=== PATIENT | female | born 1955 | race Caucasian/White ===

== ENCOUNTER 2017-09-01 16:46 | Emergency (ER) | payer MEDICAID ==
[~2017-09-01] VITALS: Ht 165.1 cm; Wt 52.2 kg
[~2017-09-01 16:46] MED LIST: ALBU18HF2 IH; ARIP5TAB4 PO; BAC10T PO; BUPR150T8 PO; CALC260T6 PO; CLIN-80 PO; CLON-527 PO; IBUP-1984 PO; LEVA15HF4 IH; LUBI8CAP PO; NICO-62 TD; NITR100C PO; OMEP20TA23 PO; PRED20TA PO; PROP20TA6 PO; ROSU20TA PO; TRAM50TA2 PO; ZOLP5TAB8 PO
[2017-09-01 16:55] VITALS: BP 130/76
== END 2017-09-01 19:04 | disposition home or self-care (01) ==
LOC: ER 16:47
DX: S40.021A Contusion of right upper arm, initial encounter (principal); J44.9 Chronic obstructive pulmonary disease, unspecified; G89.29 Other chronic pain; I49.9 Cardiac arrhythmia, unspecified; F17.200 Nicotine dependence, unspecified, uncomplicated; Z56.0 Unemployment, unspecified; Z79.899 Other long term (current) drug therapy; X58.XXXA Exposure to other specified factors, initial encounter; Y93.89 Activity, other specified; Y92.89 Other specified places as the place of occurrence of the external cause; Y99.8 Other external cause status
CPT/HCPCS: 99281

== ENCOUNTER 2017-12-10 13:32 | Emergency (ER) | payer MEDICAID ==
[~2017-12-10] VITALS: Ht 565.3 cm; Wt 49.0 kg
[~2017-12-10 13:32] MED LIST changes: -ARIP5TAB4 PO; -BUPR150T8 PO; -CALC260T6 PO; -CLIN-80 PO; +HALO2TAB PO; -IBUP-1984 PO; -LEVA15HF4 IH; +LORA-269 PO; -LUBI8CAP PO; +LURA40TA3 PO; -NICO-62 TD; -NITR100C PO; -OMEP20TA23 PO; -PRED20TA PO; -ROSU20TA PO; -TRAM50TA2 PO; -ZOLP5TAB8 PO
[2017-12-10 14:48] LABS: BASOPHILS % (AUTO) 0.3 % (0-1); EOSINOPHILS % (AUTO) 0.5 % (0-6); HEMATOCRIT 36.8 % (35.0-45.0); HEMOGLOBIN 12.7 g/dl (12.0-16.0); LYMPHOCYTES # (AUTO) 2.5 X10'3 (1.1-4.8); LYMPHOCYTES % (AUTO) 31.9 % (21-51); MEAN CORPUSCULAR HEMOGLOBIN 31.3 PG (27.0-31.0); MEAN CORPUSCULAR HGB CONC 34.5 % (33.0-36.5); MEAN CORPUSCULAR VOLUME 90.6 FL (78-98); MEAN PLATELET VOLUME 8.9 FL (7.4-10.4); MONOCYTES # (AUTO) 0.4 X10'3 (0-0.9); MONOCYTES % (AUTO) 5.5 % (2-12); NEUTROPHILS # (AUTO) 4.9 X10'3 (1.8-7.7); NEUTROPHILS % (AUTO) 61.8 % (42-75); PLATELET COUNT 216 X10'3 (140-440); RED BLOOD COUNT 4.06 X10'6 (4.20-5.60); RED CELL DISTRIBUTION WIDTH 12.9 % (11.5-14.5); WHITE BLOOD COUNT 7.9 X10'3 (4.5-11.0)
[2017-12-10 14:57] LABS: PROTHROMBIN TIME 10.3 SECONDS (9.0-12.0)
[2017-12-10 15:03] LABS: ALANINE AMINOTRANSFERASE 18 U/L (12-78); ALBUMIN 4.5 G/DL (3.4-5.0); ALBUMIN/GLOBULIN RATIO 1.1 (1.1-1.5); ALKALINE PHOSPHATASE 76 IU/L (46-116); ANION GAP 10 (8-16); ASPARTATE AMINO TRANSFERASE 21 U/L (10-37); BILIRUBIN,TOTAL 0.4 MG/DL (0.1-1.0); BLOOD UREA NITROGEN 13 MG/DL (7-18); BUN/CREATININE RATIO 12.7 (6.6-38.0); CALCIUM 9.1 MG/DL (8.5-10.1); CHLORIDE 105 MMOL/L (99-107); CREATININE 1.02 MG/DL (0.40-0.90); GLUCOSE 88 MG/DL (70-104); POTASSIUM 4.2 MMOL/L (3.5-5.1); SODIUM 141 MMOL/L (135-145); TOTAL CARBON DIOXIDE 26.5 MMOL/L (24-32); TOTAL PROTEIN 8.5 G/DL (6.4-8.2); eGFR 55 ML/MIN
[2017-12-10 15:13] LABS: ETHANOL < 0.010 GM/DL (0.0-0.010)
[2017-12-10] MEDS ORDERED: LORA10TA7 PO (15:34)
[2017-12-10] MEDS ORDERED: ZOL50T PO (15:37)
[2017-12-10 16:07] LABS: CLARITY,URINE CLEAR (Clear); COLOR,URINE YELLOW (Yellow); GLUCOSE, URINE NEGATIVE (Neg); KETONES,URINE NEGATIVE (Neg); LEUKOCYTE ESTERASE ,URINE MODERATE (Neg); NITRITES, URINE NEGATIVE (Neg); OCCULT BLOOD,URINE NEGATIVE (Neg); PH,URINE 5.5 (4.8-8.0); PROTEIN,URINE NEGATIVE (Neg); UROBILINOGEN,URINE 0.2 E.U/dL (0.2-1.0)
[2017-12-10 16:10] LABS: URINE HCG NEGATIVE (NEG)
[2017-12-10 16:12] LABS: UA COLLECTION TYPE CLN CATCH MIDSTREAM
[2017-12-10 16:15] LABS: BACTERIA,URINE NONE SEEN /HPF (Neg); MUCUS STRANDS NONE SEEN /LPF (Neg); RBC,URINE NONE SEEN /HPF (0-2); SQUAMOUS EPITHELIAL CELL,UR FEW /LPF (FEW)
[2017-12-10 16:18] LABS: URINE AMPHETAMINE SCREEN NEGATIVE (Neg); URINE BARBITUATE SCREEN NEGATIVE (Neg); URINE BENZODIAZEPINES SCREEN NEGATIVE (Neg); URINE CANNABINOID SCREEN NEGATIVE (Neg); URINE COCAINE SCREEN NEGATIVE (Neg); URINE METHADONE SCREEN NEGATIVE (Neg); URINE OPIATE SCREEN NEGATIVE (Neg); URINE PHENCYCLIDINE SCREEN NEGATIVE (Neg)
[2017-12-10] MEDS ORDERED: mirtazapine 15mg tablet PO SCH (21:00)
[2017-12-10] MEDS: propranolol 10mg tablet PO SCH (21:13)
[2017-12-10] MEDS: baclofen 10mg tablet PO SCH (21:13)
[2017-12-11 05:33] VITALS: BP 93/58
[2017-12-11] MEDS: propranolol 10mg tablet PO SCH ×2 (08:00→13:00)
[2017-12-11] MEDS ORDERED: sertraline 50mg tablet PO SCH (08:00)
[2017-12-11] MEDS ORDERED: loratadine 10mg tablet PO SCH (08:00)
[2017-12-11] MEDS: baclofen 10mg tablet PO SCH (09:19)
[2017-12-11] MEDS ORDERED: MECL-111 PO (11:37)
[2017-12-11] MEDS ORDERED: DIPH25CA83 PO (11:37)
[2017-12-11] MEDS ORDERED: diphenhydrAMINE 25mg capsule PO PRN (11:55)
[2017-12-11] MEDS ORDERED: meclizine 12.5mg tablet PO PRN (12:00)
== END 2017-12-11 14:18 ==
LOC: ER 13:32
DX: F32.9 Major depressive disorder, single episode, unspecified (principal); R45.851 Suicidal ideations; J44.9 Chronic obstructive pulmonary disease, unspecified; G89.29 Other chronic pain; F17.200 Nicotine dependence, unspecified, uncomplicated; Z79.899 Other long term (current) drug therapy; Z56.0 Unemployment, unspecified
CPT/HCPCS: 36415; 80053; 80305; 80320; 81001; 81025; 84443; 85025; 85610; 87088; 99285; A6253; A6449; J8597; Q0163

== ENCOUNTER 2018-06-12 15:56 | Emergency (ER) | payer MEDICAID ==
[~2018-06-12] VITALS: Ht 167.6 cm; Wt 60.9 kg
[~2018-06-12 15:56] MED LIST changes: +AZIT250T PO; -CLON-527 PO; +DIPH25CA83 PO; -HALO2TAB PO; -LORA-269 PO; +LORA10TA7 PO; -LURA40TA3 PO; +MECL-111 PO; +ZOL50T PO
[2018-06-12 17:01] VITALS: BP 168/95
[2018-06-12] MEDS ORDERED: PENI500T2 PO (19:17)
== END 2018-06-12 19:23 | disposition home or self-care (01) ==
LOC: ER 15:57
DX: N81.4 Uterovaginal prolapse, unspecified (principal); K08.89 Other specified disorders of teeth and supporting structures; J44.9 Chronic obstructive pulmonary disease, unspecified; G89.29 Other chronic pain; Z56.0 Unemployment, unspecified; Z98.890 Other specified postprocedural states; Z79.2 Long term (current) use of antibiotics; Z79.899 Other long term (current) drug therapy
CPT/HCPCS: 99283

== ENCOUNTER 2018-07-30 23:30 | Inpatient (IN) | payer MEDICAID ==
[~2018-07-30] VITALS: Ht 165.1 cm; Wt 57.0 kg
[~2018-07-30 23:30] MED LIST changes: -ALBU18HF2 IH; -AZIT250T PO; -BAC10T PO; +BACL10TA PO; +CALC-1197 PO; +CLON-527 PO; -DIPH25CA83 PO; -LORA10TA7 PO; +LURA40TA3 PO; -MECL-111 PO; +MIRT15TA PO; -ZOL50T PO
[2018-07-31] MEDS ORDERED: mag hydrox/Alum hydrox/simeth 30ml oral suspension PO PRN (01:00)
[2018-07-31] MEDS ORDERED: magnesium hydroxide 30ml (MOM) UD suspension PO PRN (01:00)
[2018-07-31] MEDS ORDERED: acetaminophen 325mg tablet PO PRN ×2 (01:00)
[2018-07-31 01:31] VITALS: BP 114/74
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
[2018-07-31] MEDS: cephalexin 500mg capsule PO SCH ×4 (03:35→20:11)
[2018-07-31] MEDS: baclofen 10mg tablet PO SCH ×3 (07:14→20:12)
[2018-07-31 07:27] LABS: CHOL/HDL RATIO 6.2 (0.00-4.99); CHOLESTEROL 197 MG/DL (0-200); HDL CHOLESTEROL 32 MG/DL (35-60); LDL CHOLESTEROL 140 MG/DL (50-100); TRIGLYCERIDES 169 MG/DL (20-135)
[2018-07-31 07:48] LABS: HEMOGLOBIN A1C 5.5 % (4.5-6.2)
[2018-07-31] MEDS: propranolol 10mg tablet PO SCH ×3 (07:55→20:12)
[2018-07-31 08:00] VITALS: BP 112/55
[2018-07-31] MEDS ORDERED: lurasidone 20mg tablet PO SCH (08:00)
[2018-07-31] MEDS: calcium carbonate/vitamin D3 tablet PO SCH ×2 (08:20→19:23)
[2018-07-31] MEDS: clonazePAM 1mg tablet PO PRN ×2 (09:24→19:23)
[2018-07-31] MEDS: tuberculin, purif. prot. deriv. 5 units/0.1ml ID ONE (10:00)
[2018-07-31] MEDS: nicotine 21mg patch - 24 hr TD SCH (11:42)
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
[2018-07-31] MEDS: NICOTINE POLACRILEX 4 MG LOZENGE BC PRN (16:09)
[2018-07-31] MEDS: lactobacillus rhamnosus 10,000 MMU CELLS/CAPSULE PO SCH (19:23)
[2018-07-31 19:29] VITALS: BP 114/66
[2018-07-31] MEDS: mirtazapine 15mg tablet PO SCH (20:11)
[2018-07-31] MEDS ORDERED: risperiDONE 2mg tablet PO ONE (21:00)
[2018-07-31 23:20] LABS: CLARITY,URINE CLEAR (Clear); COLOR,URINE YELLOW (Yellow); GLUCOSE, URINE NEGATIVE (Neg); KETONES,URINE NEGATIVE (Neg); LEUKOCYTE ESTERASE ,URINE TRACE (Neg); NITRITES, URINE NEGATIVE (Neg); OCCULT BLOOD,URINE NEGATIVE (Neg); PROTEIN,URINE NEGATIVE (Neg); UROBILINOGEN,URINE 0.2 E.U/dL (0.2-1.0)
[2018-07-31 23:27] LABS: UA COLLECTION TYPE CLN CATCH MIDSTREAM
[2018-07-31 23:28] LABS: BACTERIA,URINE NONE SEEN /HPF (Neg); MUCUS STRANDS NONE SEEN /LPF (Neg); RBC,URINE NONE SEEN /HPF (0-2); WBC,URINE NONE SEEN /HPF (0-4)
[2018-07-31 23:30] LABS: SQUAMOUS EPITHELIAL CELL,UR FEW /LPF (FEW)
--- NOTE | 2018-07-31 23:49 | NUR ---
Chief Complaint suicidal ideation, psychosis, auditory command hallucinations Legal hold: 5150 Client on involuntary status for DTS Report received from nurse Handsel with use of SBAR Why are they here: Patient presented with active suicidal ideation and a plan to overdose or jump in front of a car. She was positive for methamphetamines and currently has a UTI. She has command hallucinations telling her to kill herself Diagnosis/presenting symptoms: psychosis, SI Assessment What has happened this shift: Pt was in her room at change of shift. 1:1 assessment completed at bedside. Pt denies s/i stating, "I just feel like crying all the time, Im depressed because my medicine never helps me." Pt is very anxious, states she has no appetite because she is "anxious and nervous". Pt denies hearing voices but seems preoccupied at times. Pt was seen by hospitalist gabriel. CC urine specimen was sent to the lab for a culture as culture was not completed w specimen obtained yesterday. Pt has already started abx. Pt reports she sleeps well, has 4/10 pain in her back. Pt was given baclofen w/scheduled meds. S/I, H/I: pt denies s/i A/VH: pt denied a/vh but appears internally preoccupied at times during conversation Sleep:pt was sleeping at change of shift. ADL's:Independent, showered today Group attendance: no Were meds taken:yes Any med S/E no Mental Status Exam Appearance: adequately groomed and dressed Eye contact:fair Behavior:guarded, isolative, cooperative Speech:clear, regular rate and rhythm Mood:depressed Affect: blunted Thought process: disorganized, paranoid Thought Content:paranoia, fear of returning to the place she was staying Cognition: intact Insight: poor Judgment: poor Interventions PRN's used: Klonopin Therapeutic interventions: 1:1assessment, active listening, q15 min checks for safety Restraints/seclusion/emergency medication: none Justification of Continued Inpatient Treatment: Patient is suicidal and needs medication stabilization
[2018-08-01 08:00] VITALS: BP 103/75
[2018-08-01] MEDS: propranolol 10mg tablet PO SCH ×2 (08:00→13:00)
[2018-08-01] MEDS: cephalexin 500mg capsule PO SCH ×3 (08:10→20:05)
[2018-08-01] MEDS: baclofen 10mg tablet PO SCH ×3 (08:10→20:05)
[2018-08-01] MEDS: calcium carbonate/vitamin D3 tablet PO SCH ×2 (08:10→18:07)
[2018-08-01] MEDS: lactobacillus rhamnosus 10,000 MMU CELLS/CAPSULE PO SCH ×2 (08:10→20:05)
[2018-08-01] MEDS: nicotine 21mg patch - 24 hr TD SCH (08:47)
[2018-08-01] MEDS: clonazePAM 1mg tablet PO PRN ×2 (08:47→20:10)
[2018-08-01] MEDS ORDERED: hydrOXYzine 25 MG tablet PO PRN (14:15)
[2018-08-01] MEDS ORDERED: propranolol 10mg tablet PO PRN (14:20)
[2018-08-01] MEDS ORDERED: hydrOXYzine 25 MG tablet PO ONE (16:20)
--- NOTE | 2018-08-01 17:39 | NUR ---
Chief Complaint suicidal ideation, psychosis, auditory command hallucinations Legal hold: 5150 Client on involuntary status for DTS Report received from nurse Hawthorne with use of SBAR Why are they here: Patient presented with active suicidal ideation and a plan to overdose or jump in front of a car. She was positive for methamphetamines and currently has a UTI. She has command hallucinations telling her to kill herself Diagnosis/presenting symptoms: psychosis, SI Assessment What has happened this shift: Recieved pt asleep in her room. Spent majority of day in room sleeping and isolating. Encouraged to walk, read, watch tv or engage with other clients. She sees the only way to reduce anxiety coming from medications. Met with Robin Segal who prescribed atarax which she recieved along with current meds today. She was encouraged to go to groups but isolated stating "I don't want to be around other people when i'm anxious." She states that she is still hearing voices telling her to harm herself. Pre occupied most of day with getting more or different meds for anxiety. Provides scetchy details R/T losing housing. S/I, H/I:SI A/VH: command audio hallucinations Sleep:slept most of the day ADL's:Independent, showered today Group attendance: no Were meds taken:yes Any med S/E no Mental Status Exam Appearance:clean, disheveled Eye contact:fair Behavior:guarded, isolative Speech:clear, regular rate and rhythm Mood:depressed Affect: flat Thought process: disorganized Thought Content:paranoia, fear of returning to the place she was staying Cognition: intact Insight: poor Judgment: poor Interventions PRN's used: Cindy Therapeutic interventions: one to one for assessment, medication education, discussed coping skills, active listening Restraints/seclusion/emergency medication: none Justification of Continued Inpatient Treatment: Patient is suicidal and needs medication stabilization
[2018-08-01 19:56] VITALS: BP 111/74
[2018-08-01] MEDS: hydrOXYzine 25 MG tablet PO SCH (20:05)
[2018-08-01] MEDS: mirtazapine 15mg tablet PO SCH (20:05)
--- NOTE | 2018-08-01 23:31 | NUR ---
RN Progress Note: Chief Complaint: suicidal ideation, psychosis, auditory command hallucinations Legal hold: 5150 Client on involuntary status for DTS Report received from HORACE Melgoza with use of SBAR Why are they here: Patient presented with active suicidal ideation and a plan to overdose or jump in front of a car. She was positive for methamphetamines and currently has a UTI. She has command hallucinations telling her to kill herself Diagnosis/presenting symptoms: psychosis, SI Assessment What has happened this shift: Patient in the group room at the change of shift watching a movie. 1:1 assessment completed at bedside. She denies SI stating. Patient confirms hearing voices but states "They are quiet, not as bad since the put me on that hydroxyzine.", she seems internally preoccupied at times still. She states she had a BM yesterday. She is compliant with all her medication, and eats her snack this evening in the group room with others while watching a movies. She then turns herself to bed. S/I, H/I: Denies A/VH: Confirms states they a more quiet today Sleep:Currently sleeping, see sleep assessment ADL's: Independent Group attendance: No groups this shift Were meds taken: Yes Any med S/E: No Mental Status Exam Appearance: Well groomed Eye contact: Fair Behavior: Cooperative, guarded Speech: Normal rate, volume Mood: Depressed Affect: Guarded Thought process: Poor insight, poverty of thought Thought Content: Poverty of content Cognition: Intact Insight: Poor Judgment: Poor PRN's used: Klonopin Therapeutic interventions: 1:1 assessment with patient, provided active listening, maintained a safe and therapeutic environment to help establish rapport. Educated on medications. Administered medications as ordered, and monitored for side effects. Maintained Q 15 minute checks for safety. Restraints/seclusion/emergency medication: None Justification of Continued Inpatient Treatment: Patient is suicidal and needs medication stabilization
[2018-08-02] MEDS: hydrOXYzine 25 MG tablet PO SCH ×4 (02:00→20:24)
[2018-08-02] MEDS: nicotine 21mg patch - 24 hr TD SCH (07:52)
[2018-08-02] MEDS: lactobacillus rhamnosus 10,000 MMU CELLS/CAPSULE PO SCH ×2 (07:53→20:28)
[2018-08-02] MEDS: cephalexin 500mg capsule PO SCH ×3 (07:53→20:24)
[2018-08-02] MEDS: baclofen 10mg tablet PO SCH ×3 (07:53→20:27)
[2018-08-02 08:00] VITALS: BP 111/65
[2018-08-02] MEDS: clonazePAM 1mg tablet PO PRN ×2 (10:24→20:26)
[2018-08-02] MEDS: calcium carbonate/vitamin D3 tablet PO SCH ×2 (10:24→20:23)
--- NOTE | 2018-08-02 17:50 | NUR ---
RN Progress Note: Chief Complaint: suicidal ideation, psychosis, auditory command hallucinations Legal hold: 5150 Client on involuntary status for DTS Report received from HORACE Melgoza with use of SBAR Why are they here: Patient presented with active suicidal ideation and a plan to overdose or jump in front of a car. She was positive for methamphetamines and currently has a UTI. She has command hallucinations telling her to kill herself Diagnosis/presenting symptoms: psychosis, SI Assessment What has happened this shift: Patient was asleep at change of shift and up for breakfast. Patient has been anxious all day. Patient states to RN she if fine and wants to go home. RN asked patient where is home and she states she has a roommate. Patient denies SI/HI and states the medication is helping her auditory hallucinations. Patient then speaking to manager social responsibility and RN overheard her talk about going to [facility]. Patient was anxious all day and kept asking for medication early. Patient is on Atarax Q 6 hours and Klonopin, BID. Patient was waiting to see Physician and sat outside his door for a couple of hours until she was called. RN advised patient that she doesn't have to wait by the door and she can relax and he will call for her. Patient didn't want to miss him so she sat in the hallway. S/I, H/I: Denies A/VH: States AH are diminished since she started the medication. Sleep:Patient took a morning nap. ADL's: Independent Group attendance: Patient did not attend groups. Were meds taken: Yes Any med S/E: No Mental Status Exam Appearance: Messy, greasy hair. Eye contact: Fair Behavior: Cooperative, guarded Speech: Normal rate, volume Mood: Depressed Affect: Guarded Thought process: Poor insight, poverty of thought Thought Content: Poverty of content Cognition: Intact Insight: Poor Judgment: Poor PRN's used: Klonopin Therapeutic interventions: 1:1 assessment with patient, provided active listening, maintained a safe and therapeutic environment to help establish rapport. Educated on medications. Administered medications as ordered, and monitored for side effects. Maintained Q 15 minute checks for safety. Restraints/seclusion/emergency medication: None Justification of Continued Inpatient Treatment: Patient is suicidal and needs medication stabilization
[2018-08-02 20:00] VITALS: BP 110/76
[2018-08-02] MEDS: busPIRone 5mg tablet PO SCH (20:24)
[2018-08-02] MEDS: mirtazapine 15mg tablet PO SCH (20:26)
[2018-08-02] MEDS: risperiDONE 2mg tablet PO SCH (20:27)
[2018-08-02] MEDS ORDERED: risperiDONE 0.5mg tablet PO SCH ×3 (21:00)
[2018-08-02] MEDS ORDERED: risperiDONE 2mg tablet PO SCH ×2 (21:00)
--- NOTE | 2018-08-02 22:51 | NUR ---
RN Progress Note: Chief Complaint: suicidal ideation, psychosis, auditory command hallucinations Legal hold: 5125 Client on involuntary status for DTS Report received from HORACE Melgoza with use of SBAR Why are they here: Patient presented with active suicidal ideation and a plan to overdose or jump in front of a car. She was positive for methamphetamines and currently has a UTI. She has command hallucinations telling her to kill herself Diagnosis/presenting symptoms: psychosis, SI Assessment What has happened this shift: Patient was asleep at change of shift and up for breakfast. Patient has been anxious all day. Patient states to RN she if fine and wants to go home. RN asked patient where is home and she states she has a roommate. Patient denies SI/HI and states the medication is helping her auditory hallucinations. Patient then speaking to director social welfare and RN overheard her talk about going to [facility]. Patient was anxious all day and kept asking for medication early. Patient is on Atarax Q 6 hours and Klonopin, BID. Patient was waiting to see Physician and sat outside his door for a couple of hours until she was called. RN advised patient that she doesn't have to wait by the door and she can relax and he will call for her. Patient didn't want to miss him so she sat in the hallway. S/I, H/I: Denies A/VH: States AH are diminished since she started the medication. Sleep:Patient took a morning nap. ADL's: Independent Group attendance: Patient did not attend groups. Were meds taken: Yes Any med S/E: No Mental Status Exam Appearance: Messy, greasy hair. Eye contact: Fair Behavior: Cooperative, guarded Speech: Normal rate, volume Mood: Depressed Affect: Guarded Thought process: Poor insight, poverty of thought Thought Content: Poverty of content Cognition: Intact Insight: Poor Judgment: Poor PRN's used: Klonopin Therapeutic interventions: 1:1 assessment with patient, provided active listening, maintained a safe and therapeutic environment to help establish rapport. Educated on medications. Administered medications as ordered, and monitored for side effects. Maintained Q 15 minute checks for safety. Restraints/seclusion/emergency medication: None Justification of Continued Inpatient Treatment: Patient is suicidal and needs medication stabilization Addendum: 08/02/18 at 2252 by Agnes Walters RN entered in error, see other note.
--- NOTE | 2018-08-02 22:53 | NUR ---
RN Progress Note: Chief Complaint: suicidal ideation, psychosis, auditory command hallucinations Legal hold: 5250 Client on involuntary status for DTS Report received from HORACE Armendariz with use of SBAR Why are they here: Patient presented with active suicidal ideation and a plan to overdose or jump in front of a car. She was positive for methamphetamines and currently has a UTI. She has command hallucinations telling her to kill herself Diagnosis/presenting symptoms: psychosis, SI Assessment What has happened this shift: Patient was in community room at change of shift. Presented to this instructional writer immediately requesting her medication. Patient states she has been anxious all day and wants to know why doctor will not prescribe her usual dosages or usual medications. Presented her with 5250 paperwork, refused to sign, educated for purpose and her right to hearing. Patient asked if she could request a different provider. Patient denies SI/HI and states she continues to hear voices, but did not elaborate on what they were saying "they are just the usual voices". Patient is on Atarax Q 6 hours and Klonopin, BID. Patient asked if she could call someone to bring her clothes, but didn't pursue any further. S/I, H/I: Denies A/VH: States AH are diminished "just the usual voices now" Sleep:See sleep report. ADL's: Independent Group attendance: Were meds taken: Yes Any med S/E: No Mental Status Exam Appearance: well groomed, hair brushed Eye contact: Fair Behavior: Cooperative, guarded Speech: Normal rate, volume Mood: Depressed, anxious Affect: Guarded Thought process: Poor insight, poverty of thought Thought Content: Poverty of content Cognition: Intact Insight: Poor Judgment: Poor PRN's used: Klonopin Therapeutic interventions: 1:1 assessment with patient, provided active listening, maintained a safe and therapeutic environment to help establish rapport. Educated on medications. Administered medications as ordered, and monitored for side effects. Maintained Q 15 minute checks for safety. Restraints/seclusion/emergency medication: None Justification of Continued Inpatient Treatment: Patient is DTS and needs medication stabilization
[2018-08-03] MEDS: hydrOXYzine 25 MG tablet PO SCH (02:00)
[2018-08-03 07:58] VITALS: BP 92/58
[2018-08-03] MEDS: calcium carbonate/vitamin D3 tablet PO SCH ×2 (10:39→19:13)
[2018-08-03] MEDS: nicotine 21mg patch - 24 hr TD SCH (10:39)
[2018-08-03] MEDS: busPIRone 5mg tablet PO SCH ×3 (10:39→21:14)
[2018-08-03] MEDS: lactobacillus rhamnosus 10,000 MMU CELLS/CAPSULE PO SCH ×2 (10:40→21:15)
[2018-08-03] MEDS: clonazePAM 1mg tablet PO PRN ×2 (10:40→21:15)
[2018-08-03] MEDS: baclofen 10mg tablet PO SCH ×3 (10:40→21:14)
[2018-08-03] MEDS: hydrOXYzine 25 MG tablet PO PRN ×3 (10:40→22:22)
[2018-08-03] MEDS: cephalexin 500mg capsule PO SCH ×3 (10:40→21:14)
--- NOTE | 2018-08-03 12:48 | NUR ---
Initial: Pt admitted to [facility] for bipolar with psychosis. Pt currently on a regular diet with documented PO intake 100% meeting nutrient needs. Noted that pt refused breakfast this AM. LBM 08/02. No edema or wounds. No nutrition diagnosis at this time. Will continue to follow. Recommendations: 1) Continue with regular diet 2) Weekly wt Addendum: 08/03/18 at [address] Amended: Links added.
--- NOTE | 2018-08-03 14:18 | NUR ---
1:1 DISCHARGE PLANNING IBETH made TC to Addis at [facility] Person [facility] [phone] regarding pt case management services and discharge planning. IBETH left message requesting a return contact. LASHONDA Buenrostro
--- NOTE | 2018-08-03 17:47 | NUR ---
RN Progress Note: Chief Complaint: suicidal ideation, psychosis, auditory command hallucinations Legal hold: 5150 Client on involuntary status for DTS Report received from HORACE Walsh with use of SBAR Why are they here: Patient presented with active suicidal ideation and a plan to overdose or jump in front of a car. She was positive for methamphetamines and currently has a UTI. She has command hallucinations telling her to kill herself Diagnosis/presenting symptoms: psychosis, SI Assessment What has happened this shift: Patient was asleep at change of shift and was awoken for breakfast but patient did not want to eat breakfast and slept until 10:30 am. RN gave patient her meds and advised patient she needs to start going to group to help her get through her anxiety by learning coping mechanisms. Patient went to part of morning group but said the topic made her cry and she went in and out of afternoon group because that topic also bothered her and she has IBS and needs to go to the [facility]. RN found patient sleeping in her bed during afternoon group. Patient is not happy she has to stay here but does not have a home to go to at this time. Patient states she is a little depressed but her main concern is her anxiety. Patient believes she is leaving this weekend. RN advised patient that is not what she has understood. RN advised patient to speak to her social services counselor. S/I, H/I: Denies A/VH: States AH are diminished since she started the medication. Sleep:Patient took a morning nap. ADL's: Independent Group attendance: Patient attended part of morning and after noon group.. Were meds taken: Yes Any med S/E: No Mental Status Exam Appearance: Messy, greasy hair. Eye contact: Fair Behavior: Cooperative, guarded Speech: Normal rate, volume Mood: Depressed Affect: Guarded Thought process: Poor insight, poverty of thought Thought Content: Poverty of content Cognition: Intact Insight: Poor Judgment: Poor PRN's used: Klonopin Therapeutic interventions: 1:1 assessment with patient, provided active listening, maintained a safe and therapeutic environment to help establish rapport. Educated on medications. Administered medications as ordered, and monitored for side effects. Maintained Q 15 minute checks for safety. Restraints/seclusion/emergency medication: None Justification of Continued Inpatient Treatment: Patient is suicidal and needs medication stabilization
[2018-08-03 19:00] VITALS: BP 115/67
[2018-08-03] MEDS: NICOTINE POLACRILEX 4 MG LOZENGE BC PRN (19:13)
[2018-08-03] MEDS: mirtazapine 15mg tablet PO SCH (21:15)
[2018-08-03] MEDS: risperiDONE 2mg tablet PO SCH (21:20)
--- NOTE | 2018-08-04 02:07 | NUR ---
RN Progress Note: Chief Complaint: suicidal ideation, psychosis, auditory command hallucinations Legal hold: 5250 Client on involuntary status for DTS Report received from HORACE Armendariz with use of SBAR Why are they here: Patient presented with active suicidal ideation and a plan to overdose or jump in front of a car. She was positive for methamphetamines and currently has a UTI. She has command hallucinations telling her to kill herself Diagnosis/presenting symptoms: psychosis, SI Assessment What has happened this shift: Patient in the recreation room at the change of shift watching a movie. 1:1 assessment completed at bedside. She denies SI stating she no longer has those thoughts, she denies depression stating "Today was a really god day," and states her mood as "good" and denies any current depression today. She feels she got really good sleep last night and then states "The medication changes are helping." She is visible on the unit this shift watching TV and interacting with other patients appropriately. After her evening medications she turns to bed, she does present later requesting Atarax for anxiety stating she was having difficulty sleeping. Atarax given at 2222 with good effect. S/I, H/I: Denies A/VH: Currently denied Sleep:Currently sleeping, see sleep assessment ADL's: Independent Group attendance: No groups this shift Were meds taken: Yes Any med S/E: No Mental Status Exam Appearance: Well groomed Eye contact: Fair Behavior: Cooperative, friendly Speech: Normal rate, volume, and rhythm Mood: states "good" Affect: Congruent to mood Thought process: Poor insight into home situation Thought Content: Logical, focused on getting better Cognition: Intact Insight: Poor Judgment: Fair PRN's used: Klonopin Therapeutic interventions: 1:1 assessment with patient, provided active listening, maintained a safe and therapeutic environment to help maintain rapport. Educated on medications. Administered medications as ordered, and monitored for side effects. Maintained Q 15 minute checks for safety. Restraints/seclusion/emergency medication: None Justification of Continued Inpatient Treatment: Patient is suicidal and needs medication stabilization
[2018-08-04 08:00] VITALS: BP 92/56
[2018-08-04] MEDS: cephalexin 500mg capsule PO SCH ×2 (08:25→12:32)
[2018-08-04] MEDS: busPIRone 5mg tablet PO SCH ×2 (08:25→12:32)
[2018-08-04] MEDS: lactobacillus rhamnosus 10,000 MMU CELLS/CAPSULE PO SCH (08:25)
[2018-08-04] MEDS: baclofen 10mg tablet PO SCH ×2 (08:26→12:32)
[2018-08-04] MEDS: calcium carbonate/vitamin D3 tablet PO SCH ×2 (08:26→17:27)
[2018-08-04] MEDS: nicotine 21mg patch - 24 hr TD SCH (08:27)
[2018-08-04] MEDS: clonazePAM 1mg tablet PO PRN (08:28)
[2018-08-04] MEDS: hydrOXYzine 25 MG tablet PO PRN ×2 (12:32→17:40)
[2018-08-04] MEDS: NICOTINE POLACRILEX 4 MG LOZENGE BC PRN ×2 (14:00→17:40)
--- NOTE | 2018-08-04 14:12 | NUR ---
RN Progress Note: Chief Complaint: suicidal ideation, psychosis, auditory command hallucinations Legal hold: 5250 Client on involuntary status for DTS Report received from HORACE Walsh with use of SBAR Why are they here: Patient presented with active suicidal ideation and a plan to overdose or jump in front of a car. She was positive for methamphetamines and currently has a UTI. She had command hallucinations telling her to kill herself Diagnosis/presenting symptoms: Bipolar with psychosis, +AH, anxiety Assessment Pt denies depression and SI, answers yes to having AH, states "I hear them all the time" but then when asked if she had heard any this morning she replied "no." When asked if she heard them last night, she hesitated then stated she couldn't remember what they said. Pt also answered yes to VH and stated, "I see things all the time," elaborated that she sees faces in the clouds or trees. Pt denied seeing anything unusual this morning or last night. Pt requested Klonopin 1 mg at 0828 for c/o anxiety, requested Atarax 50 mg at 1230 again for anxiety, requested a nicotine lozenge at 1400. Pt states she has had a couple of good days and believes that the doctor may let her leave today. S/I, H/I: Pt denies A/VH: Pt says yes to both but denied any AH or VH so far today Sleep: slept per noc shift report ADL's: Independent Group attendance: Attended groups Were meds taken: Yes Any med S/E: No Mental Status Exam Appearance: Well groomed Eye contact: good Behavior: Cooperative, friendly Speech: Normal rate, volume, and rhythm Mood: "I've had a couple of good days." Affect: Appropriate Thought process: linear Thought Content: Focused on discharge Cognition: Intact Insight: Poor Judgment: Fair PRN's used: Klonopin 1 mg, Atarax 50 mg, Nicotine Lozenge 4 mg Therapeutic interventions: 1:1 assessment, active listening, medication administration & monitoring, Q 15 min checks Restraints/seclusion/emergency medication: None Justification of Continued Inpatient Treatment: Pt is unable to formulate a viable plan for food, clothing, and intermediate
[2018-08-04] MEDS ORDERED: RISP3TAB3 PO (16:07)
[2018-08-04] MEDS ORDERED: BUSP5TAB26 PO (16:07)
[2018-08-04] MEDS ORDERED: PROP20TA6 PO (16:07)
[2018-08-04] MEDS ORDERED: CEPH500C5 PO (16:07)
[2018-08-04] MEDS ORDERED: CLON-514 PO (16:07)
[2018-08-04] MEDS ORDERED: LACT1CAP26 PO (16:07)
[2018-08-04] MEDS ORDERED: MIRT15TA8 PO ×2 (16:07→16:38)
[2018-08-04] MEDS ORDERED: HYDR50TA65 PO (16:07)
[2018-08-04] MEDS ORDERED: BACL10TA PO (16:11)
--- NOTE | 2018-08-04 19:54 | NUR ---
DISCHARGE NOTE Patient expresses readiness for discharge, does not appear to be in any physical/emotional distress. Reports no complaints re mood, denies S/I. Instructed patient on follow up care (see discharge packet for F/U instructions), educated on discharge medications (prescriptions called in to [facility] [address]). Valuables inventoried and returned to patient. Pt accompanied by melissa Vaughn and ambulated off the unit at 0700, transported home by [facility].
== END 2018-08-04 07:00 | disposition home or self-care (01) | DRG 753 ==
LOC: ADULT MH 23:30
PROVIDERS: ADMIT Psychiatry & Neurology Psychiatry; ATTEND Psychiatry & Neurology Psychiatry
DX: F31.5 Bipolar disorder, current episode depressed, severe, with psychotic features (principal); F15.151 Other stimulant abuse with stimulant-induced psychotic disorder with hallucinations; R45.851 Suicidal ideations; N39.0 Urinary tract infection, site not specified; F41.9 Anxiety disorder, unspecified; G89.29 Other chronic pain; F41.0 Panic disorder [episodic paroxysmal anxiety]; J44.9 Chronic obstructive pulmonary disease, unspecified; N18.9 Chronic kidney disease, unspecified; Z85.118 Personal history of other malignant neoplasm of bronchus and lung; Z87.891 Personal history of nicotine dependence
CPT/HCPCS: 36415; 80061; 81001; 83036; 87070; 87088; Q0177

== ENCOUNTER 2018-09-09 12:37 | Emergency (ER) | payer MEDICAID ==
[~2018-09-09] VITALS: Ht 177.8 cm; Wt 68.0 kg
[~2018-09-09 12:37] MED LIST changes: +BUSP5TAB26 PO; +CEPH500C5 PO; +CLON-514 PO; -CLON-527 PO; +HYDR50TA65 PO; +LACT1CAP26 PO; -LURA40TA3 PO; -MIRT15TA PO; +MIRT15TA8 PO; +RISP3TAB3 PO
[2018-09-09] MEDS ORDERED: LORazepam 2 mg/ml vial IM ONE (12:50)
[2018-09-09] MEDS ORDERED: haloperidol lactate 5mg/ml inj IM ONE (12:50)
[2018-09-09] MEDS ORDERED: diphenhydrAMINE 50 mg/ml inj IM ONE (12:50)
[2018-09-09] MEDS ORDERED: haloperidol lactate 5mg/ml inj ONE (12:55)
[2018-09-09 13:08] LABS: BASOPHILS % (AUTO) 0.2 % (0-1); EOSINOPHILS % (AUTO) 0.2 % (0-6); HEMATOCRIT 34.5 % (35.0-45.0); HEMOGLOBIN 11.5 g/dl (12.0-16.0); LYMPHOCYTES # (AUTO) 3.2 X10'3 (1.1-4.8); LYMPHOCYTES % (AUTO) 16.2 % (21-51); MEAN CORPUSCULAR HEMOGLOBIN 29.8 PG (27.0-31.0); MEAN CORPUSCULAR HGB CONC 33.5 g/dL (33.0-36.5); MEAN CORPUSCULAR VOLUME 88.9 FL (78-98); MEAN PLATELET VOLUME 8.2 FL (7.4-10.4); MONOCYTES # (AUTO) 1.7 X10'3 (0-0.9); MONOCYTES % (AUTO) 8.7 % (2-12); NEUTROPHILS # (AUTO) 14.6 X10'3 (1.8-7.7); NEUTROPHILS % (AUTO) 74.7 % (42-75); PLATELET COUNT 434 X10'3 (140-440); RED BLOOD COUNT 3.87 X10'6 (4.20-5.60); WHITE BLOOD COUNT 19.5 X10'3 (4.5-11.0)
--- NOTE | 2018-09-09 13:15 | NUR ---
PT IS STILL COMBATIVE, IN 4 POINT SOFT RESTRAINTS, ADMINISTERED 50MG BENEDRYL, 5MG HALDOL, 2MG ATIVAN. PT UNABLE TO GO TO CT AT THIS TIME OR HAVE AN EKG DONE. AWARE.
[2018-09-09 13:20] LABS: PARTIAL THROMBOPLASTIN TIME 29 SECONDS (22-32); PROTHROMBIN TIME 10.4 SECONDS (9.0-12.0)
[2018-09-09 13:22] LABS: ACETAMINOPHEN < 2.0 UG/ML (10-30); ALANINE AMINOTRANSFERASE 15 U/L (12-78); ALBUMIN 3.3 G/DL (3.4-5.0); ALBUMIN/GLOBULIN RATIO 0.7 (1.1-1.5); ALKALINE PHOSPHATASE 104 IU/L (46-116); ANION GAP 14 (8-16); ASPARTATE AMINO TRANSFERASE 14 U/L (10-37); BILIRUBIN,TOTAL 0.3 MG/DL (0.1-1.0); BLOOD UREA NITROGEN 17 MG/DL (7-18); BUN/CREATININE RATIO 8.8 (6.6-38.0); CALCIUM 10.2 MG/DL (8.5-10.1); CHLORIDE 101 MMOL/L (99-107); CREATININE 1.93 MG/DL (0.40-0.90); ETHANOL < 0.010 GM/DL (0.0-0.010); GLUCOSE 116 MG/DL (70-104); MAGNESIUM 1.9 MG/DL (1.5-2.4); SODIUM 140 MMOL/L (135-145); TOTAL CARBON DIOXIDE 24.9 MMOL/L (24-32); TOTAL PROTEIN 7.9 G/DL (6.4-8.2); eGFR 26 ML/MIN
[2018-09-09 13:40] LABS: CLARITY,URINE CLEAR (Clear); COLOR,URINE YELLOW (Yellow); GLUCOSE, URINE NEGATIVE (Neg); KETONES,URINE NEGATIVE (Neg); LEUKOCYTE ESTERASE ,URINE NEGATIVE (Neg); NITRITES, URINE NEGATIVE (Neg); OCCULT BLOOD,URINE NEGATIVE (Neg); PROTEIN,URINE NEGATIVE (Neg); UROBILINOGEN,URINE 0.2 E.U/dL (0.2-1.0)
[2018-09-09 13:46] LABS: UA COLLECTION TYPE STRAIGHT CATH
[2018-09-09 13:54] LABS: URINE AMPHETAMINE SCREEN POSITIVE (Neg); URINE BARBITUATE SCREEN NEGATIVE (Neg); URINE BENZODIAZEPINES SCREEN NEGATIVE (Neg); URINE CANNABINOID SCREEN NEGATIVE (Neg); URINE COCAINE SCREEN NEGATIVE (Neg); URINE METHADONE SCREEN NEGATIVE (Neg); URINE OPIATE SCREEN NEGATIVE (Neg); URINE PHENCYCLIDINE SCREEN NEGATIVE (Neg)
[2018-09-09] MEDS ORDERED: DIVA500T40 PO (14:12)
[2018-09-09] MEDS ORDERED: RISP3TAB3 PO (14:12)
[2018-09-09] MEDS ORDERED: DIPH25CA6 PO (14:12)
[2018-09-09] MEDS ORDERED: NITR100C11 PO (14:12)
[2018-09-09] MEDS ORDERED: MECL-111 PO (14:12)
[2018-09-09] MEDS ORDERED: IBUP-1986 PO (14:30)
[2018-09-09] MEDS ORDERED: LORA10TA7 PO (14:30)
[2018-09-09] MEDS ORDERED: ERGO500054 PO (14:30)
[2018-09-09] MEDS ORDERED: BACL20TA PO (14:30)
[2018-09-09] MEDS ORDERED: LURA80TA3 PO (14:38)
[2018-09-09] MEDS ORDERED: normal saline 1000ML IV soln IVB ONE (15:00)
[2018-09-09 18:39] VITALS: BP 128/69
== END 2018-09-09 19:02 | disposition home or self-care (01) ==
LOC: ER 12:38
DX: F32.9 Major depressive disorder, single episode, unspecified (principal); F41.9 Anxiety disorder, unspecified; R45.1 Restlessness and agitation; R41.0 Disorientation, unspecified; F15.10 Other stimulant abuse, uncomplicated; J44.9 Chronic obstructive pulmonary disease, unspecified; G89.29 Other chronic pain; M54.9 Dorsalgia, unspecified; Z56.0 Unemployment, unspecified
CPT/HCPCS: 36415; 70450; 71045; 80053; 80305; 80320; 80329; 81003; 83735; 85025; 85610; 85730; 93005; 96360; 96372; 99284; J1200; J1630; J2060; J7030

== ENCOUNTER → 2019-04-17 | Emergency (ER) | payer MEDICAID ==
[~2019-04-17] VITALS: Ht 165.1 cm; Wt 58.7 kg
[~2019-04-17] MED LIST changes: +BAC10T PO; +BACI28.42 TP; +BACL20TA PO; -CEPH500C5 PO; +DIVA500T40 PO; +ERGO500054 PO; +GABA-532 PO; +IBUP-1986 PO; -LACT1CAP26 PO; +LORA10TA7 PO; +LORazepam 1 MG tablet PO ONE; +LURA80TA3 PO; +MECL-111 PO; +QUET100T33 PO; +QUET300T5 PO; +RISP1TAB3 PO; +RISP2TAB3 PO; +TRAM50TA2 PO; +acetaminophen 325mg tablet PO PRN; +loratadine 10mg tablet PO SCH; +mag hydrox/Alum hydrox/simeth 30ml oral suspension PO PRN; +magnesium hydroxide 30ml (MOM) UD suspension PO PRN; +meclizine 12.5mg tablet PO PRN; +nicotine 21mg patch - 24 hr TD ONE; +propranolol 40mg tablet PO PRN
[2019-04-17 19:21] LABS: BASOPHILS % (AUTO) 0.5 % (0-1); EOSINOPHILS % (AUTO) 0.3 % (0-6); HEMATOCRIT 35.1 % (35.0-45.0); HEMOGLOBIN 11.8 g/dl (12.0-16.0); LYMPHOCYTES % (AUTO) 21.3 % (21-51); MEAN CORPUSCULAR HEMOGLOBIN 31.3 PG (27.0-31.0); MEAN CORPUSCULAR HGB CONC 33.8 g/dL (33.0-36.5); MEAN CORPUSCULAR VOLUME 92.7 FL (78-98); MEAN PLATELET VOLUME 8.6 FL (7.4-10.4); MONOCYTES # (AUTO) 0.4 X10'3 (0-0.9); MONOCYTES % (AUTO) 4.7 % (2-12); NEUTROPHILS # (AUTO) 6.8 X10'3 (1.8-7.7); NEUTROPHILS % (AUTO) 73.2 % (42-75); PLATELET COUNT 234 X10'3 (140-440); RED BLOOD COUNT 3.78 X10'6 (4.20-5.60); RED CELL DISTRIBUTION WIDTH 12.7 % (11.5-14.5); WHITE BLOOD COUNT 9.3 X10'3 (4.5-11.0)
[2019-04-17 19:41] LABS: ALANINE AMINOTRANSFERASE 28 U/L (12-78); ALBUMIN 4.3 G/DL (3.4-5.0); ALBUMIN/GLOBULIN RATIO 1.1 (1.1-1.5); ALKALINE PHOSPHATASE 69 IU/L (46-116); ANION GAP 12 (8-16); ASPARTATE AMINO TRANSFERASE 25 U/L (10-37); BILIRUBIN,TOTAL 0.3 MG/DL (0.1-1.0); BLOOD UREA NITROGEN 16 MG/DL (7-18); BUN/CREATININE RATIO 11.1 (6.6-38.0); CALCIUM 9.5 MG/DL (8.5-10.1); CHLORIDE 106 MMOL/L (99-107); CREATININE 1.44 MG/DL (0.40-0.90); GLUCOSE 78 MG/DL (70-104); POTASSIUM 4.6 MMOL/L (3.5-5.1); SODIUM 143 MMOL/L (135-145); TOTAL CARBON DIOXIDE 24.6 MMOL/L (24-32); TOTAL PROTEIN 8.1 G/DL (6.4-8.2); eGFR 37 ML/MIN
[2019-04-17 19:54] LABS: ETHANOL < 0.010 GM/DL (0.0-0.010)
[2019-04-17 19:58] LABS: CLARITY,URINE CLEAR (Clear); COLOR,URINE YELLOW (Yellow); GLUCOSE, URINE NEGATIVE (Neg); KETONES,URINE NEGATIVE (Neg); LEUKOCYTE ESTERASE ,URINE NEGATIVE (Neg); NITRITES, URINE NEGATIVE (Neg); OCCULT BLOOD,URINE NEGATIVE (Neg); PROTEIN,URINE NEGATIVE (Neg); UROBILINOGEN,URINE 0.2 E.U/dL (0.2-1.0)
[2019-04-17 20:04] LABS: UA COLLECTION TYPE VOIDED
[2019-04-17 20:06] LABS: URINE AMPHETAMINE SCREEN NEGATIVE (Neg); URINE BARBITUATE SCREEN NEGATIVE (Neg); URINE BENZODIAZEPINES SCREEN NEGATIVE (Neg); URINE CANNABINOID SCREEN NEGATIVE (Neg); URINE COCAINE SCREEN NEGATIVE (Neg); URINE METHADONE SCREEN NEGATIVE (Neg); URINE OPIATE SCREEN NEGATIVE (Neg); URINE PHENCYCLIDINE SCREEN NEGATIVE (Neg)
--- NOTE | 2019-04-17 20:24 | NUR ---
Packet Faxed to [facility].
--- NOTE | 2019-04-17 21:00 | NUR ---
The is a 63 year old female who presented to the ER reporting that she was having suicidal thoughts with multible episodes earlier in the day of walking into traffic. She has paranoid delusions about "gang stalkers" trying to run her over. She talks about having voices that are controlling her. She pointed to a sore on the side of her mouth and stated it was a sign she was being "electronically tormented" She reports voices "all the time" and that they are "doing everything. They try to alondra me...." She also reports visual hallucinations.
[2019-04-17] MEDS: risperiDONE 0.5mg tablet PO SCH (21:41)
[2019-04-17] MEDS: QUETIAPINE FUMARATE 300 MG PO SCH (21:42)
--- NOTE | 2019-04-17 23:29 | NUR ---
The patient appears to be asleep
--- NOTE | 2019-04-18 00:59 | NUR ---
The patient appears to be sleeping at this time.
--- NOTE | 2019-04-18 02:49 | NUR ---
The patient appears to be sleeping
--- NOTE | 2019-04-18 05:08 | NUR ---
The patient appears to be sleeping well at this time.
--- NOTE | 2019-04-18 06:45 | NUR ---
Patient sleeping on right side. No distress observed. Continue to monitor.
--- NOTE | 2019-04-18 08:15 | NUR ---
Patient eating breakfast, no distress observed. Continue to monitor.
[2019-04-18] MEDS: ibuprofen tablet 400 MG TABLET PO PRN ×2 (08:24→19:00)
--- NOTE | 2019-04-18 08:35 | NUR ---
Patient given medication for pain to left arm. Cointinue to monitor.
--- NOTE | 2019-04-18 10:15 | NUR ---
Patient is feeling better post medication. Continue to monitor.
--- NOTE | 2019-04-18 12:03 | NUR ---
Patient sleeping. No distress observed. Continue to monitor.
--- NOTE | 2019-04-18 13:10 | NUR ---
Patient eating lunch. No distress observed. Continue to monitor.
--- NOTE | 2019-04-18 15:10 | NUR ---
Patient sleeping on right side. No distress observed. Continue to monitor.
--- NOTE | 2019-04-18 17:11 | NUR ---
Patient sleeping prone and snoring. No distress observed. Continue to monitor.
[2019-04-18 17:46] VITALS: BP 107/62
--- NOTE | 2019-04-18 18:55 | NUR ---
Client to be admitted to [facility] for DTS per JUAN Dc.
[2019-04-18] MEDS: risperiDONE 0.5mg tablet PO SCH (20:14)
[2019-04-18] MEDS: QUETIAPINE FUMARATE 300 MG PO SCH (20:14)
--- NOTE | 2019-04-18 22:08 | NUR ---
pt is sleeping now, no s/s of distress noted.
== END ==
LOC: ER 18:45
DX: F20.9 Schizophrenia, unspecified (principal); N18.9 Chronic kidney disease, unspecified; J44.9 Chronic obstructive pulmonary disease, unspecified; G89.29 Other chronic pain; F41.9 Anxiety disorder, unspecified; Z56.0 Unemployment, unspecified; Z79.899 Other long term (current) drug therapy
CPT/HCPCS: 36415; 80053; 80305; 80320; 81003; 84443; 85025; 99284; 99285

== ENCOUNTER 2019-04-18 20:56 | Inpatient (IN) | payer MEDICAID ==
[~2019-04-18] VITALS: Ht 165.1 cm; Wt 59.0 kg
[~2019-04-18 20:56] MED LIST changes: -BAC10T PO; -BACI28.42 TP; -GABA-532 PO; -LORazepam 1 MG tablet PO ONE; -QUET100T33 PO; -RISP2TAB3 PO; -TRAM50TA2 PO; -acetaminophen 325mg tablet PO PRN; -loratadine 10mg tablet PO SCH; -mag hydrox/Alum hydrox/simeth 30ml oral suspension PO PRN; -magnesium hydroxide 30ml (MOM) UD suspension PO PRN; -meclizine 12.5mg tablet PO PRN; -nicotine 21mg patch - 24 hr TD ONE; -propranolol 40mg tablet PO PRN
[2019-04-18] MEDS ORDERED: loperamide 2mg capsule PO PRN (22:30)
[2019-04-18] MEDS ORDERED: magnesium hydroxide 30ml (MOM) UD suspension PO PRN (22:30)
[2019-04-18] MEDS ORDERED: acetaminophen 325mg tablet PO PRN ×2 (22:30)
[2019-04-18] MEDS ORDERED: mag hydrox/Alum hydrox/simeth 30ml oral suspension PO PRN (22:30)
[2019-04-18] MEDS ORDERED: hydrOXYzine 25 MG tablet PO PRN (22:35)
[2019-04-18] MEDS ORDERED: meclizine 12.5mg tablet PO PRN (22:50)
[2019-04-18] MEDS ORDERED: propranolol 40mg tablet PO PRN (22:54)
[2019-04-18 23:30] VITALS: BP 127/64
--- NOTE | 2019-04-19 02:57 | NUR ---
ADMIT NOTE: Legal Hold: 5150 Exp 04/21 @ 2245 Client on involuntary status for DTS Why are they here: Pt presents to ED for SI. Pt reports she is suicidal due to the people she lives with being "drug dealers and burying her alive."Pt reports hearing voices "the voices do not want good thing for her" and are mutilating her face, so she is forced into sex trafficking. Pt is unable to make a safety plan and states would walk in front of cars if discharged. What happened this shift: Pt is a 63 year old female that arrived on the unit at 2245. Pt admitted from ED for psychosis, escorted by [facility] and [facility]. 2 Nurse skin assessment completed by this physician underwriter and HORACE Walsh. Pt presents as delusional and disorganized. Pt has a history of depression, schizophrenia, anxiety, agoraphobia. Pt presents with cha on her face and right lip. Pt reports these are from and "electric assault, it shoots rays into your skull." The "voices are mutilating my face." Pt states "I had metal coming out of my face and I had to get rid of it." Pt states voices won't let her leave [place] and if she does they will hurt her more." Pt also states "President Cecy's voice tell her not to smoke or drink coffee." Pt has a history of ETOH, last drink was 5-6 years ago and almost started drinking again. Pt backslide and used meth about 3 days ago. Pt states she feels safe her and contracts for safety. She lives in a house with 12 other people, mostly men and "they are vulgar." Pt is cooperative. Pt allowed Nicotine patch to be removed- smokes 2 packs/day. Pt reports left arm pain due to the voices shooting things at her. Pt was administered Motrin for the arm pain and Atarax for anxiety 01/02. Pt was offered a PB&J and juice. Pt retired to bed and is sleeping with no acute distress noted as of this writing. Will continue to monitor. Addendum: 04/19/19 at 0342 by Jessica Smiley RN Pt reports she has had "lots" of suicide attempts with overdosing of pills.
[2019-04-19 07:35] VITALS: BP 92/52
[2019-04-19] MEDS: loratadine 10mg tablet PO SCH (08:22)
[2019-04-19] MEDS: ibuprofen tablet 400 MG TABLET PO PRN ×2 (08:43→18:12)
[2019-04-19] MEDS: LORazepam 1 MG tablet PO PRN (08:44)
[2019-04-19] MEDS: nicotine 21mg patch - 24 hr TD SCH (08:56)
[2019-04-19 09:18] LABS: HEMOGLOBIN A1C 5.2 % (4.5-6.2)
[2019-04-19 09:22] LABS: CHOL/HDL RATIO 4.1 (0.00-4.99); CHOLESTEROL 210 MG/DL (0-200); HDL CHOLESTEROL 51 MG/DL (35-60); LDL CHOLESTEROL 138 MG/DL (50-100); TRIGLYCERIDES 159 MG/DL (20-135)
[2019-04-19] MEDS ORDERED: risperiDONE 0.5mg tablet PO ONE (12:15)
[2019-04-19] MEDS ORDERED: gabapentin 100mg capsule PO ONE (12:15)
[2019-04-19] MEDS: gabapentin 100mg capsule PO SCH ×2 (14:01→17:39)
--- NOTE | 2019-04-19 15:47 | NUR ---
Nursing Progress Note Legal hold: 5150 Client on voluntary/involuntary status for DTS Report received from HORACE Woods with use of SBAR Why are they here: Why are they here: Pt presents to ED for SI. Pt reports she is suicidal due to the people she lives with being "drug dealers and burying her alive."Pt reports hearing voices "the voices do not want good thing for her" and are mutilating her face, so she is forced into sex trafficking. Pt is unable to make a safety plan and states would walk in front of cars if discharged. Assessment What has happened this shift: The patient was asleep at change of shift. Awakened in time to have breakfast. C/O left upper arm pain which was assessed by Dr. Gonzalez. Given Motrin and Ativan for anxiety. Has rash/sore to right corner of lips, bacitracin ordered. Reports "the voices are having an electrical assault with my face, if I leave [place] they will come after me and kill me in a worse way." Delusional and disorganized thoughts. Denies suicidal thoughts. S/I, H/I:Denies A/VH: AH Sleep: Napped ADL's: Self Group attendance: yes Were meds taken:yes Any med S/E: No Mental Status Exam Appearance: Well groomed Eye contact:Direct Behavior: Calm and cooperative Speech:Clear Mood: Calm Affect: Congruent Thought process: Delusional Thought Content: assaultive with electricity Cognition:Alert Insight: Poor Judgment:Fair Interventions PRN's used:Motrin, Ativan Therapeutic interventions: Reality reorientation, medication education, q15m safety checks, 1:1 assessment, reassurance, therapeutic environment. Restraints/seclusion/emergency medication: None Justification of Continued Inpatient Treatment: Patient is at risk for readmission due to auditory hallucinations and recent suicidal thoughts of running into traffic and needs medication adjustments and further therapeutic interventions.
[2019-04-19] MEDS ORDERED: QUETIAPINE FUMARATE 300 MG PO SCH ×2 (17:00→21:00)
[2019-04-19] MEDS: NICOTINE POLACRILEX 2 MG LOZENGE BC PRN (17:39)
[2019-04-19] MEDS: baclofen 10mg tablet PO PRN (17:39)
--- NOTE | 2019-04-19 18:21 | NUR ---
OF 04/19 PATIENT IS TO HAVE OWN MED SEROQUEL XR AT 1700. Order is confusing on [facility]. Dr. Antonio fixing with pharmacist. Do not give at 0800.
[2019-04-19] MEDS ORDERED: QUETIAPINE FUMARATE 300 MG PO ONE (18:25)
[2019-04-19 19:56] VITALS: BP 124/81
[2019-04-19] MEDS: risperiDONE 0.5mg tablet PO SCH (20:22)
[2019-04-19] MEDS: bacitracin 15gm ointment TP SCH (20:22)
--- NOTE | 2019-04-19 23:09 | NUR ---
Nursing Progress Note Legal hold: 5150 Exp 04/21 @ 2245 Client on involuntary status for DTS Report received from HORACE Angulo with use of SBAR Why are they here: Pt presents to ED for SI. Pt reports she is suicidal due to the people she lives with being "drug dealers and burying her alive."Pt reports hearing voices "the voices do not want good thing for her" and are mutilating her face, so she is forced into sex trafficking. Pt is unable to make a safety plan and states would walk in front of cars if discharged. Assessment What has happened this shift: Pt was walking the hassan at shift change. Pt states her first day went well. Pt states she went to groups. Pt states the pain in her arm has decreased and the Motrin is effective. Pt compliant with medications and 1:1 assessment. Pt c/o of lower abdominal pressure and bloating, tender to palpation. No report of dysuria or hematuria. Pt has history of UTI, will request a U/A to be performed. Pt was much calmer then last night. Pt states she doesn't feel safe where she used to live and did not engage in conversation regarding "electrical assault, but did report "they want to hurt me." Pt denies suicidal thoughts. Nicotine patch was removed prior to bed. Bacitracin ointment was applied to lip. S/I, H/I: Pt denies. A/VH: +AH - "the voices want to hurt me." Sleep: See Sleep Assessment Notation ADL's: Independent Group attendance: shift supervisor melting, no group Were meds taken: Medication compliant Any med S/E: None reported or observed Mental Status Exam Appearance: Clean, well groomed, wearing own clothes Eye contact: Direct Behavior: Calm and cooperative Speech: Clear, normal rate and rhythm Mood: Calm, pleasant Affect: Congruent Thought process: Delusional Thought Content: Somatic complaint, abdominal pressure Cognition: Alert Insight: Poor Judgment:Fair Interventions PRN's used: None Therapeutic interventions: Reality reorientation, medication administration/monitoring/education, Q15 min safety checks, 1:1 assessment, reassurance, therapeutic environment. Restraints/seclusion/emergency medication: None Justification of Continued Inpatient Treatment: Patient is at risk for readmission due to auditory hallucinations and recent suicidal thoughts of running into traffic and needs medication adjustments and further therapeutic interventions.
[2019-04-20 08:00] VITALS: BP 111/60
[2019-04-20] MEDS: bacitracin 15gm ointment TP SCH ×3 (08:00→20:19)
[2019-04-20] MEDS: nicotine 21mg patch - 24 hr TD SCH (08:13)
[2019-04-20] MEDS: LORazepam 1 MG tablet PO PRN (08:13)
[2019-04-20] MEDS: loratadine 10mg tablet PO SCH (08:13)
[2019-04-20] MEDS: gabapentin 100mg capsule PO SCH ×3 (08:13→17:31)
[2019-04-20] MEDS: ibuprofen tablet 400 MG TABLET PO PRN ×2 (08:14→14:18)
[2019-04-20 11:44] LABS: CLARITY,URINE CLEAR (Clear); COLOR,URINE YELLOW (Yellow); GLUCOSE, URINE NEGATIVE (Neg); KETONES,URINE NEGATIVE (Neg); LEUKOCYTE ESTERASE ,URINE NEGATIVE (Neg); NITRITES, URINE NEGATIVE (Neg); OCCULT BLOOD,URINE NEGATIVE (Neg); PROTEIN,URINE NEGATIVE (Neg); UROBILINOGEN,URINE 0.2 E.U/dL (0.2-1.0)
[2019-04-20 11:45] LABS: UA COLLECTION TYPE CLN CATCH MIDSTREAM
[2019-04-20] MEDS: NICOTINE POLACRILEX 2 MG LOZENGE BC PRN ×3 (12:14→20:38)
[2019-04-20] MEDS: baclofen 10mg tablet PO PRN (14:18)
--- NOTE | 2019-04-20 15:16 | NUR ---
Nursing Progress Note Legal hold: 5150 Exp 04/21 @ 2245 Client on involuntary status for DTS Report received from HORACE Fisher with use of SBAR Why are they here: Pt presents to ED for SI. Pt reports she is suicidal due to the people she lives with being "drug dealers and burying her alive."Pt reports hearing voices "the voices do not want good thing for her" and are mutilating her face, so she is forced into sex trafficking. Pt is unable to make a safety plan and states would walk in front of cars if discharged. Assessment What has happened this shift: Pt up pacing the hallway. Patient c/o pain in her right am and neck requested Motrin and baclofen. Administered both. Pt requesting PRN's on and off throughout the shift ie nicotine lozenge, motrin, baclofen, lip moisturizer. Patient shared, "I do not want to go back to my house there are 12 people living there, it is a cult. You should see they were all dressed in black." UA negative S/I, H/I: Pt denies. A/VH: +AH - "the voices want to hurt me." Sleep: N/A ADL's: Independent Group attendance: in the shower during outside group Were meds taken: Medication compliant Any med S/E: None reported or observed Mental Status Exam Appearance: Clean, wearing short shorts and a tank shirt. Eye contact: Direct Behavior: Calm and cooperative Speech: Clear, normal rate and rhythm Mood: Calm, pleasant Affect: Congruent Thought process: Delusional Thought Content: Somatic complaint, abdominal pressure Cognition: Alert Insight: Poor Judgment:Fair Interventions PRN's used: None Therapeutic interventions: Reality reorientation, medication administration/monitoring/education, Q15 min safety checks, 1:1 assessment, reassurance, therapeutic environment. Restraints/seclusion/emergency medication: None Justification of Continued Inpatient Treatment: Patient is at risk for readmission due to auditory hallucinations and recent suicidal thoughts of running into traffic and needs medication adjustments and further therapeutic interventions.
[2019-04-20] MEDS: QUETIAPINE FUMARATE 300 MG PO SCH (17:32)
[2019-04-20 19:00] VITALS: BP 110/57
[2019-04-20 20:00] VITALS: BP 110/57
[2019-04-20] MEDS: risperiDONE 0.5mg tablet PO SCH (20:11)
--- NOTE | 2019-04-20 23:17 | NUR ---
Nursing Progress Note Legal hold: 5150 Exp 04/21 @ 2245 Client on involuntary status for DTS Report received from HORACE Angulo with use of SBAR Why are they here: Pt presents to ED for SI. Pt reports she is suicidal due to the people she lives with being "drug dealers and burying her alive."Pt reports hearing voices "the voices do not want good thing for her" and are mutilating her face, so she is forced into sex trafficking. Pt is unable to make a safety plan and states would walk in front of cars if discharged. Assessment What has happened this shift: Pt is observed socializing in the community room with peers at shift change. She is pleasant on approach and cooperative with 1:1 assessment. She says her day went well and she feels the medication "is working," "I am feeling less nervous and upset." She denies SI/HI/AH/VH at this time. She utilizes PRN nicotine charli before bed. Pt is medication compliant. She makes no delusional or somatic statements this shift. S/I, H/I: Pt denies. A/VH: denies Sleep: See Sleep Assessment Notation ADL's: Independent Group attendance: talent solutions manager, no group Were meds taken: Medication compliant Any med S/E: None reported or observed Mental Status Exam Appearance: Clean, well groomed, wearing own clothes Eye contact: Direct Behavior: Calm and cooperative Speech: Clear, normal rate and rhythm Mood: Calm, pleasant Affect: Congruent Thought process: WNL Thought Content: "feeling better" Cognition: Alert Insight: Poor Judgment:Fair Interventions PRN's used: Nicotine charli Therapeutic interventions: Reality reorientation, medication administration/monitoring/education, Q15 min safety checks, 1:1 assessment, reassurance, therapeutic environment. Restraints/seclusion/emergency medication: None Justification of Continued Inpatient Treatment: Patient is at risk for readmission due to auditory hallucinations and recent suicidal thoughts of running into traffic and needs medication adjustments and further therapeutic interventions.
[2019-04-21] MEDS: ibuprofen tablet 400 MG TABLET PO PRN ×2 (00:02→07:10)
[2019-04-21] MEDS: baclofen 10mg tablet PO PRN ×2 (00:02→10:52)
[2019-04-21] MEDS: nicotine 21mg patch - 24 hr TD SCH (07:09)
[2019-04-21] MEDS: bacitracin 15gm ointment TP SCH ×3 (07:10→20:07)
[2019-04-21] MEDS: gabapentin 100mg capsule PO SCH ×3 (07:10→17:17)
[2019-04-21] MEDS: loratadine 10mg tablet PO SCH (07:10)
[2019-04-21 07:39] VITALS: BP 120/72
[2019-04-21] MEDS: NICOTINE POLACRILEX 2 MG LOZENGE BC PRN ×2 (12:46→19:21)
--- NOTE | 2019-04-21 14:30 | NUR ---
Nursing Progress Note: [place] Legal hold: 5150 Exp 04/21 @ 2245 Client on involuntary status for DTS Report received from HORACE Woods with use of SBAR Why are they here: Pt presents to ED for SI. Pt reports she is suicidal due to the people she lives with being "drug dealers and burying her alive."Pt reports hearing voices "the voices do not want good thing for her" and are mutilating her face, so she is forced into sex trafficking. Pt is unable to make a safety plan and states would walk in front of cars if discharged. Assessment What has happened this shift: patient approached this sql report writer immediately upon starting shift requesting pain meds for her left arm. When asked about an injury she responded with "its the electrical currents the Audigence is sending." No identifiable injury. Appears calm, states she feels safe here. "Ever since Cecy is president, people have been after me, they threaten to kill me." "The voices tell me, they are going to kill me." Asked about 5149 expiration, when suggested she might want to stay until the voices stop, she stated "I really want a cigarette." Suggested if the voices where causing her to feel threatened and suicidal, she may want to stay a bit longer, which she then agreed with. S/I, H/I: Pt denies. But states the voices make me want to kill myself A/VH: Audio telling her they are going to kill her Sleep: 7 ADL's: Independent Group attendance: yes Were meds taken: Medication compliant Any med S/E: None reported or observed Mental Status Exam Appearance: Clean, well groomed, wearing own clothes Eye contact: Direct Behavior: Calm and cooperative Speech: Clear, normal rate and rhythm Mood: Calm, pleasant Affect: Congruent Thought process: Tangential Thought Content: Delusional Since Cecy has been president.... my arm hurts from the electrical currents they are sending Cognition: Alert Insight: Poor Judgment:Fair Interventions PRN's used: Nicotine charli, motrin, ativan, baclofen Therapeutic interventions: Reality reorientation, medication administration/monitoring/education, Q15 min safety checks, 1:1 assessment, reassurance, therapeutic environment. Restraints/seclusion/emergency medication: None Justification of Continued Inpatient Treatment: Patient is at risk for readmission due to auditory hallucinations and recent suicidal thoughts of running into traffic and needs medication adjustments and further therapeutic interventions.
[2019-04-21] MEDS ORDERED: hydrOXYzine 25 MG tablet PO PRN (15:50)
[2019-04-21] MEDS ORDERED: traMADol 50MG tablet PO PRN (15:50)
[2019-04-21] MEDS ORDERED: traMADol 50MG tablet PO ONE (15:50)
[2019-04-21] MEDS: QUETIAPINE FUMARATE 300 MG PO SCH (17:18)
[2019-04-21 20:00] VITALS: BP 127/65
[2019-04-21] MEDS ORDERED: quetiapine 100mg tablet PO SCH (21:00)
[2019-04-21] MEDS ORDERED: risperiDONE 2mg tablet PO SCH (21:00)
--- NOTE | 2019-04-22 00:29 | NUR ---
Nursing Progress Note Legal hold:vol Client on involuntary status for DTS Report received from HORACE Cruz with use of SBAR Why are they here: Pt presents to ED for SI. Pt reports she is suicidal due to the people she lives with being "drug dealers and burying her alive."Pt reports hearing voices "the voices do not want good thing for her" and are mutilating her face, so she is forced into sex trafficking. Pt is unable to make a safety plan and states would walk in front of cars if discharged. Assessment What has happened this shift: Pt utilized PRN atarax and nicotine charli for anxiety at the beginning of the shift. She also requests a bible which was given to her. Pt then states that she wants to get a prescription for the pimples on her face because before she came here" there was electricity in her face from smoking things I wasn't suppose to." Pt is cooperative with 1:1 assessment and medication compliant. She walks the unit and socializes with peers appropriately. She denies SI/HI/AH/VH at this time. S/I, H/I: Pt denies. A/VH: denies Sleep: See Sleep Assessment Notation ADL's: Independent Group attendance: mold runner, no group Were meds taken: Medication compliant Any med S/E: None reported or observed Mental Status Exam Appearance: Clean, well groomed, wearing own clothes Eye contact: Direct Behavior: Calm and cooperative Speech: Clear, normal rate and rhythm Mood: Calm, pleasant Affect: Congruent Thought process: WNL Thought Content: "feeling better" Cognition: Alert Insight: Poor Judgment:Fair Interventions PRN's used: Nicotine charli Therapeutic interventions: Reality reorientation, medication administration/monitoring/education, Q15 min safety checks, 1:1 assessment, reassurance, therapeutic environment. Restraints/seclusion/emergency medication: None Justification of Continued Inpatient Treatment: Patient is at risk for readmission due to auditory hallucinations and recent suicidal thoughts of running into traffic and needs medication adjustments and further therapeutic interventions.
[2019-04-22 07:30] VITALS: BP 101/65
[2019-04-22] MEDS: loratadine 10mg tablet PO SCH (07:40)
[2019-04-22] MEDS: gabapentin 100mg capsule PO SCH ×2 (07:41→12:19)
[2019-04-22] MEDS: nicotine 21mg patch - 24 hr TD SCH (07:42)
[2019-04-22] MEDS: bacitracin 15gm ointment TP SCH ×2 (07:44→12:29)
[2019-04-22] MEDS ORDERED: GABA-532 PO (12:13)
[2019-04-22] MEDS ORDERED: RISP2TAB3 PO (12:13)
[2019-04-22] MEDS ORDERED: LORA10TA7 PO (12:13)
[2019-04-22] MEDS ORDERED: TRAM50TA2 PO (12:13)
[2019-04-22] MEDS ORDERED: BAC10T PO (12:13)
[2019-04-22] MEDS ORDERED: QUET100T33 PO (12:13)
[2019-04-22] MEDS ORDERED: HYDR50TA65 PO (12:13)
[2019-04-22] MEDS ORDERED: BACI28.42 TP (12:13)
[2019-04-22] MEDS: ibuprofen tablet 400 MG TABLET PO PRN (12:19)
[2019-04-22] MEDS: NICOTINE POLACRILEX 2 MG LOZENGE BC PRN (12:21)
--- NOTE | 2019-04-22 14:46 | NUR ---
Discharge Note: Patient left unit @ 1425. Discharge instructions verbally explained to patient and patient provided with written copies. Written prescriptions provided to patient upon discharge. All home meds which were stored were accounted for and returned to patient on DC. All belongings were inventoried and returned to patient upon leaving unit. Patient shows no s/s of phycosis at time of discharge or within 24 hours of discharge. Provided with smoking cessation information. Ambulated from unit to hospital lobby, accompanied by PCT. Provided with CAREN duval passes per patient request.
--- NOTE | 2019-04-22 15:36 | NUR ---
SS received rt t/c from Renee [facility] to coordinate f/u care for pt. Per t/c Renee will contact pt directly to try and schedule pt's appointment as pt's d/c'd and left the facility. Dyan Priest [facility]#[id number] Addendum: 04/22/19 at 1538 by Dyan ALVES Amended: Links added.
== END 2019-04-22 14:25 | disposition home or self-care (01) | DRG 750 ==
LOC: ADULT MH 22:13
PROVIDERS: ADMIT Psychiatry & Neurology Psychiatry; ATTEND Psychiatry & Neurology Psychiatry
DX: F20.9 Schizophrenia, unspecified (principal); R45.851 Suicidal ideations; N18.3 Chronic kidney disease, stage 3 (moderate); B00.1 Herpesviral vesicular dermatitis; F41.9 Anxiety disorder, unspecified; F15.10 Other stimulant abuse, uncomplicated; F17.210 Nicotine dependence, cigarettes, uncomplicated; J44.9 Chronic obstructive pulmonary disease, unspecified; G89.29 Other chronic pain; M54.2 Cervicalgia; M54.9 Dorsalgia, unspecified; M79.602 Pain in left arm; Z81.8 Family history of other mental and behavioral disorders
CPT/HCPCS: 36415; 80061; 81003; 83036; 87081; Z7610

== ENCOUNTER 2019-04-27 23:48 | Emergency (ER) | payer MEDICAID ==
[~2019-04-27] VITALS: Ht 165.1 cm; Wt 59.1 kg
[~2019-04-27 23:48] MED LIST changes: +BAC10T PO; +BACI28.42 TP; -BACL10TA PO; -BACL20TA PO; -BUSP5TAB26 PO; -CALC-1197 PO; -CLON-514 PO; -DIVA500T40 PO; -ERGO500054 PO; +GABA-532 PO; -LURA80TA3 PO; -MIRT15TA8 PO; +QUET100T33 PO; -RISP1TAB3 PO; +RISP2TAB3 PO; -RISP3TAB3 PO; +TRAM50TA2 PO
--- NOTE | 2019-04-28 01:00 | NUR ---
atempted lab draw x 2 , charger operator aware she will draw patient
[2019-04-28 01:49] LABS: URINE AMPHETAMINE SCREEN NEGATIVE (Neg); URINE BARBITUATE SCREEN NEGATIVE (Neg); URINE BENZODIAZEPINES SCREEN NEGATIVE (Neg); URINE CANNABINOID SCREEN NEGATIVE (Neg); URINE COCAINE SCREEN NEGATIVE (Neg); URINE METHADONE SCREEN NEGATIVE (Neg); URINE OPIATE SCREEN NEGATIVE (Neg); URINE PHENCYCLIDINE SCREEN NEGATIVE (Neg)
[2019-04-28 01:50] LABS: BASOPHILS # (AUTO) 0.1 X10'3 (0-0.2); BASOPHILS % (AUTO) 0.6 % (0-1); EOSINOPHILS # (AUTO) 0.1 X10'3 (0-0.9); EOSINOPHILS % (AUTO) 1.4 % (0-6); HEMATOCRIT 31.9 % (35.0-45.0); HEMOGLOBIN 10.9 g/dl (12.0-16.0); LYMPHOCYTES # (AUTO) 2.9 X10'3 (1.1-4.8); LYMPHOCYTES % (AUTO) 32.1 % (21-51); MEAN CORPUSCULAR HEMOGLOBIN 31.4 PG (27.0-31.0); MEAN CORPUSCULAR HGB CONC 34.3 g/dL (33.0-36.5); MEAN CORPUSCULAR VOLUME 91.3 FL (78-98); MEAN PLATELET VOLUME 8.6 FL (7.4-10.4); MONOCYTES # (AUTO) 0.6 X10'3 (0-0.9); MONOCYTES % (AUTO) 6.8 % (2-12); NEUTROPHILS # (AUTO) 5.4 X10'3 (1.8-7.7); NEUTROPHILS % (AUTO) 59.1 % (42-75); PLATELET COUNT 286 X10'3 (140-440); RED BLOOD COUNT 3.49 X10'6 (4.20-5.60); RED CELL DISTRIBUTION WIDTH 12.4 % (11.5-14.5); WHITE BLOOD COUNT 9.1 X10'3 (4.5-11.0)
[2019-04-28 01:51] LABS: ALANINE AMINOTRANSFERASE 22 U/L (12-78); ALBUMIN 3.7 G/DL (3.4-5.0); ALKALINE PHOSPHATASE 73 IU/L (46-116); ANION GAP 8 (8-16); ASPARTATE AMINO TRANSFERASE 25 U/L (10-37); BILIRUBIN,TOTAL 0.2 MG/DL (0.1-1.0); BLOOD UREA NITROGEN 21 MG/DL (7-18); BUN/CREATININE RATIO 19.6 (6.6-38.0); CALCIUM 9.1 MG/DL (8.5-10.1); CHLORIDE 104 MMOL/L (99-107); CREATININE 1.07 MG/DL (0.40-0.90); GLUCOSE 83 MG/DL (70-104); POTASSIUM 4.1 MMOL/L (3.5-5.1); SODIUM 139 MMOL/L (135-145); TOTAL CARBON DIOXIDE 26.9 MMOL/L (24-32); TOTAL PROTEIN 7.5 G/DL (6.4-8.2); eGFR 52 ML/MIN
[2019-04-28 01:56] LABS: ETHANOL < 0.010 GM/DL (0.0-0.010)
[2019-04-28] MEDS ORDERED: ERYT1OIN6 LEFTEYE (01:56)
[2019-04-28] MEDS ORDERED: BACL10TA PO (02:15)
[2019-04-28] MEDS ORDERED: LORA10TA7 PO (02:38)
[2019-04-28] MEDS ORDERED: HYDR50TA65 PO (02:42)
[2019-04-28] MEDS ORDERED: GABA-532 PO (02:43)
--- NOTE | 2019-04-28 02:46 | NUR ---
MEDICATION RECONCILIATION PRINTED AND GIVEM TO DR STARR
--- NOTE | 2019-04-28 03:01 | NUR ---
PATIENT LAYING ON RIGHT SIDE COVERED WELL IN BLANKETS: EYES CLOSED RR EVEN AND UNLABORED.
[2019-04-28] MEDS ORDERED: propranolol 10mg tablet PO PRN (04:10)
[2019-04-28] MEDS ORDERED: ibuprofen tablet 400 MG TABLET PO PRN (04:10)
--- NOTE | 2019-04-28 05:01 | NUR ---
PATIENT LAYING ON BACK: EYES CLOSED: RR EVEN AND UNLABORED
--- NOTE | 2019-04-28 05:28 | NUR ---
SPOKE TO DR STARR AND PHARMACIST: BACLOFEN WILL BE CHANGED TO PRN MUSCLE SPASMS
--- NOTE | 2019-04-28 06:10 | NUR ---
PATIENT'S BELONGINGS INVENTORIED BY TECH [employer] AND PLACED IN AMBULANCE BAY LOCKERS. PATIENTS MEDICATIONS ARE INVENTORIED AND IN THE PHARMACY. REPORT TO HORACE JARA
--- NOTE | 2019-04-28 06:20 | NUR ---
PT IS RESTING IN BED. REPORT RECIEVED FROM HEMAL VU.
--- NOTE | 2019-04-28 07:00 | NUR ---
pt wondering around the halls. sitter placed with pt
[2019-04-28] MEDS ORDERED: baclofen 10mg tablet PO PRN (08:00)
[2019-04-28] MEDS: loratadine 10mg tablet PO SCH (08:46)
[2019-04-28] MEDS: quetiapine 100mg tablet PO SCH ×2 (08:46→20:34)
[2019-04-28] MEDS: erythromycin ophthalmic ointment 1gm tube LEFTEYE SCH ×4 (08:47→20:35)
[2019-04-28] MEDS: gabapentin 300mg capsule PO SCH ×3 (08:47→20:34)
--- NOTE | 2019-04-28 08:56 | NUR ---
report given rn. pt taken to overflow to room 27
--- NOTE | 2019-04-28 09:00 | NUR ---
Elopment band #23 placed on patients left wrist, patient educated.
[2019-04-28] MEDS: hydrOXYzine 25 MG tablet PO PRN (09:05)
--- NOTE | 2019-04-28 12:37 | NUR ---
PT IS TALKING WITH [facility]
--- NOTE | 2019-04-28 15:48 | NUR ---
GAVE REPORT TO HANDSEL. SHE ASSUMED CARE
--- NOTE | 2019-04-28 15:58 | NUR ---
Client asleep on her right side in no apparent distress. Respirations are even and unlabored.
--- NOTE | 2019-04-28 17:18 | NUR ---
Eye drops administered
--- NOTE | 2019-04-28 17:52 | NUR ---
Pt sitting up and eating dinner
--- NOTE | 2019-04-28 18:30 | NUR ---
Received report and assumed care of patient from HORACE Varner. The patient is asleep on her right side.
[2019-04-28] MEDS ORDERED: quetiapine 100mg tablet PO SCH (21:00)
--- NOTE | 2019-04-28 21:24 | NUR ---
Received call from Jeramie at [facility]. A UA was not performed, so a UA will be done and results sent to [facility]. They will call back if accepted.
--- NOTE | 2019-04-28 21:41 | NUR ---
The patient is up to the bathroom to provide a urine sample. Gini at [facility] office called and will take patient to [facility] herself if needed.
--- NOTE | 2019-04-28 21:43 | NUR ---
The patient unable to provide sample. Will keep trying.
--- NOTE | 2019-04-28 22:32 | NUR ---
Pt tried twice to provide a UA. Unsuccessful with both attempts.
--- NOTE | 2019-04-28 22:51 | NUR ---
Patient is asleep on her right side. Resp. unlabored. No s/s of distress.
--- NOTE | 2019-04-28 23:49 | NUR ---
Pt states she needs surgery because 'she can't go to the bathroom for hours'. Patient thinks she has a 'prolasped uterus'. Unable to void at this time.
--- NOTE | 2019-04-29 02:32 | NUR ---
The patient is sleeping on her right side. No distress noted.
[2019-04-29 05:30] VITALS: BP 107/69
--- NOTE | 2019-04-29 05:35 | NUR ---
The patient is back in bed after providing a urine sample. She has made it clear that she wishes to go up to [facility], but is also aware that there are no empty beds.
[2019-04-29 05:51] LABS: CLARITY,URINE CLEAR (Clear); COLOR,URINE STRAW (Yellow); GLUCOSE, URINE NEGATIVE (Neg); KETONES,URINE NEGATIVE (Neg); LEUKOCYTE ESTERASE ,URINE NEGATIVE (Neg); NITRITES, URINE NEGATIVE (Neg); OCCULT BLOOD,URINE NEGATIVE (Neg); PH,URINE 6.5 (4.8-8.0); PROTEIN,URINE NEGATIVE (Neg); UROBILINOGEN,URINE 0.2 E.U/dL (0.2-1.0)
[2019-04-29 05:55] LABS: UA COLLECTION TYPE OTHER
--- NOTE | 2019-04-29 06:10 | NUR ---
UA results faxed to [facility] as per request.
--- NOTE | 2019-04-29 06:42 | NUR ---
Assumed care and received report via SBAR from HORACE Rizo. Patient is currently resting in bed peacefully with no distress observed. [facility]. Will continue to monitor.
[2019-04-29] MEDS: quetiapine 100mg tablet PO SCH (07:43)
[2019-04-29] MEDS: loratadine 10mg tablet PO SCH (07:43)
[2019-04-29] MEDS: erythromycin ophthalmic ointment 1gm tube LEFTEYE SCH (07:43)
[2019-04-29] MEDS: gabapentin 300mg capsule PO SCH (07:43)
--- NOTE | 2019-04-29 08:15 | NUR ---
Received phone call from Alma at [facility]. Pt has been accepted to [facility] and county otr company truck driver will be here to pickle sorter and transfer Pt at 0845. Pt is sitting in bed eating breakfast. She took oral and opthalmic medications as ordered without incident. No distress observed. Will continue to monitor.
[2019-04-29] MEDS: hydrOXYzine 25 MG tablet PO PRN (08:18)
--- NOTE | 2019-04-29 09:06 | NUR ---
Pt resting in bed on right side. No distress observed at this time. Pt c/o some anxiety and pain so motrin and atarax were given PRN. Pt waiting for county transport to [facility]. Will continue to monitor.
--- NOTE | 2019-04-29 09:16 | NUR ---
Pt transferred to the care of [facility] school bus driver/mechanic, Carlitos. All belongings were in Pt's posession. Pt ambulated self accompanied by this va underwriter. No Distress observed. Medications retrieved from Pharmacy and given to Carlitos. Original 5150 given to Carlitos.
== END 2019-04-29 09:20 ==
LOC: ER 23:51
DX: F32.9 Major depressive disorder, single episode, unspecified (principal); R45.851 Suicidal ideations; J44.9 Chronic obstructive pulmonary disease, unspecified; G89.29 Other chronic pain; F41.9 Anxiety disorder, unspecified; F20.9 Schizophrenia, unspecified; F15.90 Other stimulant use, unspecified, uncomplicated; Z56.0 Unemployment, unspecified; Z79.899 Other long term (current) drug therapy
CPT/HCPCS: 36415; 80053; 80305; 80320; 81003; 85025; 99285; Z7610

== ENCOUNTER 2019-06-13 05:58 | Inpatient (IN) | payer MEDICAID ==
[~2019-06-13] VITALS: Ht 167.6 cm; Wt 59.1 kg
[~2019-06-13 05:58] MED LIST changes: -BAC10T PO; -BACI28.42 TP; +BACL10TA PO; +ERYT1OIN6 LEFTEYE; -MECL-111 PO; -RISP2TAB3 PO; -TRAM50TA2 PO
--- NOTE | 2019-06-13 06:38 | NUR ---
PT GIVEN WIPES TO CLEAN SELF, BELONGINGS PLACED IN BAGS AND BROUGHT OUT OF ROOM, PLACED AT CHARGE DESK FOR STONE ED TO TO COMPLETE BELONGING LIST AND LOCK UP PT BELONGINGS, PT IS NOW AMBULATORY TO BATHROOM WITH STEADY GAIT TO PROVIDE URINE SAMPLE PER ORDERS.
[2019-06-13] MEDS ORDERED: QUET400T5 PO (07:13)
[2019-06-13] MEDS ORDERED: QUET-1 PO (07:13)
[2019-06-13 07:20] LABS: BASOPHILS # (AUTO) 0.1 X10'3 (0-0.2); BASOPHILS % (AUTO) 0.9 % (0-1); EOSINOPHILS % (AUTO) 0.3 % (0-6); HEMOGLOBIN 10.5 g/dl (12.0-16.0); LYMPHOCYTES # (AUTO) 2.6 X10'3 (1.1-4.8); LYMPHOCYTES % (AUTO) 20.6 % (21-51); MEAN CORPUSCULAR HGB CONC 33.7 g/dL (33.0-36.5); MEAN CORPUSCULAR VOLUME 88.8 FL (78-98); MEAN PLATELET VOLUME 8.2 FL (7.4-10.4); MONOCYTES # (AUTO) 0.9 X10'3 (0-0.9); MONOCYTES % (AUTO) 6.9 % (2-12); NEUTROPHILS # (AUTO) 8.9 X10'3 (1.8-7.7); NEUTROPHILS % (AUTO) 71.3 % (42-75); PLATELET COUNT 399 X10'3 (140-440); RED BLOOD COUNT 3.49 X10'6 (4.20-5.60); RED CELL DISTRIBUTION WIDTH 12.6 % (11.5-14.5); WHITE BLOOD COUNT 12.4 X10'3 (4.5-11.0)
[2019-06-13 07:27] LABS: CLARITY,URINE CLEAR (Clear); COLOR,URINE STRAW (Yellow); GLUCOSE, URINE NEGATIVE (Neg); KETONES,URINE NEGATIVE (Neg); LEUKOCYTE ESTERASE ,URINE NEGATIVE (Neg); NITRITES, URINE NEGATIVE (Neg); OCCULT BLOOD,URINE MODERATE (Neg); PH,URINE 5.5 (4.8-8.0); PROTEIN,URINE NEGATIVE (Neg); UA COLLECTION TYPE STRAIGHT CATH; UROBILINOGEN,URINE 0.2 E.U/dL (0.2-1.0)
[2019-06-13 07:33] LABS: BACTERIA,URINE 1+ /HPF (Neg); HYALINE CASTS 0-3 /LPF (NEGATIVE); RBC,URINE 0-2 /HPF (0-2); SQUAMOUS EPITHELIAL CELL,UR FEW /LPF (FEW); WBC,URINE 0-4 /HPF (0-4)
[2019-06-13 07:45] LABS: URINE AMPHETAMINE SCREEN NEGATIVE (Neg); URINE BARBITUATE SCREEN NEGATIVE (Neg); URINE BENZODIAZEPINES SCREEN NEGATIVE (Neg); URINE CANNABINOID SCREEN NEGATIVE (Neg); URINE COCAINE SCREEN NEGATIVE (Neg); URINE METHADONE SCREEN NEGATIVE (Neg); URINE OPIATE SCREEN NEGATIVE (Neg); URINE PHENCYCLIDINE SCREEN NEGATIVE (Neg)
[2019-06-13 07:46] LABS: ALANINE AMINOTRANSFERASE 80 U/L (12-78); ALBUMIN/GLOBULIN RATIO 1.1 (1.1-1.5); ALKALINE PHOSPHATASE 107 IU/L (46-116); ANION GAP 14 (8-16); ASPARTATE AMINO TRANSFERASE 161 U/L (10-37); BILIRUBIN,TOTAL 0.3 MG/DL (0.1-1.0); BLOOD UREA NITROGEN 95 MG/DL (7-18); BUN/CREATININE RATIO 30.7 (6.6-38.0); CALCIUM 8.5 MG/DL (8.5-10.1); CHLORIDE 95 MMOL/L (99-107); CREATININE 3.09 MG/DL (0.40-0.90); ETHANOL < 0.010 GM/DL (0.0-0.010); GLUCOSE 68 MG/DL (70-104); POTASSIUM 4.8 MMOL/L (3.5-5.1); SODIUM 130 MMOL/L (135-145); TOTAL CARBON DIOXIDE 20.9 MMOL/L (24-32); TOTAL PROTEIN 7.7 G/DL (6.4-8.2); eGFR 15 ML/MIN
--- NOTE | 2019-06-13 08:05 | NUR ---
PT MOVED FROM BED 10 TO BED 22 BY ESTHER TOTO, PT AMBULATORY FOR TRANSFER OF ROOMS.
[2019-06-13] MEDS ORDERED: propranolol 10mg tablet PO PRN (08:40)
[2019-06-13] MEDS ORDERED: ibuprofen tablet 400 MG TABLET PO PRN (08:45)
--- NOTE | 2019-06-13 08:48 | NUR ---
Recieved reoprt and assumed care of patient. Patient calm, compliant, independent with ADL's. Labs reviewed na+ 130, low albumin and Hgb, Hct. potenitally dehydrated and malnurished. Patient understands purpose for admission and hold.
[2019-06-13] MEDS: hydrOXYzine 25 MG tablet PO PRN ×2 (09:01→17:16)
[2019-06-13] MEDS: gabapentin 300mg capsule PO SCH ×3 (09:02→20:34)
[2019-06-13] MEDS ORDERED: normal saline 1000ml 1,000 ML IV ONE (09:53)
[2019-06-13] MEDS ORDERED: normal saline 1000ML IV soln IVB ONE (09:55)
--- NOTE | 2019-06-13 10:04 | NUR ---
primary nurse Agnes RN is at [facility] with patient and Vidya (tech) helping nurse put a wellington in patient patient is also getting an IV put in
[2019-06-13] MEDS: normal saline 1000ml 1,000 ML IV SCH ×2 (10:31→22:18)
--- NOTE | 2019-06-13 10:34 | NUR ---
Notified physician of abnormal labs, received orders for FC IV and fluid replacement. Patient compliant with placement of both. X-Ray obtained. Continues to respond to internal stimuli, but remains calm. Plan to admit to medical floor
[2019-06-13] MEDS ORDERED: magnesium 2GM in 50ml NS 50 ML IV PRN (10:35)
[2019-06-13] MEDS ORDERED: ondansetron/PF 4mg/2ml inj IV PRN (10:35)
[2019-06-13] MEDS ORDERED: magnesium 4gm in 100ml NS 100 ML IV PRN (10:35)
[2019-06-13] MEDS ORDERED: potassium Cl 20 mEq SR tablet PO PRN ×2 (10:35)
[2019-06-13] MEDS ORDERED: potassium CL 10mEq/100ml bag 100 ML IV PRN ×2 (10:35)
[2019-06-13] MEDS ORDERED: acetaminophen 325mg tablet PO PRN (10:35)
[2019-06-13] MEDS ORDERED: magnesium Cl slow-release 64mg tablet PO PRN (10:35)
--- NOTE | 2019-06-13 10:58 | NUR ---
Evaluated by Dr. Coombs.
[2019-06-13] MEDS: ipratropium/albuterol 3ml nebule NEB SCH ×2 (11:00→20:06)
[2019-06-13] MEDS: budesonide 0.5mg/2ml UD nebule IH SCH ×2 (11:00→20:07)
--- NOTE | 2019-06-13 11:51 | NUR ---
Report called to electroplating technician unit. Patient transported via WC accompained by TECH. continues to respond to internal stimuli, stating the voices are threatening to harm her. FC and IV intact.
--- NOTE | 2019-06-13 12:00 | NUR ---
received report on this patient
--- NOTE | 2019-06-13 12:22 | NUR ---
awaiting discharge orders
--- NOTE | 2019-06-13 12:55 | NUR ---
patient in room 4024A , oriented to unit, sitter at the bedside, went to check on patient she is now sleeping
[2019-06-13 13:26] LABS: ALBUMIN 3.3 G/DL (3.4-5.0); ANION GAP 13 (8-16); BLOOD UREA NITROGEN 87 MG/DL (7-18); BUN/CREATININE RATIO 34.7 (6.6-38.0); CALCIUM 7.7 MG/DL (8.5-10.1); CHLORIDE 101 MMOL/L (99-107); CREATININE 2.51 MG/DL (0.40-0.90); GLUCOSE 85 MG/DL (70-104); POTASSIUM 4.5 MMOL/L (3.5-5.1); SODIUM 132 MMOL/L (135-145); TOTAL CARBON DIOXIDE 18.5 MMOL/L (24-32); eGFR 19 ML/MIN
[2019-06-13] MEDS ORDERED: cephalexin 250mg capsule PO SCH (14:00)
[2019-06-13] MEDS: nicotine 21mg patch - 24 hr TD SCH (15:59)
[2019-06-13] MEDS: cephalexin 500mg capsule PO SCH ×2 (17:13→20:34)
[2019-06-13 18:00] VITALS: BP 100/36
--- NOTE | 2019-06-13 18:15 | NUR ---
Patient in room ORTHO 4024. I have received report from HORACE Cabrera and had the opportunity to ask questions and assume patient care.
--- NOTE | 2019-06-13 18:20 | NUR ---
report given to ray VU
--- NOTE | 2019-06-13 18:30 | NUR ---
Patient in room ORTHO 4024. I have received report from HORACE Cabrera and had the opportunity to ask questions and assume patient care.
[2019-06-13] MEDS: K and/or MAG REPLACEMENT MC SCH (20:00)
[2019-06-13] MEDS: heparin, porcine 5000 units/ml vial SQ SCH (20:34)
[2019-06-13] MEDS ORDERED: QUETIAPINE 200 MG TAB.SR.24H PO SCH (21:00)
[2019-06-13 22:00] VITALS: BP 99/42
[2019-06-14] VITALS (7 sets, daily range): BP systolic 88–126; BP diastolic 35–70
[2019-06-14] MEDS: cephalexin 500mg capsule PO SCH ×4 (02:07→20:16)
[2019-06-14 06:23] LABS: BASOPHILS % (AUTO) 0.2 % (0-1); EOSINOPHILS # (AUTO) 0.1 X10'3 (0-0.9); EOSINOPHILS % (AUTO) 1.3 % (0-6); HEMATOCRIT 26.5 % (35.0-45.0); HEMOGLOBIN 9.2 g/dl (12.0-16.0); LYMPHOCYTES # (AUTO) 2.1 X10'3 (1.1-4.8); LYMPHOCYTES % (AUTO) 26.6 % (21-51); MEAN CORPUSCULAR HEMOGLOBIN 30.7 PG (27.0-31.0); MEAN CORPUSCULAR HGB CONC 34.7 g/dL (33.0-36.5); MEAN CORPUSCULAR VOLUME 88.5 FL (78-98); MEAN PLATELET VOLUME 8.4 FL (7.4-10.4); MONOCYTES # (AUTO) 0.6 X10'3 (0-0.9); MONOCYTES % (AUTO) 7.4 % (2-12); NEUTROPHILS # (AUTO) 5.1 X10'3 (1.8-7.7); NEUTROPHILS % (AUTO) 64.5 % (42-75); PLATELET COUNT 285 X10'3 (140-440); RED CELL DISTRIBUTION WIDTH 12.6 % (11.5-14.5); WHITE BLOOD COUNT 7.9 X10'3 (4.5-11.0)
[2019-06-14 06:29] LABS: ALANINE AMINOTRANSFERASE 55 U/L (12-78); ALBUMIN 2.7 G/DL (3.4-5.0); ALBUMIN/GLOBULIN RATIO 0.9 (1.1-1.5); ALKALINE PHOSPHATASE 76 IU/L (46-116); ANION GAP 9 (8-16); ASPARTATE AMINO TRANSFERASE 78 U/L (10-37); BILIRUBIN,TOTAL 0.2 MG/DL (0.1-1.0); BLOOD UREA NITROGEN 60 MG/DL (7-18); BUN/CREATININE RATIO 35.5 (6.6-38.0); CALCIUM 7.6 MG/DL (8.5-10.1); CHLORIDE 113 MMOL/L (99-107); CREATININE 1.69 MG/DL (0.40-0.90); GLUCOSE 111 MG/DL (70-104); MAGNESIUM 1.9 MG/DL (1.5-2.4); POTASSIUM 4.5 MMOL/L (3.5-5.1); SODIUM 143 MMOL/L (135-145); TOTAL CARBON DIOXIDE 20.6 MMOL/L (24-32); TOTAL PROTEIN 5.8 G/DL (6.4-8.2); eGFR 31 ML/MIN
--- NOTE | 2019-06-14 06:45 | NUR ---
Problems reprioritized. Patient report given, questions answered & plan of care reviewed with HORACE Forrest.
[2019-06-14] MEDS: K and/or MAG REPLACEMENT MC SCH ×2 (08:00→20:00)
[2019-06-14] MEDS: budesonide 0.5mg/2ml UD nebule IH SCH ×2 (08:00→20:03)
[2019-06-14] MEDS: ipratropium/albuterol 3ml nebule NEB SCH ×3 (08:01→20:03)
[2019-06-14] MEDS: normal saline 1000ml 1,000 ML IV SCH ×3 (09:22→15:32)
[2019-06-14] MEDS: gabapentin 300mg capsule PO SCH ×3 (09:22→20:17)
[2019-06-14] MEDS: nicotine 21mg patch - 24 hr TD SCH (09:28)
[2019-06-14] MEDS: heparin, porcine 5000 units/ml vial SQ SCH ×2 (09:29→20:16)
[2019-06-14] MEDS: hydrOXYzine 25 MG tablet PO PRN (14:20)
[2019-06-14] MEDS: phenazopyridine 100mg tablet PO SCH ×2 (14:21→17:49)
--- NOTE | 2019-06-14 14:37 | NUR ---
FC removed. Pt tolerated well
--- NOTE | 2019-06-14 16:04 | NUR ---
PAGER ID: [phone] MESSAGE: Adraine [id number] Bethany Velásquez in [id number]- a) reporting pain in feet (swollen) and not her back. b) no culture was indicated w UA so they never did one.
[2019-06-14] MEDS ORDERED: nicotine 21mg patch - 24 hr TD ONE (16:10)
--- NOTE | 2019-06-14 17:17 | NUR ---
PAGER ID: [phone] MESSAGE: Adriane [phone] re Bethany Combs in [id number]- Uric acid is elevated 7.7. Still want foot xray? Still requesting pain med for foot. Lidocaine patch is for her back, not foot, right?
[2019-06-14] MEDS ORDERED: methylPREDNISolone sod succ 125mg/2ml vial IV ONE (17:25)
[2019-06-14 17:30] LABS: CLARITY,URINE CLEAR (Clear); COLOR,URINE YELLOW (Yellow); GLUCOSE, URINE NEGATIVE (Neg); KETONES,URINE NEGATIVE (Neg); LEUKOCYTE ESTERASE ,URINE NEGATIVE (Neg); NITRITES, URINE NEGATIVE (Neg); OCCULT BLOOD,URINE MODERATE (Neg); PROTEIN,URINE NEGATIVE (Neg); UROBILINOGEN,URINE 0.2 E.U/dL (0.2-1.0)
[2019-06-14 17:31] LABS: UA COLLECTION TYPE CLN CATCH MIDSTREAM
[2019-06-14 17:40] LABS: SQUAMOUS EPITHELIAL CELL,UR FEW /LPF (FEW)
[2019-06-14 17:41] LABS: BACTERIA,URINE FEW /HPF (Neg); WBC,URINE 0-4 /HPF (0-4)
[2019-06-14] MEDS: QUETIAPINE 200 MG TAB.SR.24H PO SCH (20:16)
[2019-06-15] MEDS: normal saline 1000ml 1,000 ML IV SCH ×2 (01:13→12:35)
[2019-06-15] MEDS: cephalexin 500mg capsule PO SCH ×4 (02:11→20:43)
[2019-06-15 06:00] VITALS: BP 96/39
[2019-06-15 06:29] LABS: BASOPHILS % (AUTO) 0.1 % (0-1); EOSINOPHILS % (AUTO) 0 % (0-6); HEMATOCRIT 25.7 % (35.0-45.0); LYMPHOCYTES # (AUTO) 0.5 X10'3 (1.1-4.8); LYMPHOCYTES % (AUTO) 11.8 % (21-51); MEAN CORPUSCULAR HGB CONC 35.1 g/dL (33.0-36.5); MEAN CORPUSCULAR VOLUME 88.5 FL (78-98); MEAN PLATELET VOLUME 8.1 FL (7.4-10.4); NEUTROPHILS % (AUTO) 87.1 % (42-75); PLATELET COUNT 250 X10'3 (140-440); RED BLOOD COUNT 2.91 X10'6 (4.20-5.60); RED CELL DISTRIBUTION WIDTH 12.7 % (11.5-14.5); WHITE BLOOD COUNT 4.6 X10'3 (4.5-11.0)
--- NOTE | 2019-06-15 06:31 | NUR ---
Problems reprioritized. Patient report given, questions answered & plan of care reviewed with HORACE Forrest.
[2019-06-15 06:46] LABS: ALANINE AMINOTRANSFERASE 51 U/L (12-78); ALBUMIN 2.8 G/DL (3.4-5.0); ALBUMIN/GLOBULIN RATIO 0.9 (1.1-1.5); ALKALINE PHOSPHATASE 70 IU/L (46-116); ANION GAP 7 (8-16); ASPARTATE AMINO TRANSFERASE 53 U/L (10-37); BILIRUBIN,TOTAL 0.2 MG/DL (0.1-1.0); BLOOD UREA NITROGEN 30 MG/DL (7-18); CALCIUM 7.8 MG/DL (8.5-10.1); CHLORIDE 113 MMOL/L (99-107); CREATININE 1.25 MG/DL (0.40-0.90); GLUCOSE 164 MG/DL (70-104); MAGNESIUM 1.7 MG/DL (1.5-2.4); POTASSIUM 4.9 MMOL/L (3.5-5.1); SODIUM 144 MMOL/L (135-145); TOTAL CARBON DIOXIDE 23.7 MMOL/L (24-32); TOTAL PROTEIN 5.9 G/DL (6.4-8.2); eGFR 44 ML/MIN
[2019-06-15] MEDS: K and/or MAG REPLACEMENT MC SCH ×2 (08:00→20:00)
[2019-06-15] MEDS: phenazopyridine 100mg tablet PO SCH ×3 (08:24→17:30)
[2019-06-15] MEDS: gabapentin 300mg capsule PO SCH ×3 (08:24→20:43)
[2019-06-15] MEDS: heparin, porcine 5000 units/ml vial SQ SCH ×2 (08:24→20:43)
[2019-06-15] MEDS: LIDOcaine 5% patch TP SCH (08:25)
[2019-06-15] MEDS: nicotine 21mg patch - 24 hr TD SCH (08:25)
[2019-06-15] MEDS: ipratropium/albuterol 3ml nebule NEB SCH ×3 (08:38→20:23)
[2019-06-15] MEDS: budesonide 0.5mg/2ml UD nebule IH SCH ×2 (08:38→20:23)
[2019-06-15] MEDS: hydrOXYzine 25 MG tablet PO PRN (15:56)
[2019-06-15] MEDS: predniSONE 20 mg tablet PO SCH (17:30)
[2019-06-15] MEDS: HYDROcodone/acetaminophen 5mg/325mg tablet PO PRN ×2 (17:30→21:54)
[2019-06-15 18:00] VITALS: BP 124/61
--- NOTE | 2019-06-15 18:30 | NUR ---
Patient in room ORTHO 4024. I have received report from HORACE Forrest and had the opportunity to ask questions and assume patient care.
[2019-06-15] MEDS: QUETIAPINE 200 MG TAB.SR.24H PO SCH (20:44)
[2019-06-15 22:00] VITALS: BP 131/65
[2019-06-16] MEDS: cephalexin 500mg capsule PO SCH ×4 (02:07→20:24)
--- NOTE | 2019-06-16 06:30 | NUR ---
Patient in room ORTHO 4024. I have received report from Aliyah VU and had the opportunity to ask questions and assume patient care.
[2019-06-16 06:31] LABS: BASOPHILS % (AUTO) 0.1 % (0-1); EOSINOPHILS % (AUTO) 0 % (0-6); HEMATOCRIT 23.8 % (35.0-45.0); HEMOGLOBIN 8.1 g/dl (12.0-16.0); LYMPHOCYTES # (AUTO) 0.9 X10'3 (1.1-4.8); LYMPHOCYTES % (AUTO) 10.9 % (21-51); MEAN CORPUSCULAR HEMOGLOBIN 30.5 PG (27.0-31.0); MEAN CORPUSCULAR HGB CONC 33.9 g/dL (33.0-36.5); MEAN CORPUSCULAR VOLUME 90.1 FL (78-98); MEAN PLATELET VOLUME 8.2 FL (7.4-10.4); MONOCYTES # (AUTO) 0.2 X10'3 (0-0.9); NEUTROPHILS # (AUTO) 7.1 X10'3 (1.8-7.7); PLATELET COUNT 237 X10'3 (140-440); RED BLOOD COUNT 2.64 X10'6 (4.20-5.60); RED CELL DISTRIBUTION WIDTH 12.8 % (11.5-14.5); WHITE BLOOD COUNT 8.3 X10'3 (4.5-11.0)
[2019-06-16 06:45] LABS: ALANINE AMINOTRANSFERASE 44 U/L (12-78); ALBUMIN 2.9 G/DL (3.4-5.0); ALKALINE PHOSPHATASE 64 IU/L (46-116); ANION GAP 7 (8-16); ASPARTATE AMINO TRANSFERASE 33 U/L (10-37); BILIRUBIN,TOTAL 0.2 MG/DL (0.1-1.0); BLOOD UREA NITROGEN 21 MG/DL (7-18); BUN/CREATININE RATIO 19.8 (6.6-38.0); CHLORIDE 111 MMOL/L (99-107); CREATININE 1.06 MG/DL (0.40-0.90); GLUCOSE 143 MG/DL (70-104); MAGNESIUM 1.7 MG/DL (1.5-2.4); SODIUM 142 MMOL/L (135-145); TOTAL PROTEIN 5.9 G/DL (6.4-8.2); eGFR 53 ML/MIN
--- NOTE | 2019-06-16 06:53 | NUR ---
Problems reprioritized. Patient report given, questions answered & plan of care reviewed with HORACE Blandon.
[2019-06-16 07:00] VITALS: BP 131/46
[2019-06-16] MEDS: LIDOcaine 5% patch TP SCH (08:00)
[2019-06-16] MEDS: phenazopyridine 100mg tablet PO SCH ×3 (08:40→20:24)
[2019-06-16] MEDS: gabapentin 300mg capsule PO SCH ×3 (08:40→20:33)
[2019-06-16] MEDS: heparin, porcine 5000 units/ml vial SQ SCH ×2 (08:40→20:24)
[2019-06-16] MEDS: nicotine 21mg patch - 24 hr TD SCH (08:41)
[2019-06-16] MEDS: predniSONE 20 mg tablet PO SCH (08:41)
[2019-06-16] MEDS: K and/or MAG REPLACEMENT MC SCH ×2 (08:43→20:00)
[2019-06-16] MEDS: HYDROcodone/acetaminophen 5mg/325mg tablet PO PRN ×3 (09:01→20:50)
[2019-06-16] MEDS: budesonide 0.5mg/2ml UD nebule IH SCH ×2 (09:47→21:17)
[2019-06-16] MEDS: ipratropium/albuterol 3ml nebule NEB SCH ×3 (09:49→21:17)
[2019-06-16 18:00] VITALS: BP 132/71
--- NOTE | 2019-06-16 18:30 | NUR ---
Problems reprioritized. Patient report given, questions answered & plan of care reviewed with Annmarie VU.
[2019-06-16] MEDS ORDERED: heparin, porcine 5000 units/ml vial SQ SCH (20:00)
[2019-06-16] MEDS: QUETIAPINE 200 MG TAB.SR.24H PO SCH (20:23)
[2019-06-16 22:00] VITALS: BP 113/52
[2019-06-17] MEDS: cephalexin 500mg capsule PO SCH ×4 (02:19→20:12)
[2019-06-17 06:00] VITALS: BP 127/74
[2019-06-17 06:20] LABS: BASOPHILS % (AUTO) 0 % (0-1); EOSINOPHILS % (AUTO) 0.1 % (0-6); HEMATOCRIT 24.3 % (35.0-45.0); HEMOGLOBIN 8.3 g/dl (12.0-16.0); LYMPHOCYTES # (AUTO) 1.9 X10'3 (1.1-4.8); LYMPHOCYTES % (AUTO) 18.8 % (21-51); MEAN CORPUSCULAR HGB CONC 34.2 g/dL (33.0-36.5); MEAN CORPUSCULAR VOLUME 90.6 FL (78-98); MEAN PLATELET VOLUME 7.9 FL (7.4-10.4); MONOCYTES # (AUTO) 0.5 X10'3 (0-0.9); MONOCYTES % (AUTO) 4.6 % (2-12); NEUTROPHILS # (AUTO) 7.8 X10'3 (1.8-7.7); NEUTROPHILS % (AUTO) 76.5 % (42-75); PLATELET COUNT 245 X10'3 (140-440); RED BLOOD COUNT 2.68 X10'6 (4.20-5.60); RED CELL DISTRIBUTION WIDTH 12.9 % (11.5-14.5); WHITE BLOOD COUNT 10.2 X10'3 (4.5-11.0)
[2019-06-17 06:24] LABS: ALANINE AMINOTRANSFERASE 49 U/L (12-78); ALBUMIN 2.9 G/DL (3.4-5.0); ALBUMIN/GLOBULIN RATIO 0.9 (1.1-1.5); ALKALINE PHOSPHATASE 66 IU/L (46-116); ANION GAP 5 (8-16); ASPARTATE AMINO TRANSFERASE 28 U/L (10-37); BILIRUBIN,TOTAL 0.2 MG/DL (0.1-1.0); BLOOD UREA NITROGEN 22 MG/DL (7-18); BUN/CREATININE RATIO 18.3 (6.6-38.0); CALCIUM 8.6 MG/DL (8.5-10.1); CHLORIDE 109 MMOL/L (99-107); GLUCOSE 136 MG/DL (70-104); MAGNESIUM 1.7 MG/DL (1.5-2.4); POTASSIUM 4.4 MMOL/L (3.5-5.1); SODIUM 142 MMOL/L (135-145); TOTAL CARBON DIOXIDE 28.4 MMOL/L (24-32); eGFR 46 ML/MIN
--- NOTE | 2019-06-17 06:45 | NUR ---
Patient in room ORTHO 4021. I have received report from Tirso VU and had the opportunity to ask questions and assume patient care.
[2019-06-17] MEDS: K and/or MAG REPLACEMENT MC SCH ×2 (07:40→20:00)
[2019-06-17] MEDS: budesonide 0.5mg/2ml UD nebule IH SCH ×2 (07:43→20:05)
[2019-06-17] MEDS: ipratropium/albuterol 3ml nebule NEB SCH ×3 (07:43→20:05)
[2019-06-17] MEDS: LIDOcaine 5% patch TP SCH (08:00)
[2019-06-17] MEDS: gabapentin 300mg capsule PO SCH ×3 (09:35→20:11)
[2019-06-17] MEDS: docusate sod 100mg capsule PO PRN (09:35)
[2019-06-17] MEDS: predniSONE 20 mg tablet PO SCH (09:35)
[2019-06-17] MEDS: hydrOXYzine 25 MG tablet PO PRN (09:35)
[2019-06-17] MEDS: aspirin 81mg tablet.DR PO SCH (09:35)
[2019-06-17] MEDS: phenazopyridine 100mg tablet PO SCH ×3 (09:35→20:13)
[2019-06-17] MEDS: heparin, porcine 5000 units/ml vial SQ SCH ×2 (09:37→20:16)
[2019-06-17] MEDS: nicotine 21mg patch - 24 hr TD SCH (09:39)
[2019-06-17] MEDS: HYDROcodone/acetaminophen 5mg/325mg tablet PO PRN ×3 (09:44→20:15)
[2019-06-17 10:00] VITALS: BP 113/63
--- NOTE | 2019-06-17 10:09 | NUR ---
Spoke with Tanya ALVES, patient needs a current progress note and to be medically cleared for her to get a referral packet ready.
--- NOTE | 2019-06-17 13:30 | NUR ---
Initial: Pt admit w/ chest pain hx COPD. DX SI w/ auditory hallucination in ER on admit, COPD, acute renal failure per MD note. PO 100% avg renal diet meeting needs. LBM 06/15. No nutrition concerns at this time. Will continue to monitor. Rec: 1. continue renal diet 2. bowel care as needed 3. wt per rx Addendum: 06/17/19 at [address] Amended: Links added.
--- NOTE | 2019-06-17 16:00 | NUR ---
Sima from [facility], called inquiring what room the patient is in.
--- NOTE | 2019-06-17 16:49 | NUR ---
[facility] here to evaluate patient.
[2019-06-17 18:00] VITALS: BP 150/79
--- NOTE | 2019-06-17 18:25 | NUR ---
Problems reprioritized. Patient report given, questions answered & plan of care reviewed with Tala VU.
--- NOTE | 2019-06-17 18:38 | NUR ---
Patient in room ORTHO 4021. I have received report from HORACE Bo and had the opportunity to ask questions and assume patient care.
[2019-06-17] MEDS: QUETIAPINE 200 MG TAB.SR.24H PO SCH (20:12)
[2019-06-17 22:00] VITALS: BP 129/78
[2019-06-18] MEDS: HYDROcodone/acetaminophen 5mg/325mg tablet PO PRN ×4 (02:13→19:21)
[2019-06-18] MEDS: cephalexin 500mg capsule PO SCH ×4 (02:13→19:20)
[2019-06-18 06:00] VITALS: BP 138/80
--- NOTE | 2019-06-18 06:21 | NUR ---
Problems reprioritized. Patient report given, questions answered & plan of care reviewed with HORACE Damon.
[2019-06-18] MEDS: LIDOcaine 5% patch TP SCH (08:00)
[2019-06-18] MEDS: aspirin 81mg tablet.DR PO SCH (08:06)
[2019-06-18] MEDS: phenazopyridine 100mg tablet PO SCH ×3 (08:06→17:21)
[2019-06-18] MEDS: predniSONE 20 mg tablet PO SCH (08:07)
[2019-06-18] MEDS: heparin, porcine 5000 units/ml vial SQ SCH ×2 (08:07→19:22)
[2019-06-18] MEDS: gabapentin 300mg capsule PO SCH ×3 (08:07→20:21)
[2019-06-18] MEDS: nicotine 21mg patch - 24 hr TD SCH (08:08)
[2019-06-18] MEDS: K and/or MAG REPLACEMENT MC SCH ×2 (08:20→20:00)
[2019-06-18] MEDS: ipratropium/albuterol 3ml nebule NEB SCH ×3 (09:35→20:06)
[2019-06-18] MEDS: budesonide 0.5mg/2ml UD nebule IH SCH ×2 (09:36→20:07)
[2019-06-18 10:00] VITALS: BP 145/76
[2019-06-18] MEDS: hydrOXYzine 25 MG tablet PO PRN (14:03)
[2019-06-18] MEDS: docusate sod 100mg capsule PO PRN (14:07)
[2019-06-18] MEDS: calcium carbonate/vitamin D3 tablet PO SCH (17:21)
[2019-06-18 18:00] VITALS: BP 147/87
--- NOTE | 2019-06-18 18:13 | NUR ---
Problems reprioritized. Patient report given, questions answered & plan of care reviewed with Marine VU.
--- NOTE | 2019-06-18 18:23 | NUR ---
Patient in room ORTHO 4021. I have received report from Giuliana VU and had the opportunity to ask questions and assume patient care. Addendum: 06/18/19 at 2349 by Marine Jang RN I have received report from Marisol VU
[2019-06-18] MEDS: QUETIAPINE 200 MG TAB.SR.24H PO SCH (20:21)
[2019-06-18 22:00] VITALS: BP 114/55
[2019-06-19] MEDS: cephalexin 500mg capsule PO SCH ×2 (01:20→07:38)
[2019-06-19] MEDS: HYDROcodone/acetaminophen 5mg/325mg tablet PO PRN ×4 (01:23→16:01)
[2019-06-19 06:00] VITALS: BP 140/73
--- NOTE | 2019-06-19 06:05 | NUR ---
Problems reprioritized. Patient report given, questions answered & plan of care reviewed with Marisol VU.
[2019-06-19] MEDS: calcium carbonate/vitamin D3 tablet PO SCH ×3 (07:38→18:19)
[2019-06-19] MEDS: gabapentin 300mg capsule PO SCH ×3 (07:38→20:10)
[2019-06-19] MEDS: aspirin 81mg tablet.DR PO SCH (07:38)
[2019-06-19] MEDS: nicotine 21mg patch - 24 hr TD SCH ×2 (07:38→09:48)
[2019-06-19] MEDS: predniSONE 20 mg tablet PO SCH (07:38)
[2019-06-19] MEDS: phenazopyridine 100mg tablet PO SCH ×3 (07:41→18:19)
[2019-06-19] MEDS: heparin, porcine 5000 units/ml vial SQ SCH ×2 (07:46→20:00)
[2019-06-19] MEDS: LIDOcaine 5% patch TP SCH (07:46)
[2019-06-19] MEDS: K and/or MAG REPLACEMENT MC SCH ×2 (07:46→20:00)
[2019-06-19] MEDS: budesonide 0.5mg/2ml UD nebule IH SCH ×2 (07:57→20:19)
[2019-06-19] MEDS: ipratropium/albuterol 3ml nebule NEB SCH ×3 (07:57→20:19)
[2019-06-19] MEDS: hydrOXYzine 25 MG tablet PO PRN (09:49)
[2019-06-19 10:00] VITALS: BP 133/83
[2019-06-19] MEDS ORDERED: baclofen 10mg tablet PO PRN (11:35)
[2019-06-19] MEDS: docusate sod 100mg capsule PO PRN ×2 (11:39→23:24)
[2019-06-19] MEDS ORDERED: baclofen 10mg tablet PO SCH (13:00)
[2019-06-19 14:42] LABS: BASOPHILS % (AUTO) 0.1 % (0-1); EOSINOPHILS % (AUTO) 0.1 % (0-6); LYMPHOCYTES # (AUTO) 0.8 X10'3 (1.1-4.8); LYMPHOCYTES % (AUTO) 6.2 % (21-51); MEAN CORPUSCULAR HEMOGLOBIN 30.3 PG (27.0-31.0); MEAN CORPUSCULAR HGB CONC 33.4 g/dL (33.0-36.5); MEAN CORPUSCULAR VOLUME 90.8 FL (78-98); MEAN PLATELET VOLUME 8.2 FL (7.4-10.4); MONOCYTES # (AUTO) 0.2 X10'3 (0-0.9); MONOCYTES % (AUTO) 1.5 % (2-12); NEUTROPHILS # (AUTO) 12.1 X10'3 (1.8-7.7); NEUTROPHILS % (AUTO) 92.1 % (42-75); PLATELET COUNT 302 X10'3 (140-440); RED BLOOD COUNT 3.31 X10'6 (4.20-5.60); RED CELL DISTRIBUTION WIDTH 13.3 % (11.5-14.5); WHITE BLOOD COUNT 13.2 X10'3 (4.5-11.0)
[2019-06-19 14:57] LABS: ALANINE AMINOTRANSFERASE 39 U/L (12-78); ALBUMIN 3.5 G/DL (3.4-5.0); ALKALINE PHOSPHATASE 74 IU/L (46-116); ANION GAP 9 (8-16); ASPARTATE AMINO TRANSFERASE 18 U/L (10-37); BILIRUBIN,TOTAL 0.2 MG/DL (0.1-1.0); BLOOD UREA NITROGEN 32 MG/DL (7-18); BUN/CREATININE RATIO 22.4 (6.6-38.0); CHLORIDE 100 MMOL/L (99-107); CREATININE 1.43 MG/DL (0.40-0.90); GLUCOSE 194 MG/DL (70-104); POTASSIUM 4.7 MMOL/L (3.5-5.1); SODIUM 138 MMOL/L (135-145); TOTAL CARBON DIOXIDE 28.8 MMOL/L (24-32); TOTAL PROTEIN 7.1 G/DL (6.4-8.2); eGFR 37 ML/MIN
--- NOTE | 2019-06-19 15:52 | NUR ---
Dr. Pritchard is discharing patient, she is medically cleared. Patient has 5150 written on 06/17/19. She now needs to be transferred to Mental Health Overflow in ED or to Behavior Health. Charge Nurse Fransisca spoke to Nursing [employer] regarding getting the patient transferred and she told us it can't happen today, we will have to do it tomorrow when the accepting mental health MD is on Behavioral Health unit.
[2019-06-19 17:00] VITALS: BP 161/66
[2019-06-19] MEDS ORDERED: nitrofuran/nitrofuran macrocrysal 100 MG capsule PO SCH (17:30)
--- NOTE | 2019-06-19 18:00 | NUR ---
Patient in room ORTHO 4021. I have received report from Marisol VU and had the opportunity to ask questions and assume patient care.
--- NOTE | 2019-06-19 18:16 | NUR ---
Problems reprioritized. Patient report given, questions answered & plan of care reviewed with Marine VU.
[2019-06-19] MEDS: QUETIAPINE 200 MG TAB.SR.24H PO SCH (20:10)
[2019-06-19 22:00] VITALS: BP 128/55
[2019-06-19] MEDS: baclofen 10mg tablet PO PRN (23:24)
[2019-06-20] MEDS: HYDROcodone/acetaminophen 5mg/325mg tablet PO PRN ×3 (02:57→15:39)
[2019-06-20 05:00] VITALS: BP 133/74
--- NOTE | 2019-06-20 06:17 | NUR ---
Problems reprioritized. Patient report given, questions answered & plan of care reviewed with Giuliana Servin.
[2019-06-20] MEDS: aspirin 81mg tablet.DR PO SCH (07:44)
[2019-06-20] MEDS: calcium carbonate/vitamin D3 tablet PO SCH ×2 (07:45→11:44)
[2019-06-20] MEDS: phenazopyridine 100mg tablet PO SCH ×2 (07:45→12:05)
[2019-06-20] MEDS: gabapentin 300mg capsule PO SCH ×2 (07:45→12:05)
[2019-06-20] MEDS: heparin, porcine 5000 units/ml vial SQ SCH (07:46)
[2019-06-20] MEDS: ipratropium/albuterol 3ml nebule NEB SCH ×2 (07:57→14:52)
[2019-06-20] MEDS: budesonide 0.5mg/2ml UD nebule IH SCH (07:57)
[2019-06-20] MEDS: K and/or MAG REPLACEMENT MC SCH (08:00)
[2019-06-20] MEDS: LIDOcaine 5% patch TP SCH (09:25)
[2019-06-20] MEDS: baclofen 10mg tablet PO PRN (11:44)
[2019-06-20] MEDS: hydrOXYzine 25 MG tablet PO PRN (12:40)
[2019-06-20] MEDS ORDERED: ACET-2119 PO (13:51)
[2019-06-20] MEDS ORDERED: BAC10T PO (13:51)
[2019-06-20] MEDS ORDERED: NICO-687 TD (13:51)
--- NOTE | 2019-06-20 15:52 | NUR ---
PT WAS SAFELY DC'D TO BEHAVIOR HEALTH WITH ALL BELONGINGS.
== END 2019-06-20 15:40 | DRG 422 ==
LOC: ER 05:58 → ED HOLD 10:31 → ORTHO 4S 12:37
PROVIDERS: ADMIT Family Medicine; ATTEND Internal Medicine
DX: E86.0 Dehydration (principal); N17.9 Acute kidney failure, unspecified; R45.851 Suicidal ideations; F31.5 Bipolar disorder, current episode depressed, severe, with psychotic features; G89.29 Other chronic pain; R14.0 Abdominal distension (gaseous); N39.0 Urinary tract infection, site not specified; R74.0 Nonspecific elevation of levels of transaminase and lactic acid dehydrogenase [LDH]; F17.210 Nicotine dependence, cigarettes, uncomplicated; F41.0 Panic disorder [episodic paroxysmal anxiety]; J44.9 Chronic obstructive pulmonary disease, unspecified; M10.9 Gout, unspecified; Z87.440 Personal history of urinary (tract) infections; Z79.899 Other long term (current) drug therapy; Z71.6 Tobacco abuse counseling
CPT/HCPCS: 36415; 71045; 80048; 80053; 80305; 80320; 81001; 83735; 84443; 84550; 85025; 87081; 87088; 90654; 93005; 94640; 94760; 96360; 99285; G0378; J1644; J2930; J7030; J7512; J7626; Z7610

== ENCOUNTER 2019-06-27 18:52 | Emergency (ER) | payer MEDICAID ==
[~2019-06-27] VITALS: Ht 165.1 cm; Wt 98.6 kg
[~2019-06-27 18:52] MED LIST changes: +ACET-2119 PO; +BAC10T PO; -BACL10TA PO; -ERYT1OIN6 LEFTEYE; -GABA-532 PO; +GABA300C PO; +HYDR-3686 PO; -IBUP-1986 PO; +LORA10TA65 PO; -LORA10TA7 PO; +NICO-687 TD; +PROP10TA10 PO; -QUET300T5 PO
[2019-06-27 19:07] VITALS: BP 141/65
[2019-06-27] MEDS ORDERED: ondansetron 4mg rapidly disintigrating tab PO ONE (20:20)
--- NOTE | 2019-06-27 20:42 | NUR ---
PT REPORTS UNABLE TO URINATE AT THIS TIME. PT IS DRINKING A CUP OF WATER AT THIS TIME.
--- NOTE | 2019-06-27 21:34 | NUR ---
pt has had 3 cups of water and still states she can't pee. She has been sleeping since arriving other than being awoke for exam and attempts to urinate. pt is refusing straight cath for urine sample.
[2019-06-27 21:45] LABS: CLARITY,URINE CLEAR (Clear); COLOR,URINE YELLOW (Yellow); GLUCOSE, URINE NEGATIVE (Neg); KETONES,URINE NEGATIVE (Neg); LEUKOCYTE ESTERASE ,URINE NEGATIVE (Neg); NITRITES, URINE NEGATIVE (Neg); OCCULT BLOOD,URINE TRACE-INTACT (Neg); PH,URINE 5.5 (4.8-8.0); PROTEIN,URINE NEGATIVE (Neg); UROBILINOGEN,URINE 0.2 E.U/dL (0.2-1.0)
[2019-06-27 21:46] LABS: UA COLLECTION TYPE NON-SPECIFIED
[2019-06-27 21:58] LABS: BACTERIA,URINE NONE SEEN /HPF (Neg); MUCUS STRANDS NONE SEEN /LPF (Neg); RBC,URINE 0-2 /HPF (0-2); SQUAMOUS EPITHELIAL CELL,UR NONE SEEN /LPF (FEW); WBC,URINE NONE SEEN /HPF (0-4)
[2019-06-27] MEDS ORDERED: ONDA4TAB6 PO (22:04)
== END 2019-06-27 22:41 | disposition home or self-care (01) ==
LOC: ER 18:53
DX: R11.0 Nausea (principal); R50.9 Fever, unspecified; M79.606 Pain in leg, unspecified; J44.9 Chronic obstructive pulmonary disease, unspecified; G89.29 Other chronic pain; F41.9 Anxiety disorder, unspecified; F32.9 Major depressive disorder, single episode, unspecified; F20.9 Schizophrenia, unspecified; F15.90 Other stimulant use, unspecified, uncomplicated; Z59.0 Homelessness; Z98.890 Other specified postprocedural states; Z79.899 Other long term (current) drug therapy
CPT/HCPCS: 81001; 99283

== ENCOUNTER 2019-08-17 15:57 | Emergency (ER) | payer MEDICAID ==
[~2019-08-17] VITALS: Ht 165.1 cm; Wt 60.6 kg
[~2019-08-17 15:57] MED LIST changes: -ACET-2119 PO; +ONDA4TAB6 PO
[2019-08-17 16:06] VITALS: BP 121/50
[2019-08-17 16:28] LABS: CLARITY,URINE CLEAR (Clear); COLOR,URINE YELLOW (Yellow); GLUCOSE, URINE NEGATIVE (Neg); KETONES,URINE NEGATIVE (Neg); LEUKOCYTE ESTERASE ,URINE NEGATIVE (Neg); NITRITES, URINE NEGATIVE (Neg); OCCULT BLOOD,URINE NEGATIVE (Neg); PROTEIN,URINE NEGATIVE (Neg)
[2019-08-17 16:29] LABS: UA COLLECTION TYPE CLN CATCH MIDSTREAM
[2019-08-17] MEDS ORDERED: azithromycin 250mg tablet PO ONE (16:35)
[2019-08-17] MEDS ORDERED: CefTRIAXone 250MG IM Kit w/LIDOcaine IM ONE (16:35)
[2019-08-17 18:13] LABS: URINE HCG NEGATIVE (NEG)
== END 2019-08-17 18:14 | disposition home or self-care (01) ==
LOC: ER 15:58
DX: R39.15 Urgency of urination (principal); J44.9 Chronic obstructive pulmonary disease, unspecified; G89.29 Other chronic pain; F15.90 Other stimulant use, unspecified, uncomplicated; Z59.0 Homelessness; Z79.899 Other long term (current) drug therapy
CPT/HCPCS: 36415; 81003; 81025; 87491; 87591; 96372; 99283; J0696

== ENCOUNTER 2019-09-28 18:28 | Emergency (ER) | payer MEDICAID ==
[~2019-09-28] VITALS: Ht 165.1 cm; Wt 59.6 kg
--- NOTE | 2019-09-28 19:05 | NUR ---
Pt. ambulated over from main ER, appears cooperative, however hypomanic. RR even and unlabored. Tech at bedside going through pt. belongings.
--- NOTE | 2019-09-28 19:16 | NUR ---
Bloodwork obtained and pt. in BR attempting to urinate, however she was unable to do so. Will provide with fluids and continue to attempt to obtain urine.
[2019-09-28 19:28] LABS: BASOPHILS # (AUTO) 0.1 X10'3 (0-0.2); BASOPHILS % (AUTO) 0.6 % (0-1); EOSINOPHILS # (AUTO) 0.1 X10'3 (0-0.9); HEMATOCRIT 33.1 % (35.0-45.0); HEMOGLOBIN 11.2 g/dl (12.0-16.0); LYMPHOCYTES # (AUTO) 2.2 X10'3 (1.1-4.8); LYMPHOCYTES % (AUTO) 16.6 % (21-51); MEAN CORPUSCULAR HEMOGLOBIN 29.4 PG (27.0-31.0); MEAN CORPUSCULAR HGB CONC 33.8 g/dL (33.0-36.5); MEAN CORPUSCULAR VOLUME 87.1 FL (78-98); MEAN PLATELET VOLUME 8.2 FL (7.4-10.4); MONOCYTES % (AUTO) 7.6 % (2-12); NEUTROPHILS % (AUTO) 74.2 % (42-75); PLATELET COUNT 251 X10'3 (140-440); RED CELL DISTRIBUTION WIDTH 13.3 % (11.5-14.5); WHITE BLOOD COUNT 13.5 X10'3 (4.5-11.0)
[2019-09-28 19:38] LABS: ALANINE AMINOTRANSFERASE 24 U/L (12-78); ALBUMIN 4.3 G/DL (3.4-5.0); ALBUMIN/GLOBULIN RATIO 1.2 (1.1-1.5); ALKALINE PHOSPHATASE 102 IU/L (46-116); ANION GAP 8 (8-16); ASPARTATE AMINO TRANSFERASE 53 U/L (10-37); BILIRUBIN,TOTAL 0.3 MG/DL (0.1-1.0); BLOOD UREA NITROGEN 30 MG/DL (7-18); BUN/CREATININE RATIO 16.4 (6.6-38.0); CALCIUM 9.3 MG/DL (8.5-10.1); CHLORIDE 100 MMOL/L (99-107); CREATININE 1.83 MG/DL (0.40-0.90); GLUCOSE 89 MG/DL (70-104); SODIUM 135 MMOL/L (135-145); TOTAL CARBON DIOXIDE 26.6 MMOL/L (24-32); TOTAL PROTEIN 7.9 G/DL (6.4-8.2); eGFR 28 ML/MIN
[2019-09-28 19:48] LABS: ETHANOL < 0.010 GM/DL (0.0-0.010)
[2019-09-28 19:49] LABS: ACETAMINOPHEN < 2.0 UG/ML (10-30); VALPROATE < 3.0 UG/ML (50-100)
[2019-09-28] MEDS ORDERED: ringers solution, lacted 1,000 ML IV ONE ×2 (20:15)
--- NOTE | 2019-09-28 21:00 | NUR ---
1:1 completed at patient bedside, she is cooperative, however presents as hypomanic with a tangential and disorganized thought process. She is confused and states, "I am here for the electronic voices trying to assault me!" Pt. reports she has been having A/FAGAN in "Trump's voice." When this repairer typewriter asked pt. what the A/FAGAN say, pt. states, "That I don't deserve what the gang stalkers are going to do to me!" She also reports V/FAGAN of faces, circles, and people in trees. Pt. then says that she is upset because the roommate she lives with at [facility] [employer] tells her that the voices are not real. This roommate brought pt. into the ER this evening when pt. asked her to. However, pt. appears to be having paranoid delusional thoughts that her roommate brought her here because she wanted to kick her out. Pt. states, "The voices tell me not to go back to the [employer]!" Pt. also reports in a paranoid way that she believes she has a gang of stalkers that are following her. She endorses a psychiatric history of depression, anxiety, Bipolar D/O, schizophrenia, and panic D/O. Pt. has medications prescribed by Agnes Rinaldi at [facility]. Pt. is also reporting S/I with a plan to get hit by a car. She rates as a high suicide risk on the [place] Suicide Assessment, Dr. Fry notified and no new orders at this time. Dr. Fry also notified of pt's report that she has a prolapsed uterus and difficulty urinating at times, he recommends that pt. address this at out-patient services.
[2019-09-28 21:24] LABS: CLARITY,URINE CLEAR (Clear); COLOR,URINE YELLOW (Yellow); GLUCOSE, URINE NEGATIVE (Neg); KETONES,URINE NEGATIVE (Neg); LEUKOCYTE ESTERASE ,URINE SMALL (Neg); NITRITES, URINE NEGATIVE (Neg); OCCULT BLOOD,URINE SMALL (Neg); PROTEIN,URINE NEGATIVE (Neg); UROBILINOGEN,URINE 0.2 E.U/dL (0.2-1.0)
[2019-09-28 21:25] LABS: UA COLLECTION TYPE CLN CATCH MIDSTREAM
[2019-09-28 21:29] LABS: URINE HCG NEGATIVE (NEG)
[2019-09-28 21:33] LABS: BACTERIA,URINE NONE SEEN /HPF (Neg); MUCUS STRANDS NONE SEEN /LPF (Neg); RBC,URINE 0-2 /HPF (0-2); SQUAMOUS EPITHELIAL CELL,UR FEW /LPF (FEW); WBC,URINE 0-4 /HPF (0-4)
[2019-09-28 21:43] LABS: URINE AMPHETAMINE SCREEN NEGATIVE (Neg); URINE BARBITUATE SCREEN NEGATIVE (Neg); URINE BENZODIAZEPINES SCREEN NEGATIVE (Neg); URINE CANNABINOID SCREEN NEGATIVE (Neg); URINE COCAINE SCREEN NEGATIVE (Neg); URINE METHADONE SCREEN NEGATIVE (Neg); URINE OPIATE SCREEN NEGATIVE (Neg); URINE PHENCYCLIDINE SCREEN NEGATIVE (Neg)
--- NOTE | 2019-09-28 21:43 | NUR ---
IV placed in rt. FA, Lactated Ringer's Solution infusing, pt. tolerating well.
--- NOTE | 2019-09-28 22:00 | NUR ---
Spoke to pt's room mate, Deirdre with pt's permission. Deirdre's number
[2019-09-28] MEDS ORDERED: IBUP-1986 PO (22:07)
[2019-09-28] MEDS ORDERED: QUET300T2 PO (22:07)
[2019-09-28] MEDS ORDERED: FLUT16SP11 BOTHNARES (22:07)
[2019-09-28] MEDS ORDERED: DULO-31 PO (22:07)
[2019-09-28] MEDS ORDERED: HYDR50TA65 PO (22:07)
[2019-09-28] MEDS ORDERED: NICO-687 TOP (22:07)
[2019-09-28] MEDS ORDERED: BACL10TA PO (22:07)
[2019-09-28] MEDS ORDERED: PROP10TA10 PO (22:07)
[2019-09-28] MEDS ORDERED: GABA-532 PO (22:07)
[2019-09-28] MEDS ORDERED: CLON-527 PO (22:07)
[2019-09-28] MEDS ORDERED: ibuprofen tablet 400 MG TABLET PO PRN (22:25)
[2019-09-28] MEDS ORDERED: propranolol 10mg tablet PO PRN (22:25)
[2019-09-28] MEDS ORDERED: hydrOXYzine 25 MG tablet PO PRN (22:25)
[2019-09-28] MEDS ORDERED: baclofen 10mg tablet PO PRN (22:25)
[2019-09-28] MEDS ORDERED: QUEtiapine 25mg tablet PO SCH (22:26)
--- NOTE | 2019-09-28 23:00 | NUR ---
IV fluids complete and pt. tolerated well. IV at rt. antecubital site flushed with NS and remains patent, no s/s of erythema or induration present. Awoke pt. to administer HS medications, pt. compliant with all medications and appears fatigued. RR remain even and unlabored. Obtained picture of pt. reported self-inflicted abrasion on left abdominal area. Dr. Partida notified and recommends to clean area and apply ABT ointment. This functional tester typewriters encouraged pt. not to continue to pick at her skin and to notify staff if she felt like doing so, she reported understanding. Will endorse to AM shift.
[2019-09-28] MEDS ORDERED: quetiapine 100mg tablet PO SCH (23:02)
[2019-09-28] MEDS ORDERED: quetiapine 100mg tablet PO ONE (23:05)
[2019-09-28] MEDS: gabapentin 300mg capsule PO SCH (23:07)
--- NOTE | 2019-09-29 01:05 | NUR ---
Pt. continues to sleep at this time, laying on her back with HOB elevated, rr even and unlabored.
--- NOTE | 2019-09-29 01:38 | NUR ---
Pt. awoke with an incontinent eppisode. Able to ambulate to the BR independently and assisted to change soiled clothing with the help of staff. Pt. returns back to sleep, will continue to monitor.
--- NOTE | 2019-09-29 02:45 | NUR ---
Pt. awoke c/o anxiety and requested PRN Propranolol. V/S obtained and pulse rate slightly elevated, PRN Propranolol administerd, will continue to monitor.
--- NOTE | 2019-09-29 03:02 | NUR ---
Pt. able to return back to sleep, snoring quietly at this time, rr even and unlabored.
--- NOTE | 2019-09-29 05:09 | NUR ---
Pt. up to use the BR, able to ambulate with a steady gait. She returned to bed and requested PRN Ibuprofen for chronic lower back pain. Administered and will continue to monitor.
[2019-09-29 05:12] VITALS: BP_DIAS 78
--- NOTE | 2019-09-29 05:40 | NUR ---
Per Dr. Partida, discontinue ordered dose of 60mg Cymbalta for this AM, and give pt. 30mg instead pt. confusion over dose she has been taking. Endorse to AM shift to F/U with pt's pharmacy [facility] .
--- NOTE | 2019-09-29 05:49 | NUR ---
Pt. continues to sleep at this time, rr even and unlabored.
--- NOTE | 2019-09-29 05:52 | NUR ---
Per Dr. Partida, okay to discontinue pt's IV at this time. IV intact and pt. tolerated procedure well. Will endorse to AM shift.
[2019-09-29] MEDS ORDERED: fluticasone nasal spray 16GM bottle NS SCH (08:00)
[2019-09-29] MEDS ORDERED: duloxetine 30mg CAPSULE.DR PO ONE (08:00)
[2019-09-29] MEDS ORDERED: nicotine 21mg patch - 24 hr TD SCH (08:00)
[2019-09-29] MEDS ORDERED: duloxetine 30mg CAPSULE.DR PO SCH (08:00)
[2019-09-29] MEDS: gabapentin 300mg capsule PO SCH (08:12)
--- NOTE | 2019-09-29 08:26 | NUR ---
PT IS AWAKE AND SAFETY BREAKFAST TRAY DELIVERED TO BEDSIDE. PT STATES THAT SHE CONTINUES HEARING VOICES, UNABLE TO STATE WHAT THEY ARE TELLING HER, BUT IS SURE THAT THERE IS NO THOUGHTS OF SELF HARM OR HARM TO OTHERS. PT IS ASKING WHEN SHE WILL BE ABLE TO GO HOME TODAY, INFORMED THAT [facility] WILL BE IN THIS AM AND POSSIBLY RE-EVALUATE HER. PT IS PLEASANT, COOPERATIVE AND NON CONFRONTATIONAL PT AMBULATED TO THE BATHROOM WITHOUT ASSISTANCE.
[2019-09-29 11:01] VITALS: BP_SYST 116
--- NOTE | 2019-09-29 11:01 | NUR ---
Pt Jesus no s.s. of distress
== END 2019-09-29 11:09 | disposition home or self-care (01) ==
LOC: ER 18:29
DX: F23 Brief psychotic disorder (principal); F15.90 Other stimulant use, unspecified, uncomplicated; F10.129 Alcohol abuse with intoxication, unspecified; F31.9 Bipolar disorder, unspecified; J44.9 Chronic obstructive pulmonary disease, unspecified; F41.9 Anxiety disorder, unspecified; G89.29 Other chronic pain; Z59.0 Homelessness
CPT/HCPCS: 36415; 80053; 80164; 80178; 80305; 80320; 80329; 81001; 81025; 84443; 85025; 99285; J7120

== ENCOUNTER 2019-10-07 15:06 | Emergency (ER) | payer MEDICAID ==
[~2019-10-07] VITALS: Ht 165.1 cm; Wt 59.6 kg
[~2019-10-07 15:06] MED LIST changes: -BAC10T PO; +BACL10TA PO; +CLON-527 PO; +DULO-31 PO; +FLUT16SP11 BOTHNARES; +GABA-532 PO; -GABA300C PO; -HYDR-3686 PO; +IBUP-1986 PO; -LORA10TA65 PO; -NICO-687 TD; +NICO-687 TOP; -ONDA4TAB6 PO; -PROP20TA6 PO; -QUET100T33 PO; +QUET300T2 PO
[2019-10-07] MEDS ORDERED: olanzapine 10mg tablet PO SCH (15:10)
--- NOTE | 2019-10-07 15:45 | NUR ---
Pt brought into ER by EMS after [facility] writing a 5150 hold at [facility]. Pt has been placed on a 5150 hold for GD and presents hyperverbal with pressured speech. She is tangential with flight of ideas, yet is cooperative and needs prompting to do necesarry admission tasks. Pt unable to recall how the bruises on her arms and chest occured. Pt is a poor historian at this point.
[2019-10-07 15:52] LABS: BASOPHILS % (AUTO) 0.5 % (0-1); EOSINOPHILS % (AUTO) 0.2 % (0-6); HEMATOCRIT 37.3 % (35.0-45.0); HEMOGLOBIN 12.3 g/dl (12.0-16.0); LYMPHOCYTES # (AUTO) 2.1 X10'3 (1.1-4.8); LYMPHOCYTES % (AUTO) 22.5 % (21-51); MEAN CORPUSCULAR HEMOGLOBIN 28.7 PG (27.0-31.0); MEAN CORPUSCULAR HGB CONC 33.1 g/dL (33.0-36.5); MEAN CORPUSCULAR VOLUME 86.9 FL (78-98); MEAN PLATELET VOLUME 7.4 FL (7.4-10.4); MONOCYTES # (AUTO) 0.4 X10'3 (0-0.9); MONOCYTES % (AUTO) 4.5 % (2-12); NEUTROPHILS # (AUTO) 6.7 X10'3 (1.8-7.7); NEUTROPHILS % (AUTO) 72.3 % (42-75); PLATELET COUNT 411 X10'3 (140-440); RED BLOOD COUNT 4.29 X10'6 (4.20-5.60); RED CELL DISTRIBUTION WIDTH 13.3 % (11.5-14.5); WHITE BLOOD COUNT 9.3 X10'3 (4.5-11.0)
[2019-10-07 16:00] LABS: CLARITY,URINE CLEAR (Clear); GLUCOSE, URINE NEGATIVE (Neg); KETONES,URINE NEGATIVE (Neg); LEUKOCYTE ESTERASE ,URINE SMALL (Neg); NITRITES, URINE NEGATIVE (Neg); OCCULT BLOOD,URINE NEGATIVE (Neg); PROTEIN,URINE 30 mg/dl (Neg); URINE AMPHETAMINE SCREEN NEGATIVE (Neg); URINE BARBITUATE SCREEN NEGATIVE (Neg); URINE BENZODIAZEPINES SCREEN NEGATIVE (Neg); URINE CANNABINOID SCREEN NEGATIVE (Neg); URINE COCAINE SCREEN NEGATIVE (Neg); URINE METHADONE SCREEN NEGATIVE (Neg); URINE OPIATE SCREEN NEGATIVE (Neg); URINE PHENCYCLIDINE SCREEN NEGATIVE (Neg); UROBILINOGEN,URINE 0.2 E.U/dL (0.2-1.0)
[2019-10-07 16:04] LABS: ALANINE AMINOTRANSFERASE 18 U/L (12-78); ALBUMIN 4.2 G/DL (3.4-5.0); ALKALINE PHOSPHATASE 108 IU/L (46-116); ANION GAP 11 (8-16); ASPARTATE AMINO TRANSFERASE 29 U/L (10-37); BILIRUBIN,TOTAL 0.3 MG/DL (0.1-1.0); BLOOD UREA NITROGEN 16 MG/DL (7-18); CALCIUM 9.9 MG/DL (8.5-10.1); CHLORIDE 105 MMOL/L (99-107); CREATININE 1.23 MG/DL (0.40-0.90); GLUCOSE 101 MG/DL (70-104); POTASSIUM 4.4 MMOL/L (3.5-5.1); SODIUM 141 MMOL/L (135-145); TOTAL CARBON DIOXIDE 24.8 MMOL/L (24-32); TOTAL PROTEIN 8.5 G/DL (6.4-8.2); eGFR 44 ML/MIN
[2019-10-07 16:07] LABS: UA COLLECTION TYPE CLN CATCH MIDSTREAM
[2019-10-07 16:08] LABS: COLOR,URINE Yellow (Yellow)
[2019-10-07 16:12] LABS: SQUAMOUS EPITHELIAL CELL,UR MANY /LPF (FEW)
[2019-10-07 16:13] LABS: MUCUS STRANDS MANY /LPF (Neg); TRANSITIONAL EPI CELLS,URINE FEW /HPF
[2019-10-07 16:14] LABS: ETHANOL < 0.010 GM/DL (0.0-0.010)
[2019-10-07 16:15] LABS: BACTERIA,URINE FEW /HPF (Neg); RBC,URINE 0-2 /HPF (0-2)
--- NOTE | 2019-10-07 16:37 | NUR ---
PACKET SENT TO [facility]
[2019-10-07] MEDS: cephalexin 250mg capsule PO SCH ×3 (17:22→21:36)
--- NOTE | 2019-10-07 17:53 | NUR ---
Pt remains in bed talking to self slightly less but still hyperverbal. Pt has received first dose of antibiotic.
--- NOTE | 2019-10-07 18:51 | NUR ---
PT SITTING IN BED TALKING TO HERSELF. PT IS HYPERVERBAL AND UNABLE TO STATE WHY SHE IS HERE. SHE STATES "BECAUSE MY DAUGHTER HAD DIARRHEA AND I ASKED ALIYA TO BE MY SS WORKER AND THEN I GOT OUT OF THE BED AND I KEPT WALKING BECAUSE I FORGOT ABOUT COPULATION CONTROL BECAUSE ALL THOSE COUNTRIES MY DAD TOLD ME THIS IS NOT ISABELLE ANYMORE. THE VOICES TOLD ME TO TAKE PICTURES OF EVERY ROOM."
--- NOTE | 2019-10-07 19:50 | NUR ---
RECEIVED CALL FROM GERONIMO AT [facility], PT HAS BEEN ACCEPTED AT [facility], BY SAW FLETCHER. THEY WILL PICK HER UP TONIGHT. PT CONTINUES TO BE HYPERVERBAL.
--- NOTE | 2019-10-07 20:57 | NUR ---
PT IS SITTING QUIETLY IN BED.
--- NOTE | 2019-10-07 21:57 | NUR ---
PT HAS TROUBLE SITTING QUIETLY, SHE CONTINUES TO BE HYPERVERBAL.
[2019-10-07 22:05] VITALS: BP 164/83
== END 2019-10-07 22:09 ==
LOC: ER 15:07
DX: F31.9 Bipolar disorder, unspecified (principal); N39.0 Urinary tract infection, site not specified; J44.9 Chronic obstructive pulmonary disease, unspecified; G89.29 Other chronic pain; F41.9 Anxiety disorder, unspecified; F15.90 Other stimulant use, unspecified, uncomplicated; Z87.440 Personal history of urinary (tract) infections; Z98.890 Other specified postprocedural states; Z59.0 Homelessness
CPT/HCPCS: 36415; 80053; 80305; 80320; 81001; 84443; 85025; 99285

== ENCOUNTER 2019-10-30 13:22 | Emergency (ER) | payer MEDICAID ==
[~2019-10-30] VITALS: Ht 165.1 cm; Wt 62.7 kg
[2019-10-30 13:26] VITALS: BP 121/82
--- NOTE | 2019-10-30 15:08 | NUR ---
Pt went to her car and now returned to the ED lobby while awaiting available exam room.
[2019-10-30 16:07] LABS: CLARITY,URINE CLEAR (Clear); COLOR,URINE YELLOW (Yellow); GLUCOSE, URINE NEGATIVE (Neg); KETONES,URINE NEGATIVE (Neg); LEUKOCYTE ESTERASE ,URINE TRACE (Neg); NITRITES, URINE NEGATIVE (Neg); OCCULT BLOOD,URINE NEGATIVE (Neg); PROTEIN,URINE NEGATIVE (Neg); UROBILINOGEN,URINE 0.2 E.U/dL (0.2-1.0)
[2019-10-30 16:14] LABS: UA COLLECTION TYPE CLN CATCH MIDSTREAM
[2019-10-30 16:16] LABS: SQUAMOUS EPITHELIAL CELL,UR MODERATE /LPF (FEW)
[2019-10-30 16:17] LABS: RBC,URINE 0-2 /HPF (0-2); WBC,URINE 0-4 /HPF (0-4)
[2019-10-30 16:18] LABS: BACTERIA,URINE FEW /HPF (Neg)
--- NOTE | 2019-10-30 16:42 | NUR ---
YARA Howard in the room with the patient at this time.
[2019-10-30] MEDS ORDERED: PHEN-716 PO (16:46)
[2019-10-30] MEDS ORDERED: NITR100C6 PO (16:46)
== END 2019-10-30 17:18 | disposition home or self-care (01) ==
LOC: ER 13:23
DX: N39.0 Urinary tract infection, site not specified (principal); J44.9 Chronic obstructive pulmonary disease, unspecified; G89.29 Other chronic pain; F41.9 Anxiety disorder, unspecified; F15.90 Other stimulant use, unspecified, uncomplicated; Z59.0 Homelessness; Z98.890 Other specified postprocedural states; Z79.899 Other long term (current) drug therapy
CPT/HCPCS: 81001; 87088; 99283

== ENCOUNTER 2019-11-26 21:19 | Emergency (ER) | payer MEDICAID ==
[~2019-11-26] VITALS: Ht 160 cm; Wt 56.8 kg
[~2019-11-26 21:19] MED LIST changes: +NITR100C6 PO; +PHEN-716 PO
[2019-11-26] MEDS ORDERED: LORazepam 2 mg/ml vial IV ONE ×2 (21:25→23:10)
[2019-11-26] MEDS ORDERED: normal saline 1000ML IV soln IVB ONE (21:25)
--- NOTE | 2019-11-26 21:30 | NUR ---
Pt going to CT
[2019-11-26 21:52] LABS: BASOPHILS # (AUTO) 0.1 X10'3 (0-0.2); BASOPHILS % (AUTO) 0.5 % (0-1); EOSINOPHILS % (AUTO) 0 % (0-6); HEMATOCRIT 35.1 % (35.0-45.0); HEMOGLOBIN 11.6 g/dl (12.0-16.0); LYMPHOCYTES # (AUTO) 1.2 X10'3 (1.1-4.8); LYMPHOCYTES % (AUTO) 6.6 % (21-51); MEAN CORPUSCULAR HEMOGLOBIN 28.8 PG (27.0-31.0); MEAN CORPUSCULAR HGB CONC 33.2 g/dL (33.0-36.5); MEAN CORPUSCULAR VOLUME 86.9 FL (78-98); MEAN PLATELET VOLUME 8.7 FL (7.4-10.4); MONOCYTES # (AUTO) 1.4 X10'3 (0-0.9); MONOCYTES % (AUTO) 7.8 % (2-12); NEUTROPHILS # (AUTO) 15.1 X10'3 (1.8-7.7); NEUTROPHILS % (AUTO) 85.1 % (42-75); PLATELET COUNT 261 X10'3 (140-440); RED BLOOD COUNT 4.04 X10'6 (4.20-5.60); RED CELL DISTRIBUTION WIDTH 13.1 % (11.5-14.5); WHITE BLOOD COUNT 17.8 X10'3 (4.5-11.0)
--- NOTE | 2019-11-26 21:52 | NUR ---
pt unable to do ct. she is moving around unable to sit still. pt aox0. non responsive. Pt was straight cathed for UA. She was given 1mg iv ativan.
[2019-11-26 21:54] LABS: ALANINE AMINOTRANSFERASE 28 U/L (12-78); ALBUMIN 4.7 G/DL (3.4-5.0); ALBUMIN/GLOBULIN RATIO 1.4 (1.1-1.5); ALKALINE PHOSPHATASE 80 IU/L (46-116); ANION GAP 20 (8-16); ASPARTATE AMINO TRANSFERASE 82 U/L (10-37); BILIRUBIN,TOTAL 0.7 MG/DL (0.1-1.0); BLOOD UREA NITROGEN 44 MG/DL (7-18); CALCIUM 9.5 MG/DL (8.5-10.1); CHLORIDE 105 MMOL/L (99-107); CREATININE 3.15 MG/DL (0.40-0.90); GLUCOSE 115 MG/DL (70-104); POTASSIUM 4.4 MMOL/L (3.5-5.1); SODIUM 145 MMOL/L (135-145); TOTAL CARBON DIOXIDE 20.1 MMOL/L (24-32); TOTAL PROTEIN 8.1 G/DL (6.4-8.2); eGFR 15 ML/MIN
--- NOTE | 2019-11-26 22:00 | NUR ---
pt to ct
[2019-11-26 22:03] LABS: ETHANOL < 0.010 GM/DL (0.0-0.010)
[2019-11-26 22:05] LABS: CLARITY,URINE CLEAR (Clear); COLOR,URINE YELLOW (Yellow); GLUCOSE, URINE NEGATIVE (Neg); KETONES,URINE 15 mg/dl (Neg); LEUKOCYTE ESTERASE ,URINE NEGATIVE (Neg); NITRITES, URINE NEGATIVE (Neg); OCCULT BLOOD,URINE LARGE (Neg); PH,URINE 5.5 (4.8-8.0); PROTEIN,URINE 30 mg/dl (Neg); UROBILINOGEN,URINE 0.2 E.U/dL (0.2-1.0)
[2019-11-26 22:05] LABS: CREATINE KINASE 3217 U/L (26-192)
[2019-11-26 22:10] LABS: UA COLLECTION TYPE STRAIGHT CATH
[2019-11-26 22:11] LABS: WBC,URINE 0-4 /HPF (0-4)
[2019-11-26 22:12] LABS: BACTERIA,URINE 1+ /HPF (Neg); RBC,URINE 0-2 /HPF (0-2); SQUAMOUS EPITHELIAL CELL,UR MODERATE /LPF (FEW)
[2019-11-26 22:13] LABS: URINE AMPHETAMINE SCREEN NEGATIVE (Neg); URINE BARBITUATE SCREEN NEGATIVE (Neg); URINE BENZODIAZEPINES SCREEN NEGATIVE (Neg); URINE CANNABINOID SCREEN NEGATIVE (Neg); URINE COCAINE SCREEN NEGATIVE (Neg); URINE METHADONE SCREEN NEGATIVE (Neg); URINE OPIATE SCREEN NEGATIVE (Neg); URINE PHENCYCLIDINE SCREEN NEGATIVE (Neg)
[2019-11-26] MEDS ORDERED: cefepime 1GM in D5W 50mL 50 ML IV ONE (22:15)
[2019-11-26] MEDS ORDERED: tranexamic acid 100mg/ml inj. IV ONE (22:25)
[2019-11-26] MEDS ORDERED: tranexamic acid inj. 570 MG in normal saline 100ml IV soln 100 ML IV ONE (22:30)
--- NOTE | 2019-11-26 22:57 | NUR ---
report given to niurka molina. she ask dr bhatt if she wanted us to hang txa and states no. do not give it.
--- NOTE | 2019-11-26 23:10 | NUR ---
PER ED JUAN SCHULTE, ORDER ATIVAN 0.5MG IV X1 DOSE NOW BEFORE TRANSPORT PT IS WAKING UP
[2019-11-26 23:25] VITALS: BP 129/81
== END 2019-11-26 23:29 | disposition short-term general hospital (02) ==
LOC: ER 21:20
DX: S06.5X9A Traumatic subdural hemorrhage with loss of consciousness of unspecified duration, initial encounter (principal); S02.2XXA Fracture of nasal bones, initial encounter for closed fracture; M62.82 Rhabdomyolysis; N17.9 Acute kidney failure, unspecified; F07.81 Postconcussional syndrome; R41.82 Altered mental status, unspecified; J44.9 Chronic obstructive pulmonary disease, unspecified; G89.29 Other chronic pain; F31.9 Bipolar disorder, unspecified; F41.9 Anxiety disorder, unspecified; F15.90 Other stimulant use, unspecified, uncomplicated; Z59.0 Homelessness; Z79.899 Other long term (current) drug therapy; X58.XXXA Exposure to other specified factors, initial encounter; Y93.89 Activity, other specified; Y92.89 Other specified places as the place of occurrence of the external cause; Y99.8 Other external cause status
CPT/HCPCS: 36415; 70450; 70488; 71045; 72125; 74018; 80053; 80305; 80320; 81001; 82140; 82550; 82948; 84145; 85025; 85610; 93005; 96365; 96375; 96376; 99291; 99292; J0692; J2060; J7030; 96372

== ENCOUNTER 2019-12-19 14:46 | Emergency (ER) | payer MEDICAID ==
[~2019-12-19] VITALS: Ht 165.1 cm; Wt 59.1 kg
[2019-12-19 14:55] VITALS: BP 147/72
[2019-12-19] MEDS ORDERED: BACDS PO (15:46)
== END 2019-12-19 16:22 | disposition home or self-care (01) ==
LOC: ER 14:47
DX: L03.115 Cellulitis of right lower limb (principal); M79.671 Pain in right foot; M79.89 Other specified soft tissue disorders; J44.9 Chronic obstructive pulmonary disease, unspecified; G89.29 Other chronic pain; F41.9 Anxiety disorder, unspecified; F31.9 Bipolar disorder, unspecified; F15.90 Other stimulant use, unspecified, uncomplicated; Z87.440 Personal history of urinary (tract) infections; Z59.0 Homelessness; Z79.2 Long term (current) use of antibiotics; Z79.899 Other long term (current) drug therapy
CPT/HCPCS: 73630; 99283

== ENCOUNTER 2019-12-24 13:10 | Emergency (ER) | payer MEDICAID ==
[~2019-12-24] VITALS: Ht 165.1 cm; Wt 56.8 kg
[~2019-12-24 13:10] MED LIST changes: +BACDS PO
[2019-12-24 14:09] VITALS: BP 115/56
== END 2019-12-24 16:25 | disposition home or self-care (01) ==
LOC: ER 13:11
DX: L03.115 Cellulitis of right lower limb (principal); J44.9 Chronic obstructive pulmonary disease, unspecified; G89.29 Other chronic pain; F41.9 Anxiety disorder, unspecified; F31.9 Bipolar disorder, unspecified; F15.90 Other stimulant use, unspecified, uncomplicated; Z98.890 Other specified postprocedural states; Z59.0 Homelessness; Z79.899 Other long term (current) drug therapy
CPT/HCPCS: 99282

== ENCOUNTER → 2019-12-30 | Emergency (ER) | payer MEDICAID ==
[~2019-12-30] VITALS: Ht 165.1 cm; Wt 58.0 kg
[~2019-12-30] MED LIST changes: +ibuprofen tablet 400 MG TABLET PO ONE
--- NOTE | 2019-12-30 20:15 | NUR ---
INFORMATION SYSTEMS MANAGER TO SG WRAP PATIENTS RIGHT FOOT REQUESTED BY JUAN RUSHING
[2019-12-30 20:46] VITALS: BP 112/68
== END | disposition home or self-care (01) ==
LOC: ER 22:18
DX: R22.41 Localized swelling, mass and lump, right lower limb (principal); M79.671 Pain in right foot; J44.9 Chronic obstructive pulmonary disease, unspecified; G89.29 Other chronic pain; F41.9 Anxiety disorder, unspecified; F31.9 Bipolar disorder, unspecified; F15.90 Other stimulant use, unspecified, uncomplicated; Z59.0 Homelessness; Z79.899 Other long term (current) drug therapy
CPT/HCPCS: 99282

== ENCOUNTER 2020-02-17 10:21 | Emergency (ER) | payer MEDICAID ==
[~2020-02-17] VITALS: Ht 165.1 cm; Wt 63.0 kg
[~2020-02-17 10:21] MED LIST changes: -BACDS PO; -ibuprofen tablet 400 MG TABLET PO ONE
[2020-02-17] MEDS ORDERED: acetaminophen 325mg tablet PO ONE (10:35)
[2020-02-17] MEDS ORDERED: ketorolac trometh. 30mg/ml inj. IM ONE (10:35)
[2020-02-17] MEDS ORDERED: NAPR-56 PO (11:35)
[2020-02-17 12:01] VITALS: BP 138/89
== END 2020-02-17 12:07 | disposition home or self-care (01) ==
LOC: ER 10:22
DX: M25.561 Pain in right knee (principal); J44.9 Chronic obstructive pulmonary disease, unspecified; G89.29 Other chronic pain; F41.9 Anxiety disorder, unspecified; F31.9 Bipolar disorder, unspecified; F15.90 Other stimulant use, unspecified, uncomplicated; Z59.0 Homelessness; Z98.890 Other specified postprocedural states; Z79.899 Other long term (current) drug therapy
CPT/HCPCS: 73560; 96372; 99284; J1885

== ENCOUNTER 2020-04-04 14:53 | Inpatient (IN) | payer MEDICAID ==
[~2020-04-04] VITALS: Ht 175.3 cm; Wt 79.5 kg
[2020-04-04] MEDS ORDERED: normal saline 1000ML IV soln IVB ONE ×2 (15:00→15:10)
[2020-04-04] MEDS ORDERED: normal saline 1000ml 1,000 ML IV ONE ×2 (15:05)
[2020-04-04 15:36] LABS: BASOPHILS % (AUTO) 0.3 % (0-1); EOSINOPHILS # (AUTO) 0.2 X10'3 (0-0.9); EOSINOPHILS % (AUTO) 2.5 % (0-6); LYMPHOCYTES # (AUTO) 1.5 X10'3 (1.1-4.8); LYMPHOCYTES % (AUTO) 18.3 % (21-51); MEAN CORPUSCULAR HEMOGLOBIN 30.2 PG (27.0-31.0); MEAN CORPUSCULAR HGB CONC 33.2 g/dL (33.0-36.5); MEAN CORPUSCULAR VOLUME 90.9 FL (78-98); MEAN PLATELET VOLUME 8.2 FL (7.4-10.4); MONOCYTES # (AUTO) 0.4 X10'3 (0-0.9); MONOCYTES % (AUTO) 5.2 % (2-12); NEUTROPHILS # (AUTO) 5.9 X10'3 (1.8-7.7); NEUTROPHILS % (AUTO) 73.7 % (42-75); PLATELET COUNT 202 X10'3 (140-440); RED CELL DISTRIBUTION WIDTH 15.9 % (11.5-14.5); WHITE BLOOD COUNT 8.1 X10'3 (4.5-11.0)
[2020-04-04 16:03] LABS: ALANINE AMINOTRANSFERASE 19 U/L (12-78); ALBUMIN 3.8 G/DL (3.4-5.0); ALBUMIN/GLOBULIN RATIO 1.1 (1.1-1.5); ALKALINE PHOSPHATASE 71 IU/L (46-116); ANION GAP 8 (8-16); ASPARTATE AMINO TRANSFERASE 22 U/L (10-37); BILIRUBIN,TOTAL 0.2 MG/DL (0.1-1.0); BLOOD UREA NITROGEN 31 MG/DL (7-18); BUN/CREATININE RATIO 18.6 (6.6-38.0); CALCIUM 9.2 MG/DL (8.5-10.1); CHLORIDE 109 MMOL/L (99-107); CREATININE 1.67 MG/DL (0.40-0.90); ETHANOL < 0.010 GM/DL (0.0-0.010); GLUCOSE 85 MG/DL (70-104); POTASSIUM 4.9 MMOL/L (3.5-5.1); SODIUM 142 MMOL/L (135-145); TOTAL PROTEIN 7.2 G/DL (6.4-8.2); eGFR 31 ML/MIN
[2020-04-04 16:07] LABS: CLARITY,URINE CLEAR (Clear); COLOR,URINE YELLOW (Yellow); GLUCOSE, URINE NEGATIVE (Neg); KETONES,URINE NEGATIVE (Neg); LEUKOCYTE ESTERASE ,URINE TRACE (Neg); NITRITES, URINE NEGATIVE (Neg); OCCULT BLOOD,URINE TRACE-INTACT (Neg); PROTEIN,URINE NEGATIVE (Neg); UROBILINOGEN,URINE 0.2 E.U/dL (0.2-1.0)
[2020-04-04 16:13] LABS: UA COLLECTION TYPE OTHER
[2020-04-04 16:14] LABS: BACTERIA,URINE NONE SEEN /HPF (Neg); MUCUS STRANDS FEW /LPF (Neg); RBC,URINE 0-2 /HPF (0-2); SQUAMOUS EPITHELIAL CELL,UR FEW /LPF (FEW); WBC,URINE 0-4 /HPF (0-4)
[2020-04-04 16:20] LABS: URINE AMPHETAMINE SCREEN NEGATIVE (Neg); URINE BARBITUATE SCREEN NEGATIVE (Neg); URINE BENZODIAZEPINES SCREEN NEGATIVE (Neg); URINE CANNABINOID SCREEN NEGATIVE (Neg); URINE COCAINE SCREEN NEGATIVE (Neg); URINE METHADONE SCREEN NEGATIVE (Neg); URINE OPIATE SCREEN NEGATIVE (Neg); URINE PHENCYCLIDINE SCREEN NEGATIVE (Neg)
[2020-04-04] MEDS ORDERED: piperacillin/tazo 3.375gm/50ml 50 ML IV ONE (18:40)
[2020-04-04] MEDS ORDERED: LORA10TA7 PO (19:19)
[2020-04-04] MEDS ORDERED: OMEP-50 PO (19:19)
[2020-04-04] MEDS ORDERED: TRAZ-251 PO (19:19)
[2020-04-04] MEDS ORDERED: ALBU90AE2 PO (19:19)
[2020-04-04] MEDS ORDERED: PROP20TA6 PO (19:19)
[2020-04-04] MEDS ORDERED: ALBU2.5V13 NEB (19:19)
[2020-04-04] MEDS ORDERED: ERGO500093 PO (19:19)
[2020-04-04] MEDS ORDERED: BUDE10.2 INH (19:19)
[2020-04-04] MEDS ORDERED: CALC600T15 PO (19:19)
[2020-04-04] MEDS ORDERED: magnesium Cl slow-release 64mg tablet PO PRN (19:50)
[2020-04-04] MEDS ORDERED: magnesium 4gm in 100ml NS 100 ML IV PRN (19:50)
[2020-04-04] MEDS ORDERED: potassium Cl 20 mEq SR tablet PO PRN ×2 (19:50)
[2020-04-04] MEDS ORDERED: acetaminophen 325mg tablet PO PRN (19:50)
[2020-04-04] MEDS ORDERED: magnesium 2GM in 50ml NS 50 ML IV PRN (19:50)
[2020-04-04] MEDS ORDERED: potassium CL 10mEq/100ml bag 100 ML IV PRN ×2 (19:50)
[2020-04-04] MEDS ORDERED: ondansetron/PF 4mg/2ml inj IV PRN (19:50)
[2020-04-04] MEDS: K and/or MAG REPLACEMENT MC SCH (20:00)
[2020-04-04] MEDS ORDERED: temazepam 15mg capsule PO PRN (21:00)
[2020-04-04] MEDS: normal saline 1000ml 1,000 ML IV SCH (21:37)
[2020-04-04] MEDS: CefTRIAXone 2gm/D5W 50ml 50 ML IV SCH (21:37)
[2020-04-04] MEDS: heparin, porcine 5000 units/ml vial SQ SCH (21:37)
[2020-04-04] MEDS ORDERED: albuterol 2.5 MG/3 ML nebule NEB PRN (23:05)
[2020-04-04] MEDS ORDERED: ALBUTEROL SULFATE PO PRN (23:05)
--- NOTE | 2020-04-04 23:05 | NUR ---
patient pulled iv out, will attempt a new one.
--- NOTE | 2020-04-04 23:07 | NUR ---
Received report from Schuyler VU in the ER. Pt will be going into room 4023P.
[2020-04-04] MEDS ORDERED: hydrOXYzine 25 MG tablet PO PRN (23:10)
[2020-04-04 23:45] VITALS: BP 156/78
[2020-04-05] VITALS (7 sets, daily range): BP systolic 116–152; BP diastolic 50–101
[2020-04-05] MEDS: traZODone 50mg tablet PO SCH ×2 (00:05→20:23)
[2020-04-05] MEDS: normal saline 1000ml 1,000 ML IV SCH ×2 (05:50→10:19)
[2020-04-05 06:13] LABS: BASOPHILS % (AUTO) 0.4 % (0-1); EOSINOPHILS # (AUTO) 0.3 X10'3 (0-0.9); EOSINOPHILS % (AUTO) 4.3 % (0-6); HEMATOCRIT 30.5 % (35.0-45.0); HEMOGLOBIN 10.3 g/dl (12.0-16.0); LYMPHOCYTES # (AUTO) 1.9 X10'3 (1.1-4.8); LYMPHOCYTES % (AUTO) 32.9 % (21-51); MEAN CORPUSCULAR HEMOGLOBIN 30.4 PG (27.0-31.0); MEAN CORPUSCULAR HGB CONC 33.7 g/dL (33.0-36.5); MEAN CORPUSCULAR VOLUME 90.2 FL (78-98); MEAN PLATELET VOLUME 8.3 FL (7.4-10.4); MONOCYTES # (AUTO) 0.3 X10'3 (0-0.9); MONOCYTES % (AUTO) 5.8 % (2-12); NEUTROPHILS # (AUTO) 3.3 X10'3 (1.8-7.7); NEUTROPHILS % (AUTO) 56.6 % (42-75); PLATELET COUNT 202 X10'3 (140-440); RED BLOOD COUNT 3.39 X10'6 (4.20-5.60); RED CELL DISTRIBUTION WIDTH 15.4 % (11.5-14.5); WHITE BLOOD COUNT 5.9 X10'3 (4.5-11.0)
--- NOTE | 2020-04-05 06:16 | NUR ---
Problems reprioritized. Patient report given, questions answered & plan of care reviewed with Giuliana VU.
[2020-04-05 06:23] LABS: ALBUMIN 3.4 G/DL (3.4-5.0); ALKALINE PHOSPHATASE 70 IU/L (46-116); ANION GAP 7 (8-16); ASPARTATE AMINO TRANSFERASE 23 U/L (10-37); BILIRUBIN,TOTAL 0.2 MG/DL (0.1-1.0); BLOOD UREA NITROGEN 19 MG/DL (7-18); BUN/CREATININE RATIO 16.7 (6.6-38.0); CHLORIDE 110 MMOL/L (99-107); CHOL/HDL RATIO 5.6 (0.00-4.99); CHOLESTEROL 217 MG/DL (0-200); CREATININE 1.14 MG/DL (0.40-0.90); GLUCOSE 89 MG/DL (70-104); HDL CHOLESTEROL 39 MG/DL (35-60); LDL CHOLESTEROL 145 MG/DL (50-100); MAGNESIUM 2.9 MG/DL (1.5-2.4); POTASSIUM 4.1 MMOL/L (3.5-5.1); SODIUM 139 MMOL/L (135-145); TOTAL CARBON DIOXIDE 22.5 MMOL/L (24-32); TOTAL PROTEIN 6.7 G/DL (6.4-8.2); TRIGLYCERIDES 151 MG/DL (20-135); eGFR 48 ML/MIN
--- NOTE | 2020-04-05 06:57 | NUR ---
Patient in room ORTHO 4021B. I have received report from HORACE Gilliland and had the opportunity to ask questions and assume patient care.
[2020-04-05] MEDS: budesonide 0.5mg/2ml UD nebule IH SCH ×2 (07:12→19:57)
[2020-04-05] MEDS: albuterol 2.5 MG/3 ML nebule NEB SCH ×4 (07:12→19:57)
[2020-04-05 07:22] LABS: ALANINE AMINOTRANSFERASE 16 U/L (12-78)
[2020-04-05] MEDS: heparin, porcine 5000 units/ml vial SQ SCH ×2 (08:00→19:57)
[2020-04-05] MEDS: K and/or MAG REPLACEMENT MC SCH ×2 (08:00→20:00)
[2020-04-05] MEDS ORDERED: non-formulary drug (Budesonide/Formoterol Fumarate (Symbicort 160-4.5 Mcg Inhaler) 2 PUFFS INH SCH (08:00)
[2020-04-05] MEDS: pantoprazole 40mg Tablet.DR PO SCH (08:46)
[2020-04-05] MEDS: propranolol 10mg tablet PO SCH ×4 (08:47→20:23)
[2020-04-05] MEDS: loratadine 10mg tablet PO SCH (08:47)
[2020-04-05] MEDS: fluticasone nasal spray 16GM bottle NS SCH (08:51)
[2020-04-05] MEDS: CefTRIAXone 2gm/D5W 50ml 50 ML IV SCH (08:53)
--- NOTE | 2020-04-05 10:44 | NUR ---
Page Sent PAGER ID: [phone] MESSAGE: ERICK [id number]-RE: [id number] HEMAL MELÉNDEZ...PT CLAUSTROPHOBIC, CAN I GET AN ORDER FOR ANTI ANXIETY MED FOR MRI?
[2020-04-05] MEDS ORDERED: LORazepam 1 MG tablet PO ONE (11:30)
--- NOTE | 2020-04-05 12:39 | NUR ---
Page Sent PAGER ID: [phone] MESSAGE: ERICK 5430-RE: [id number] HEMAL MELÉNDEZ...PT COULD NOT LAY FLAT FOR MRI DUE TO VERTIGO AND ALSO REFUSED DUE TO CLAUSTROPHOBIA PER INSTRUCTOR TECHNICAL TRAINING RODOLFO
--- NOTE | 2020-04-05 13:13 | NUR ---
Page Sent PAGER ID: [phone] MESSAGE: ERICK [id number]-RE: [id number] HEMAL MELÉNDEZ...PT STATES SHE IS HAVING MUSCLE SPASMS IN NECK, SHE STATES SHE TAKES BACLOFEN FOR THEM, CAN YOU CONTINUE ORDER IN MED REC?
[2020-04-05] MEDS: acetaminophen 325mg tablet PO PRN (14:48)
--- NOTE | 2020-04-05 18:42 | NUR ---
Problems reprioritized. Patient report given, questions answered & plan of care reviewed with HORACE SPANGLER.
--- NOTE | 2020-04-05 18:45 | NUR ---
Patient in room ORTHO 4021. I have received report from Giuliana VU and had the opportunity to ask questions and assume patient care.
[2020-04-05] MEDS: lactobacillus rhamnosus 10,000 MMU CELLS/CAPSULE PO SCH (19:56)
--- NOTE | 2020-04-05 20:30 | NUR ---
Patient refused propanolol due to concern for low blood pressure and heart rate.
[2020-04-06] VITALS: BP 137/86
[2020-04-06] MEDS: normal saline 1000ml 1,000 ML IV SCH ×2 (02:15→07:57)
[2020-04-06 04:00] VITALS: BP 133/68
[2020-04-06 05:55] LABS: BASOPHILS # (AUTO) 0.1 X10'3 (0-0.2); BASOPHILS % (AUTO) 0.8 % (0-1); EOSINOPHILS # (AUTO) 0.2 X10'3 (0-0.9); EOSINOPHILS % (AUTO) 3.6 % (0-6); HEMATOCRIT 30.4 % (35.0-45.0); HEMOGLOBIN 10.3 g/dl (12.0-16.0); LYMPHOCYTES # (AUTO) 2.7 X10'3 (1.1-4.8); LYMPHOCYTES % (AUTO) 40.4 % (21-51); MEAN CORPUSCULAR HEMOGLOBIN 30.5 PG (27.0-31.0); MEAN CORPUSCULAR HGB CONC 33.8 g/dL (33.0-36.5); MEAN CORPUSCULAR VOLUME 90.4 FL (78-98); MEAN PLATELET VOLUME 8.4 FL (7.4-10.4); MONOCYTES # (AUTO) 0.4 X10'3 (0-0.9); MONOCYTES % (AUTO) 6.6 % (2-12); NEUTROPHILS # (AUTO) 3.2 X10'3 (1.8-7.7); NEUTROPHILS % (AUTO) 48.6 % (42-75); PLATELET COUNT 200 X10'3 (140-440); RED BLOOD COUNT 3.36 X10'6 (4.20-5.60); RED CELL DISTRIBUTION WIDTH 15.4 % (11.5-14.5); WHITE BLOOD COUNT 6.7 X10'3 (4.5-11.0)
[2020-04-06 06:08] LABS: ALANINE AMINOTRANSFERASE 16 U/L (12-78); ALBUMIN 3.2 G/DL (3.4-5.0); ALKALINE PHOSPHATASE 64 IU/L (46-116); ANION GAP 9 (8-16); ASPARTATE AMINO TRANSFERASE 20 U/L (10-37); BILIRUBIN,TOTAL 0.3 MG/DL (0.1-1.0); BLOOD UREA NITROGEN 14 MG/DL (7-18); BUN/CREATININE RATIO 10.9 (6.6-38.0); CHLORIDE 110 MMOL/L (99-107); CREATININE 1.29 MG/DL (0.40-0.90); GLUCOSE 81 MG/DL (70-104); MAGNESIUM 1.8 MG/DL (1.5-2.4); POTASSIUM 4.3 MMOL/L (3.5-5.1); SODIUM 143 MMOL/L (135-145); TOTAL PROTEIN 6.4 G/DL (6.4-8.2); eGFR 42 ML/MIN
--- NOTE | 2020-04-06 06:11 | NUR ---
Problems reprioritized. Patient report given, questions answered & plan of care reviewed with Giuliana VU.
--- NOTE | 2020-04-06 06:34 | NUR ---
Patient in room ORTHO 4021B. I have received report from HORACE Roth and had the opportunity to ask questions and assume patient care.
[2020-04-06] MEDS: albuterol 2.5 MG/3 ML nebule NEB SCH (07:00)
[2020-04-06] MEDS: budesonide 0.5mg/2ml UD nebule IH SCH (07:17)
[2020-04-06] MEDS: propranolol 10mg tablet PO SCH (07:50)
[2020-04-06] MEDS: loratadine 10mg tablet PO SCH (07:51)
[2020-04-06] MEDS: lactobacillus rhamnosus 10,000 MMU CELLS/CAPSULE PO SCH (07:51)
[2020-04-06] MEDS: pantoprazole 40mg Tablet.DR PO SCH (07:51)
[2020-04-06] MEDS: heparin, porcine 5000 units/ml vial SQ SCH (07:55)
[2020-04-06] MEDS: CefTRIAXone 2gm/D5W 50ml 50 ML IV SCH (07:55)
[2020-04-06] MEDS: K and/or MAG REPLACEMENT MC SCH (08:00)
[2020-04-06] MEDS: acetaminophen 325mg tablet PO PRN (08:08)
[2020-04-06] MEDS: fluticasone nasal spray 16GM bottle NS SCH (08:08)
[2020-04-06 08:53] VITALS: BP 132/64
--- NOTE | 2020-04-06 12:15 | NUR ---
DC instructions given to pt, questions answered. IV dc'd, canula intact, no complications. Tele box removed. Pt dressed self and walked with staff to [facility] to go to [facility] in stable condition.
== END 2020-04-06 12:07 | disposition home or self-care (01) | DRG 812 ==
LOC: ER 14:54 → ED HOLD 19:46 → ORTHO 4S 23:41
PROVIDERS: ADMIT Internal Medicine; ATTEND Internal Medicine
DX: T50.901A Poisoning by unspecified drugs, medicaments and biological substances, accidental (unintentional), initial encounter (principal); F29 Unspecified psychosis not due to a substance or known physiological condition; F40.240 Claustrophobia; G89.29 Other chronic pain; G92 Toxic encephalopathy; J44.9 Chronic obstructive pulmonary disease, unspecified; R42 Dizziness and giddiness; N18.30 Chronic kidney disease, stage 3 unspecified; N17.9 Acute kidney failure, unspecified; N39.0 Urinary tract infection, site not specified; F15.90 Other stimulant use, unspecified, uncomplicated; F17.210 Nicotine dependence, cigarettes, uncomplicated; F32.9 Major depressive disorder, single episode, unspecified; F41.9 Anxiety disorder, unspecified; K21.9 Gastro-esophageal reflux disease without esophagitis; M54.9 Dorsalgia, unspecified; Z87.440 Personal history of urinary (tract) infections; Z59.0 Homelessness; Y92.89 Other specified places as the place of occurrence of the external cause
CPT/HCPCS: 36415; 70450; 80053; 80061; 80305; 80320; 81001; 83036; 83735; 85025; 87081; 87088; 92508; 92616; 93880; 94640; 94760; 97110; 97116; 97161; G0378; J0696; J1644; J7030; J7626; Q0177

== ENCOUNTER 2020-06-23 08:34 | Inpatient (IN) | payer MEDICAID ==
[~2020-06-23] VITALS: Ht 165.1 cm; Wt 67.3 kg
[~2020-06-23 08:34] MED LIST changes: +ALBU2.5V13 NEB; +ALBU90AE2 PO; -BACL10TA PO; +BUDE10.2 INH; +CALC600T15 PO; -CLON-527 PO; +ERGO500093 PO; -HYDR50TA65 PO; +LORA10TA7 PO; -NICO-687 TOP; -NITR100C6 PO; +OMEP-50 PO; -PHEN-716 PO; -PROP10TA10 PO; +PROP20TA6 PO; +TRAZ-251 PO
[2020-06-23] MEDS ORDERED: normal saline 1000ML IV soln IVB ONE (11:20)
[2020-06-23 12:13] LABS: BASOPHILS % (AUTO) 0.3 % (0-1); EOSINOPHILS % (AUTO) 0 % (0-6); HEMOGLOBIN 11.5 g/dl (12.0-16.0); LYMPHOCYTES # (AUTO) 1.4 X10'3 (1.1-4.8); LYMPHOCYTES % (AUTO) 9.9 % (21-51); MEAN CORPUSCULAR HEMOGLOBIN 30.6 PG (27.0-31.0); MEAN CORPUSCULAR HGB CONC 33.8 g/dL (33.0-36.5); MEAN CORPUSCULAR VOLUME 90.4 FL (78-98); MEAN PLATELET VOLUME 8.5 FL (7.4-10.4); MONOCYTES # (AUTO) 0.8 X10'3 (0-0.9); MONOCYTES % (AUTO) 5.6 % (2-12); NEUTROPHILS # (AUTO) 12.3 X10'3 (1.8-7.7); NEUTROPHILS % (AUTO) 84.2 % (42-75); PLATELET COUNT 283 X10'3 (140-440); RED BLOOD COUNT 3.76 X10'6 (4.20-5.60); WHITE BLOOD COUNT 14.6 X10'3 (4.5-11.0)
[2020-06-23 12:32] LABS: CLARITY,URINE CLEAR (Clear); COLOR,URINE YELLOW (Yellow); GLUCOSE, URINE NEGATIVE (Neg); KETONES,URINE TRACE mg/dl (Neg); LEUKOCYTE ESTERASE ,URINE SMALL (Neg); NITRITES, URINE NEGATIVE (Neg); OCCULT BLOOD,URINE NEGATIVE (Neg); PROTEIN,URINE NEGATIVE (Neg); UROBILINOGEN,URINE 0.2 E.U/dL (0.2-1.0)
[2020-06-23 12:33] LABS: ALANINE AMINOTRANSFERASE 29 U/L (12-78); ALBUMIN 4.5 G/DL (3.4-5.0); ALBUMIN/GLOBULIN RATIO 1.3 (1.1-1.5); ALKALINE PHOSPHATASE 82 IU/L (46-116); ANION GAP 13 (8-16); ASPARTATE AMINO TRANSFERASE 66 U/L (10-37); BILIRUBIN,TOTAL 0.4 MG/DL (0.1-1.0); BLOOD UREA NITROGEN 24 MG/DL (7-18); BUN/CREATININE RATIO 17.4 (6.6-38.0); CALCIUM 8.6 MG/DL (8.5-10.1); CHLORIDE 105 MMOL/L (99-107); CREATININE 1.38 MG/DL (0.40-0.90); GLUCOSE 92 MG/DL (70-104); POTASSIUM 4.3 MMOL/L (3.5-5.1); SODIUM 143 MMOL/L (135-145); TOTAL PROTEIN 7.9 G/DL (6.4-8.2); eGFR 39 ML/MIN
[2020-06-23 12:36] LABS: ETHANOL < 0.010 GM/DL (0.0-0.010); TROPONIN I < 0.04 NG/ML (0.0-0.05)
[2020-06-23 12:38] LABS: UA COLLECTION TYPE CLN CATCH MIDSTREAM
[2020-06-23 12:40] LABS: SQUAMOUS EPITHELIAL CELL,UR FEW /LPF (FEW)
[2020-06-23 12:42] LABS: BACTERIA,URINE FEW /HPF (Neg); RBC,URINE 0-2 /HPF (0-2)
[2020-06-23 12:43] LABS: WBC,URINE 0-4 /HPF (0-4); YEAST FEW /HPF (NEGATIVE)
[2020-06-23 12:46] LABS: URINE AMPHETAMINE SCREEN NEGATIVE (Neg); URINE BARBITUATE SCREEN NEGATIVE (Neg); URINE BENZODIAZEPINES SCREEN NEGATIVE (Neg); URINE CANNABINOID SCREEN NEGATIVE (Neg); URINE COCAINE SCREEN NEGATIVE (Neg); URINE METHADONE SCREEN NEGATIVE (Neg); URINE OPIATE SCREEN NEGATIVE (Neg); URINE PHENCYCLIDINE SCREEN NEGATIVE (Neg)
--- NOTE | 2020-06-23 14:21 | NUR ---
Valeria, [facility] Concrete Boom Pump Operator, spoken with at this time. She states pt has "been around the streets for years" and had been doing well at [facility] [employer], where "someone gave her meds and fed her." She got d/c from [facility] recently, and went to [facility], where she was "not able to live with others, then she was sent to a hotel and stayed there for one week." This ended yesterday and so pt was back on the streets today. Valeria reports that pt had had a "big bag of all her medications" which "I cannot find now." Poison control called at this time.
--- NOTE | 2020-06-23 14:33 | NUR ---
Valeria Mcarthur Country Tie In Hand [phone] Poison Control recommendations given to
--- NOTE | 2020-06-23 15:01 | NUR ---
Pt continually trying to get out of bed and wander around. Sitter at bedside for safety. She is able to answer her name and birthday, denies taking medications. She reports she is "acting like this because my foot hurts." Ice applied to R foot. Pt assisted to BR many times.
[2020-06-23] MEDS ORDERED: CLON-371 PO (15:37)
[2020-06-23] MEDS ORDERED: MECL-159 PO (15:37)
[2020-06-23] MEDS ORDERED: BACL20TA2 PO (15:37)
[2020-06-23 15:38] LABS: ACETAMINOPHEN < 2.0 UG/ML (10-30)
[2020-06-23] MEDS ORDERED: magnesium 4gm in 100ml NS 100 ML IV PRN (16:05)
[2020-06-23] MEDS ORDERED: bisacodyl 10mg suppository rectal RC PRN (16:05)
[2020-06-23] MEDS ORDERED: acetaminophen 650mg rectal suppository RC PRN (16:05)
[2020-06-23] MEDS ORDERED: magnesium 2GM in 50ml NS 50 ML IV PRN (16:05)
[2020-06-23] MEDS ORDERED: potassium Cl 40MEQ/1/2NS 520ml 520 ML IV PRN ×2 (16:05)
[2020-06-23] MEDS ORDERED: potassium Cl 20 mEq SR tablet PO PRN ×2 (16:05)
[2020-06-23] MEDS ORDERED: mag hydrox/Alum hydrox/simeth 30ml oral suspension PO PRN (16:05)
[2020-06-23] MEDS ORDERED: morphine 2 MG/ML inj. syringe IV PRN (16:05)
[2020-06-23] MEDS ORDERED: HYDROcodone/acetaminophen 5mg/325mg tablet PO PRN (16:05)
[2020-06-23] MEDS ORDERED: acetaminophen 325mg tablet PO PRN (16:05)
[2020-06-23] MEDS ORDERED: magnesium hydroxide 30ml (MOM) UD suspension PO PRN (16:05)
[2020-06-23] MEDS ORDERED: magnesium Cl slow-release 64mg tablet PO PRN (16:05)
[2020-06-23] MEDS ORDERED: diphenhydrAMINE 25mg capsule PO PRN (16:05)
[2020-06-23] MEDS ORDERED: diltiazem-NS 100mg/100ml 100 ML IV SCH (16:25)
[2020-06-23] MEDS: CefTRIAXone/D5W-Rocephin 1gm 50 ML IV SCH (16:55)
[2020-06-23] MEDS: normal saline 1000ml 1,000 ML IV SCH (16:55)
[2020-06-23] MEDS: propranolol 10mg tablet PO SCH ×2 (16:55→20:55)
[2020-06-23 16:57] LABS: HEMOGLOBIN A1C 5.9 % (4.5-6.2)
--- NOTE | 2020-06-23 18:49 | NUR ---
Pt resting in bed, enjoying meal tray at this time.
--- NOTE | 2020-06-23 19:56 | NUR ---
Dr. Stoddard at bedside.
[2020-06-23 20:00] VITALS: BP 121/69
[2020-06-23] MEDS: K and/or MAG REPLACEMENT MC SCH (20:00)
--- NOTE | 2020-06-23 20:00 | NUR ---
Patient in room PCU 3027. I have received report from YUNG Rendon RN and had the opportunity to ask questions and assume patient care.
[2020-06-23] MEDS: heparin, porcine 5000 units/ml vial SQ SCH (20:55)
[2020-06-23] MEDS: HYDROcodone/acetaminophen 10/325mg tab PO PRN (20:56)
--- NOTE | 2020-06-23 21:19 | NUR ---
Lab called to let Rn know that patient has a non specific anitbody, so if blood is needed, RN to alert lab prior to get blood needed in time.
--- NOTE | 2020-06-23 21:59 | NUR ---
PAGER ID: [phone] MESSAGE: [phone] Bethany Combs, poison control called and would like another salicylate lab drawn for morning. [id number] Rashida
[2020-06-23 22:00] VITALS: BP 116/60
--- NOTE | 2020-06-24 00:23 | NUR ---
ok to have salicylate lab drawn in morning.
[2020-06-24] MEDS: HYDROcodone/acetaminophen 10/325mg tab PO PRN ×4 (01:20→16:11)
[2020-06-24] MEDS: normal saline 1000ml 1,000 ML IV SCH ×2 (01:36→11:39)
[2020-06-24 02:00] VITALS: BP 111/51
[2020-06-24 06:24] LABS: BASOPHILS % (AUTO) 0.5 % (0-1); EOSINOPHILS # (AUTO) 0.2 X10'3 (0-0.9); EOSINOPHILS % (AUTO) 2.2 % (0-6); HEMATOCRIT 29.9 % (35.0-45.0); HEMOGLOBIN 10.3 g/dl (12.0-16.0); LYMPHOCYTES % (AUTO) 31.2 % (21-51); MEAN CORPUSCULAR HEMOGLOBIN 31.9 PG (27.0-31.0); MEAN CORPUSCULAR HGB CONC 34.6 g/dL (33.0-36.5); MEAN CORPUSCULAR VOLUME 92.1 FL (78-98); MEAN PLATELET VOLUME 8.3 FL (7.4-10.4); MONOCYTES # (AUTO) 0.8 X10'3 (0-0.9); MONOCYTES % (AUTO) 8.2 % (2-12); NEUTROPHILS # (AUTO) 5.7 X10'3 (1.8-7.7); NEUTROPHILS % (AUTO) 57.9 % (42-75); PLATELET COUNT 241 X10'3 (140-440); RED BLOOD COUNT 3.24 X10'6 (4.20-5.60); RED CELL DISTRIBUTION WIDTH 12.9 % (11.5-14.5); WHITE BLOOD COUNT 9.8 X10'3 (4.5-11.0)
--- NOTE | 2020-06-24 06:39 | NUR ---
Problems reprioritized. Patient report given, questions answered & plan of care reviewed with Carmen VU.
[2020-06-24 07:07] LABS: ALANINE AMINOTRANSFERASE 25 U/L (12-78); ALBUMIN 3.7 G/DL (3.4-5.0); ALBUMIN/GLOBULIN RATIO 1.2 (1.1-1.5); ALKALINE PHOSPHATASE 73 IU/L (46-116); ANION GAP 10 (8-16); ASPARTATE AMINO TRANSFERASE 60 U/L (10-37); BILIRUBIN,TOTAL 0.4 MG/DL (0.1-1.0); BLOOD UREA NITROGEN 19 MG/DL (7-18); BUN/CREATININE RATIO 17.6 (6.6-38.0); CHLORIDE 106 MMOL/L (99-107); CHOL/HDL RATIO 3.6 (0.00-4.99); CHOLESTEROL 208 MG/DL (0-200); CREATININE 1.08 MG/DL (0.40-0.90); GLUCOSE 86 MG/DL (70-104); HDL CHOLESTEROL 57 MG/DL (35-60); LDL CHOLESTEROL 139 MG/DL (50-100); MAGNESIUM 2.1 MG/DL (1.5-2.4); PHOSPHORUS 2.2 MG/DL (2.3-4.5); POTASSIUM 4.3 MMOL/L (3.5-5.1); SODIUM 138 MMOL/L (135-145); TOTAL CARBON DIOXIDE 22.1 MMOL/L (24-32); TOTAL PROTEIN 6.9 G/DL (6.4-8.2); TRIGLYCERIDES 77 MG/DL (20-135); eGFR 51 ML/MIN
[2020-06-24 07:11] VITALS: BP 123/62
[2020-06-24] MEDS: propranolol 10mg tablet PO SCH ×4 (07:23→21:00)
[2020-06-24] MEDS: heparin, porcine 5000 units/ml vial SQ SCH ×2 (07:23→21:01)
[2020-06-24] MEDS: CefTRIAXone/D5W-Rocephin 1gm 50 ML IV SCH (07:23)
[2020-06-24] MEDS: pantoprazole 40mg Tablet.DR PO SCH (07:23)
[2020-06-24] MEDS: K and/or MAG REPLACEMENT MC SCH ×2 (07:35→20:00)
--- NOTE | 2020-06-24 09:31 | NUR ---
Paged Critical Result to Dr Stoddard "PAGER ID: [phone] MESSAGE: [phone] Laxmi [id number] Bethany Combs has positive blood cultures. Gram positive cocci in clusters, positive at 17 hours, drawn from IV site, aerobic bottle."
[2020-06-24] MEDS: vancomycin/NS 1 GM ADD-VANTAGE 250 ML IV SCH (11:38)
[2020-06-24 12:00] VITALS: BP 104/56
--- NOTE | 2020-06-24 14:02 | NUR ---
PATIENT HAS A BLISTER AROUND HER LEFT GREAT TOE. DR MAYBERRY ASKED THAT GARRY BE NOTIFIED OF THIS. I MADE A TELEPHONE CALL TO DR CASTAÑEDA AND HE WILL BE COMING TO SEE HER WHEN HE ROUNDS LATER TODAY.
--- NOTE | 2020-06-24 14:43 | NUR ---
PAGER ID: [phone] MESSAGE: Rehana Combs [id number]: FYI...salicylate level went back up to 6.8. also, lab called and wants MD to be aware that patient has an antibody so they will need to know in advance if she will need blood at any point. thanks, Alyx [phone]
--- NOTE | 2020-06-24 15:23 | NUR ---
PAGER ID: [phone] MESSAGE: Rehana Combs [id number]: poison control called again. said they would like to see 2 downtrends in a row and recommends Q3H lab draws. thanks! karey [phone]
[2020-06-24] MEDS: nicotine 21mg patch - 24 hr TD SCH (15:30)
[2020-06-24 16:00] VITALS: BP 136/69
--- NOTE | 2020-06-24 17:51 | NUR ---
Page sent to Case Management: Rehana Combs [id number]: just spoke with Addis at [facility]. She is requesting a phone call to discuss patients discharge plan. Her cell phone number is [phone]. thank you!
--- NOTE | 2020-06-24 18:30 | NUR ---
Patient in room PCU 3027. I have received report from Carmen VU and had the opportunity to ask questions and assume patient care.
--- NOTE | 2020-06-24 18:51 | NUR ---
Problems reprioritized. Patient report given, questions answered & plan of care reviewed with HORACE Pierson.
[2020-06-24 19:00] VITALS: BP 128/66
[2020-06-24] MEDS: ondansetron/PF 4mg/2ml inj IV PRN (20:35)
--- NOTE | 2020-06-24 21:00 | NUR ---
Informed Hospitalist pt requesting restart psych meds- No new orders at this time- passed on to day shift in report @ [id number]
[2020-06-24 23:00] VITALS: BP 113/68
--- NOTE | 2020-06-24 23:00 | NUR ---
Poison Control called, spoke with Catrachita, she was calling to confirm whether or not labs for Salicylate levels were redrawn. Explained no new orders at this time-
--- NOTE | 2020-06-24 23:40 | NUR ---
Page Sent-PAGER ID: [phone] MESSAGE: # [phone] Bethany Combs- Poison Control called 3rd x. said they would like to see Salicylate level downtrends 2 in a row, they recommend Q3H lab draws. May I order?
[2020-06-25 02:00] VITALS: BP 109/55
[2020-06-25] MEDS: HYDROcodone/acetaminophen 10/325mg tab PO PRN ×4 (02:12→20:35)
[2020-06-25] MEDS: ondansetron/PF 4mg/2ml inj IV PRN ×3 (02:14→22:16)
[2020-06-25] MEDS: normal saline 1000ml 1,000 ML IV SCH ×4 (02:14→22:08)
[2020-06-25 03:54] LABS: BASOPHILS % (AUTO) 0.6 % (0-1); EOSINOPHILS # (AUTO) 0.1 X10'3 (0-0.9); EOSINOPHILS % (AUTO) 1.8 % (0-6); HEMATOCRIT 28.5 % (35.0-45.0); HEMOGLOBIN 9.8 g/dl (12.0-16.0); LYMPHOCYTES # (AUTO) 2.4 X10'3 (1.1-4.8); LYMPHOCYTES % (AUTO) 30.3 % (21-51); MEAN CORPUSCULAR HGB CONC 34.6 g/dL (33.0-36.5); MEAN CORPUSCULAR VOLUME 92.5 FL (78-98); MEAN PLATELET VOLUME 8.5 FL (7.4-10.4); MONOCYTES # (AUTO) 0.6 X10'3 (0-0.9); MONOCYTES % (AUTO) 8.1 % (2-12); NEUTROPHILS # (AUTO) 4.7 X10'3 (1.8-7.7); NEUTROPHILS % (AUTO) 59.2 % (42-75); PLATELET COUNT 218 X10'3 (140-440); RED BLOOD COUNT 3.08 X10'6 (4.20-5.60); RED CELL DISTRIBUTION WIDTH 13.1 % (11.5-14.5)
[2020-06-25 04:05] LABS: ACETAMINOPHEN < 2.0 UG/ML (10-30); ALANINE AMINOTRANSFERASE 26 U/L (12-78); ALBUMIN 3.5 G/DL (3.4-5.0); ALBUMIN/GLOBULIN RATIO 1.1 (1.1-1.5); ALKALINE PHOSPHATASE 67 IU/L (46-116); ANION GAP 9 (8-16); ASPARTATE AMINO TRANSFERASE 47 U/L (10-37); BILIRUBIN,TOTAL 0.3 MG/DL (0.1-1.0); BLOOD UREA NITROGEN 13 MG/DL (7-18); BUN/CREATININE RATIO 13.1 (6.6-38.0); CALCIUM 8.4 MG/DL (8.5-10.1); CHLORIDE 107 MMOL/L (99-107); CREATININE 0.99 MG/DL (0.40-0.90); GLUCOSE 98 MG/DL (70-104); MAGNESIUM 1.9 MG/DL (1.5-2.4); PHOSPHORUS 2.7 MG/DL (2.3-4.5); POTASSIUM 4.8 MMOL/L (3.5-5.1); SODIUM 140 MMOL/L (135-145); TOTAL CARBON DIOXIDE 23.9 MMOL/L (24-32); TOTAL PROTEIN 6.6 G/DL (6.4-8.2); eGFR 57 ML/MIN
--- NOTE | 2020-06-25 06:30 | NUR ---
Patient in room PCU 3027. I have received report from AILYN VU and had the opportunity to ask questions and assume patient care.
--- NOTE | 2020-06-25 06:34 | NUR ---
Problems reprioritized. Patient report given, questions answered & plan of care reviewed with Ashley VU.
--- NOTE | 2020-06-25 06:35 | NUR ---
Called poison control to relay new Salicylate level 5.9-"Janessa" said there is no need to redraw labs- They are clearing her from their roster.
[2020-06-25 07:00] VITALS: BP 135/68
--- NOTE | 2020-06-25 07:30 | NUR ---
NOC SHIFT RN CALLED POISON CONTROL BEFORE SHE LEFT TO INFORM THEM OF SALICYTE LEVELS. LAST LEVEL WAS 5.9 FROM 6.8..POISON CONTROL STATED THERE IS NO NEED TO KEEP FOLLOWING.
[2020-06-25] MEDS: K and/or MAG REPLACEMENT MC SCH ×2 (08:00→20:00)
[2020-06-25] MEDS: heparin, porcine 5000 units/ml vial SQ SCH ×2 (08:21→20:35)
[2020-06-25] MEDS: lactobacillus rhamnosus 10,000 MMU CELLS/CAPSULE PO SCH ×2 (08:22→20:35)
[2020-06-25] MEDS: propranolol 10mg tablet PO SCH ×4 (08:22→22:03)
[2020-06-25] MEDS: pantoprazole 40mg Tablet.DR PO SCH (08:22)
[2020-06-25] MEDS: CefTRIAXone/D5W-Rocephin 1gm 50 ML IV SCH (08:22)
[2020-06-25] MEDS: nicotine 21mg patch - 24 hr TD SCH (08:23)
[2020-06-25 11:00] VITALS: BP 144/60
[2020-06-25] MEDS: vancomycin/NS 1 GM ADD-VANTAGE 250 ML IV SCH (12:52)
[2020-06-25 15:00] VITALS: BP 140/70
[2020-06-25 18:00] VITALS: BP 155/72
--- NOTE | 2020-06-25 18:35 | NUR ---
Patient in room PCU 3027. I have received report from HORACE Ramirez and had the opportunity to ask questions and assume patient care.
[2020-06-25 21:39] LABS: CLARITY,URINE CLEAR (Clear); COLOR,URINE STRAW (Yellow); GLUCOSE, URINE NEGATIVE (Neg); KETONES,URINE NEGATIVE (Neg); LEUKOCYTE ESTERASE ,URINE TRACE (Neg); NITRITES, URINE NEGATIVE (Neg); OCCULT BLOOD,URINE NEGATIVE (Neg); PROTEIN,URINE NEGATIVE (Neg); UA COLLECTION TYPE CLN CATCH MIDSTREAM; UROBILINOGEN,URINE 0.2 E.U/dL (0.2-1.0)
[2020-06-25 21:45] LABS: BACTERIA,URINE NONE SEEN /HPF (Neg); RBC,URINE NONE SEEN /HPF (0-2); SQUAMOUS EPITHELIAL CELL,UR FEW /LPF (FEW); WBC,URINE 0-4 /HPF (0-4)
[2020-06-25] MEDS: phenazopyridine 100mg tablet PO SCH (22:04)
[2020-06-25] MEDS: acetaminophen 325mg tablet PO PRN ×2 (22:14→22:45)
[2020-06-25 22:15] VITALS: BP 146/68
[2020-06-26] VITALS (8 sets, daily range): BP systolic 132–166; BP diastolic 69–76
[2020-06-26] MEDS: HYDROcodone/acetaminophen 10/325mg tab PO PRN ×4 (01:14→15:59)
[2020-06-26 06:05] LABS: BASOPHILS # (AUTO) 0.1 X10'3 (0-0.2); BASOPHILS % (AUTO) 0.9 % (0-1); EOSINOPHILS # (AUTO) 0.1 X10'3 (0-0.9); EOSINOPHILS % (AUTO) 2.6 % (0-6); HEMOGLOBIN 10.2 g/dl (12.0-16.0); LYMPHOCYTES # (AUTO) 1.9 X10'3 (1.1-4.8); LYMPHOCYTES % (AUTO) 34.8 % (21-51); MEAN CORPUSCULAR HEMOGLOBIN 31.2 PG (27.0-31.0); MEAN CORPUSCULAR HGB CONC 33.9 g/dL (33.0-36.5); MEAN CORPUSCULAR VOLUME 92.1 FL (78-98); MEAN PLATELET VOLUME 8.5 FL (7.4-10.4); MONOCYTES # (AUTO) 0.5 X10'3 (0-0.9); MONOCYTES % (AUTO) 9.1 % (2-12); NEUTROPHILS # (AUTO) 2.9 X10'3 (1.8-7.7); NEUTROPHILS % (AUTO) 52.6 % (42-75); PLATELET COUNT 200 X10'3 (140-440); RED BLOOD COUNT 3.25 X10'6 (4.20-5.60); RED CELL DISTRIBUTION WIDTH 13.1 % (11.5-14.5); WHITE BLOOD COUNT 5.6 X10'3 (4.5-11.0)
[2020-06-26 06:17] LABS: ANION GAP 11 (8-16); BLOOD UREA NITROGEN 9 MG/DL (7-18); BUN/CREATININE RATIO 8.8 (6.6-38.0); CHLORIDE 110 MMOL/L (99-107); CREATININE 1.02 MG/DL (0.40-0.90); GLUCOSE 86 MG/DL (70-104); POTASSIUM 4.5 MMOL/L (3.5-5.1); SODIUM 146 MMOL/L (135-145)
[2020-06-26 06:18] LABS: ALANINE AMINOTRANSFERASE 25 U/L (12-78); ALBUMIN 3.6 G/DL (3.4-5.0); ALBUMIN/GLOBULIN RATIO 1.1 (1.1-1.5); ALKALINE PHOSPHATASE 64 IU/L (46-116); ASPARTATE AMINO TRANSFERASE 37 U/L (10-37); BILIRUBIN,TOTAL 0.3 MG/DL (0.1-1.0); CALCIUM 9.1 MG/DL (8.5-10.1); MAGNESIUM 1.9 MG/DL (1.5-2.4); PHOSPHORUS 3.5 MG/DL (2.3-4.5); TOTAL PROTEIN 6.9 G/DL (6.4-8.2); eGFR 55 ML/MIN
--- NOTE | 2020-06-26 06:40 | NUR ---
Patient in room PCU 3027. I have received report from Val VU and had the opportunity to ask questions and assume patient care.
--- NOTE | 2020-06-26 06:55 | NUR ---
Problems reprioritized. Patient report given, questions answered & plan of care reviewed with HORACE Larson.
[2020-06-26] MEDS: phenazopyridine 100mg tablet PO SCH ×3 (07:26→17:56)
[2020-06-26] MEDS: lactobacillus rhamnosus 10,000 MMU CELLS/CAPSULE PO SCH ×2 (07:26→20:50)
[2020-06-26] MEDS: nicotine 21mg patch - 24 hr TD SCH (07:27)
[2020-06-26] MEDS: propranolol 10mg tablet PO SCH ×4 (07:28→20:52)
[2020-06-26] MEDS: heparin, porcine 5000 units/ml vial SQ SCH ×2 (07:30→20:53)
[2020-06-26] MEDS: CefTRIAXone/D5W-Rocephin 1gm 50 ML IV SCH (07:30)
[2020-06-26] MEDS: pantoprazole 40mg Tablet.DR PO SCH (07:31)
[2020-06-26] MEDS: normal saline 1000ml 1,000 ML IV SCH (07:35)
[2020-06-26] MEDS: K and/or MAG REPLACEMENT MC SCH ×2 (08:00→20:00)
[2020-06-26] MEDS: vancomycin/NS 1 GM ADD-VANTAGE 250 ML IV SCH (11:17)
--- NOTE | 2020-06-26 11:20 | NUR ---
Pt has a large blister on her toe where the cast is at. [facility] was asked for his advise on her cast. Pt's foot is warm, she can wiggle her toes, and capillary refill is <.03 Pt states her foot does not hurt and that the blister is from tape. Foot is warm to touch and is not painful unless pt hits it on the bed per pt's statement.
[2020-06-26] MEDS ORDERED: albuterol 2.5 MG/3 ML nebule NEB PRN (17:40)
[2020-06-26] MEDS ORDERED: ALBUTEROL SULFATE PO PRN (17:40)
--- NOTE | 2020-06-26 18:39 | NUR ---
Patient in room PCU 3027. I have received report from Marsha VU and had the opportunity to ask questions and assume patient care.
--- NOTE | 2020-06-26 18:39 | NUR ---
Problems reprioritized. Patient report given, questions answered & plan of care reviewed with Haylee VU.
[2020-06-26] MEDS: clonazePAM 1mg tablet PO PRN (19:04)
[2020-06-26] MEDS: budesonide 0.5mg/2ml UD nebule IH SCH (20:26)
[2020-06-26] MEDS: albuterol 2.5 MG/3 ML nebule NEB SCH (20:26)
[2020-06-26] MEDS: traZODone 50mg tablet PO SCH (20:51)
[2020-06-26] MEDS: baclofen 10mg tablet PO SCH (20:51)
[2020-06-26] MEDS: calcium carbonate 500mg tablet PO SCH (20:51)
[2020-06-26] MEDS: gabapentin 300mg capsule PO SCH (20:51)
[2020-06-26] MEDS: quetiapine 100mg tablet PO SCH (20:52)
--- NOTE | 2020-06-27 01:30 | NUR ---
Patient confused and ripped her soft cast off. Blister popped on toe and patient was incontinent. Covered blister with gauze and kerlix. Bed alarm placed.
[2020-06-27] MEDS: HYDROcodone/acetaminophen 10/325mg tab PO PRN ×2 (01:50→18:31)
[2020-06-27 02:00] VITALS: BP 135/77
[2020-06-27] MEDS: albuterol 2.5 MG/3 ML nebule NEB SCH ×4 (02:00→19:58)
--- NOTE | 2020-06-27 02:57 | NUR ---
Patient ripped off new bandage on foot and had cigarette in mouth. Locked away patients cigarettes and lighters.
--- NOTE | 2020-06-27 05:17 | NUR ---
Patient becoming very agitated and wanting to leave to go smoke. Educated that we are a no smoking hospital. Patient wanting to leave AMA. Hospitalist paged.
[2020-06-27 06:20] LABS: BASOPHILS % (AUTO) 0.8 % (0-1); EOSINOPHILS # (AUTO) 0.1 X10'3 (0-0.9); EOSINOPHILS % (AUTO) 1.9 % (0-6); HEMATOCRIT 29.6 % (35.0-45.0); LYMPHOCYTES # (AUTO) 1.8 X10'3 (1.1-4.8); LYMPHOCYTES % (AUTO) 37.6 % (21-51); MEAN CORPUSCULAR HEMOGLOBIN 31.1 PG (27.0-31.0); MEAN CORPUSCULAR HGB CONC 33.9 g/dL (33.0-36.5); MEAN CORPUSCULAR VOLUME 91.8 FL (78-98); MEAN PLATELET VOLUME 8.2 FL (7.4-10.4); MONOCYTES # (AUTO) 0.5 X10'3 (0-0.9); MONOCYTES % (AUTO) 10.2 % (2-12); NEUTROPHILS # (AUTO) 2.4 X10'3 (1.8-7.7); NEUTROPHILS % (AUTO) 49.5 % (42-75); PLATELET COUNT 196 X10'3 (140-440); RED BLOOD COUNT 3.22 X10'6 (4.20-5.60); RED CELL DISTRIBUTION WIDTH 13.1 % (11.5-14.5); WHITE BLOOD COUNT 4.9 X10'3 (4.5-11.0)
--- NOTE | 2020-06-27 06:33 | NUR ---
Problems reprioritized. Patient report given, questions answered & plan of care reviewed with Alicia VU. Patient sitting in room at the moment but wanting to leave to go smoke.
--- NOTE | 2020-06-27 06:37 | NUR ---
Patient in room PCU 3027. I have received report from mac bah and had the opportunity to ask questions and assume patient care.
[2020-06-27 06:46] LABS: ALANINE AMINOTRANSFERASE 24 U/L (12-78); ALBUMIN 3.7 G/DL (3.4-5.0); ALBUMIN/GLOBULIN RATIO 1.1 (1.1-1.5); ALKALINE PHOSPHATASE 67 IU/L (46-116); ANION GAP 8 (8-16); ASPARTATE AMINO TRANSFERASE 31 U/L (10-37); BILIRUBIN,TOTAL 0.3 MG/DL (0.1-1.0); BLOOD UREA NITROGEN 10 MG/DL (7-18); BUN/CREATININE RATIO 8.3 (6.6-38.0); CALCIUM 9.8 MG/DL (8.5-10.1); CHLORIDE 108 MMOL/L (99-107); CREATININE 1.21 MG/DL (0.40-0.90); GLUCOSE 113 MG/DL (70-104); MAGNESIUM 1.8 MG/DL (1.5-2.4); PHOSPHORUS 4.9 MG/DL (2.3-4.5); POTASSIUM 3.7 MMOL/L (3.5-5.1); SODIUM 143 MMOL/L (135-145); TOTAL CARBON DIOXIDE 26.9 MMOL/L (24-32); TOTAL PROTEIN 7.2 G/DL (6.4-8.2); eGFR 45 ML/MIN
--- NOTE | 2020-06-27 07:01 | NUR ---
PT REFUSING VITAL SIGNS AT THIS TIME Addendum: 06/27/20 at 0701 by Priscilla Houser RN Amended: Links added.
--- NOTE | 2020-06-27 07:03 | NUR ---
PT VERY AGGRESSIVE. WILL NOT STAY IN ROOM. MAKING STATEMENTS " YOU'RE NOT GONNA TELL ME WHAT TO DO!". SECURITY CALLED TO PCU.
[2020-06-27] MEDS: budesonide 0.5mg/2ml UD nebule IH SCH ×2 (07:26→19:58)
[2020-06-27] MEDS: K and/or MAG REPLACEMENT MC SCH ×2 (08:00→20:00)
[2020-06-27] MEDS: fluticasone nasal spray 16GM bottle NS SCH (08:00)
[2020-06-27] MEDS: CefTRIAXone/D5W-Rocephin 1gm 50 ML IV SCH (08:58)
[2020-06-27] MEDS: duloxetine 30mg CAPSULE.DR PO SCH (08:58)
[2020-06-27] MEDS: gabapentin 300mg capsule PO SCH ×3 (08:58→20:03)
[2020-06-27] MEDS: nicotine 21mg patch - 24 hr TD SCH (08:58)
[2020-06-27] MEDS: phenazopyridine 100mg tablet PO SCH ×3 (08:58→17:51)
[2020-06-27] MEDS: calcium carbonate 500mg tablet PO SCH ×2 (08:58→20:02)
[2020-06-27] MEDS: baclofen 10mg tablet PO SCH ×2 (08:58→20:02)
[2020-06-27] MEDS: lactobacillus rhamnosus 10,000 MMU CELLS/CAPSULE PO SCH ×2 (08:58→20:02)
[2020-06-27] MEDS: propranolol 10mg tablet PO SCH ×4 (08:58→20:06)
[2020-06-27] MEDS: heparin, porcine 5000 units/ml vial SQ SCH ×2 (08:59→20:04)
[2020-06-27] MEDS: pantoprazole 40mg Tablet.DR PO SCH (09:03)
[2020-06-27] MEDS ORDERED: VANCOMYCIN LEVEL IV ONE (10:30)
[2020-06-27 11:00] VITALS: BP 120/72
[2020-06-27 16:11] VITALS: BP 117/56
[2020-06-27 18:00] VITALS: BP 129/69
--- NOTE | 2020-06-27 18:20 | NUR ---
Problems reprioritized. Patient report given, questions answered & plan of care reviewed with SHARON VU.
--- NOTE | 2020-06-27 18:54 | NUR ---
Patient in room PCU 3012. I have received report from Priscilla VU and had the opportunity to ask questions and assume patient care.
[2020-06-27] MEDS: traZODone 50mg tablet PO SCH (20:02)
[2020-06-27] MEDS: quetiapine 100mg tablet PO SCH (20:03)
[2020-06-27 22:00] VITALS: BP 116/58
[2020-06-28] MEDS: albuterol 2.5 MG/3 ML nebule NEB SCH ×4 (02:00→20:16)
--- NOTE | 2020-06-28 06:29 | NUR ---
Patient in room PCU 3012. I have received report from Xavier VU and had the opportunity to ask questions and assume patient care.
--- NOTE | 2020-06-28 06:30 | NUR ---
Problems reprioritized. Patient report given, questions answered & plan of care reviewed with NYLA VU.
[2020-06-28] MEDS: budesonide 0.5mg/2ml UD nebule IH SCH ×2 (07:18→20:16)
[2020-06-28] MEDS: K and/or MAG REPLACEMENT MC SCH ×2 (08:00→20:00)
[2020-06-28] MEDS: heparin, porcine 5000 units/ml vial SQ SCH ×2 (08:00→20:21)
[2020-06-28] MEDS: gabapentin 300mg capsule PO SCH ×3 (08:00→20:19)
[2020-06-28] MEDS: fluticasone nasal spray 16GM bottle NS SCH (08:00)
[2020-06-28] MEDS: baclofen 10mg tablet PO SCH ×2 (08:00→20:20)
[2020-06-28] MEDS: propranolol 10mg tablet PO SCH ×5 (08:00→21:49)
[2020-06-28] MEDS: duloxetine 30mg CAPSULE.DR PO SCH (08:33)
[2020-06-28] MEDS: phenazopyridine 100mg tablet PO SCH ×3 (08:33→19:03)
[2020-06-28] MEDS: lactobacillus rhamnosus 10,000 MMU CELLS/CAPSULE PO SCH ×2 (08:33→20:20)
[2020-06-28] MEDS: calcium carbonate 500mg tablet PO SCH ×2 (08:33→20:19)
[2020-06-28] MEDS: pantoprazole 40mg Tablet.DR PO SCH (08:35)
[2020-06-28] MEDS: CefTRIAXone/D5W-Rocephin 1gm 50 ML IV SCH (08:42)
[2020-06-28] MEDS: nicotine 21mg patch - 24 hr TD SCH (08:53)
[2020-06-28 09:13] LABS: BASOPHILS % (AUTO) 0.7 % (0-1); EOSINOPHILS # (AUTO) 0.1 X10'3 (0-0.9); EOSINOPHILS % (AUTO) 2.5 % (0-6); HEMATOCRIT 33.9 % (35.0-45.0); HEMOGLOBIN 11.4 g/dl (12.0-16.0); LYMPHOCYTES # (AUTO) 1.9 X10'3 (1.1-4.8); LYMPHOCYTES % (AUTO) 35.3 % (21-51); MEAN CORPUSCULAR HEMOGLOBIN 31.6 PG (27.0-31.0); MEAN CORPUSCULAR HGB CONC 33.6 g/dL (33.0-36.5); MEAN CORPUSCULAR VOLUME 94.1 FL (78-98); MEAN PLATELET VOLUME 8.2 FL (7.4-10.4); MONOCYTES # (AUTO) 0.7 X10'3 (0-0.9); MONOCYTES % (AUTO) 12.3 % (2-12); NEUTROPHILS # (AUTO) 2.7 X10'3 (1.8-7.7); NEUTROPHILS % (AUTO) 49.2 % (42-75); PLATELET COUNT 219 X10'3 (140-440); RED CELL DISTRIBUTION WIDTH 13.6 % (11.5-14.5); WHITE BLOOD COUNT 5.5 X10'3 (4.5-11.0)
[2020-06-28 09:36] LABS: ANION GAP 8 (8-16); BLOOD UREA NITROGEN 22 MG/DL (7-18); BUN/CREATININE RATIO 18.2 (6.6-38.0); CALCIUM 8.8 MG/DL (8.5-10.1); CHLORIDE 108 MMOL/L (99-107); CREATININE 1.21 MG/DL (0.40-0.90); GLUCOSE 89 MG/DL (70-104); PHOSPHORUS 3.7 MG/DL (2.3-4.5); POTASSIUM 4.1 MMOL/L (3.5-5.1); SODIUM 143 MMOL/L (135-145); TOTAL CARBON DIOXIDE 27.3 MMOL/L (24-32); eGFR 45 ML/MIN
[2020-06-28 09:37] LABS: ALANINE AMINOTRANSFERASE 22 U/L (12-78); ALBUMIN 3.4 G/DL (3.4-5.0); ALKALINE PHOSPHATASE 64 IU/L (46-116); ASPARTATE AMINO TRANSFERASE 27 U/L (10-37); BILIRUBIN,TOTAL 0.3 MG/DL (0.1-1.0); TOTAL PROTEIN 6.9 G/DL (6.4-8.2)
--- NOTE | 2020-06-28 12:26 | NUR ---
Initial: Pt admit w/ ALOC DX metabolic and toxic encephalopathy, UTI, R ankle fx, anemia, bacteremia, and significant psych hx bipolar possible schizophrenia per MD note. R toe blister present otherwise skin intact. Pt PO 75-100% avg heart healthy diet meeting needs. LBM 06/25. No nutrition concerns at this time. Will continue to monitor. Rec: 1. continue heart healthy diet 2. routine bowel care 3. wt per rx Addendum: 06/28/20 at [address] Amended: Links added.
[2020-06-28 14:29] VITALS: BP 97/59
[2020-06-28] MEDS: clonazePAM 1mg tablet PO PRN (14:44)
--- NOTE | 2020-06-28 18:20 | NUR ---
Patient in room PCU 3012. I have received report from Carolina VU and had the opportunity to ask questions and assume patient care.
--- NOTE | 2020-06-28 18:26 | NUR ---
Problems reprioritized. Patient report given, questions answered & plan of care reviewed with KWAME.
[2020-06-28] MEDS: quetiapine 100mg tablet PO SCH (20:19)
[2020-06-28] MEDS: HYDROcodone/acetaminophen 10/325mg tab PO PRN (20:20)
[2020-06-28] MEDS: traZODone 50mg tablet PO SCH (20:20)
[2020-06-28 22:00] VITALS: BP 115/82
[2020-06-29 02:00] VITALS: BP 91/54
[2020-06-29] MEDS: albuterol 2.5 MG/3 ML nebule NEB SCH ×4 (02:00→20:10)
--- NOTE | 2020-06-29 06:12 | NUR ---
Problems reprioritized. Patient report given, questions answered & plan of care reviewed with Farnaz VU.
--- NOTE | 2020-06-29 06:37 | NUR ---
Patient in room PCU 3012. I have received report from Karolina VU and had the opportunity to ask questions and assume patient care. Patient in bed and asleep. In no acute distress. All immediate needs met at this time.
[2020-06-29 07:00] VITALS: BP 106/61
[2020-06-29] MEDS: budesonide 0.5mg/2ml UD nebule IH SCH ×2 (07:56→20:10)
[2020-06-29] MEDS: K and/or MAG REPLACEMENT MC SCH ×2 (08:00→20:00)
[2020-06-29] MEDS: CefTRIAXone/D5W-Rocephin 1gm 50 ML IV SCH (08:56)
[2020-06-29] MEDS: pantoprazole 40mg Tablet.DR PO SCH (08:57)
[2020-06-29] MEDS: HYDROcodone/acetaminophen 10/325mg tab PO PRN ×3 (08:57→20:46)
[2020-06-29] MEDS: nicotine 21mg patch - 24 hr TD SCH (08:57)
[2020-06-29] MEDS: phenazopyridine 100mg tablet PO SCH ×3 (08:57→17:29)
[2020-06-29] MEDS: calcium carbonate 500mg tablet PO SCH ×2 (08:59→20:46)
[2020-06-29] MEDS: heparin, porcine 5000 units/ml vial SQ SCH ×2 (08:59→20:47)
[2020-06-29] MEDS: lactobacillus rhamnosus 10,000 MMU CELLS/CAPSULE PO SCH ×2 (08:59→20:46)
[2020-06-29] MEDS: gabapentin 300mg capsule PO SCH ×3 (08:59→20:46)
[2020-06-29] MEDS: duloxetine 30mg CAPSULE.DR PO SCH (09:00)
[2020-06-29] MEDS: fluticasone nasal spray 16GM bottle NS SCH (09:00)
[2020-06-29] MEDS: propranolol 10mg tablet PO SCH ×5 (09:00→20:46)
[2020-06-29] MEDS: baclofen 10mg tablet PO SCH ×2 (09:02→20:46)
[2020-06-29 10:21] LABS: BASOPHILS % (AUTO) 0.7 % (0-1); EOSINOPHILS # (AUTO) 0.2 X10'3 (0-0.9); EOSINOPHILS % (AUTO) 3.2 % (0-6); HEMATOCRIT 31.3 % (35.0-45.0); HEMOGLOBIN 10.4 g/dl (12.0-16.0); LYMPHOCYTES # (AUTO) 1.8 X10'3 (1.1-4.8); LYMPHOCYTES % (AUTO) 33.7 % (21-51); MEAN CORPUSCULAR HEMOGLOBIN 30.8 PG (27.0-31.0); MEAN CORPUSCULAR HGB CONC 33.3 g/dL (33.0-36.5); MEAN CORPUSCULAR VOLUME 92.5 FL (78-98); MEAN PLATELET VOLUME 8.3 FL (7.4-10.4); MONOCYTES # (AUTO) 0.6 X10'3 (0-0.9); MONOCYTES % (AUTO) 10.7 % (2-12); NEUTROPHILS # (AUTO) 2.8 X10'3 (1.8-7.7); NEUTROPHILS % (AUTO) 51.7 % (42-75); PLATELET COUNT 222 X10'3 (140-440); RED BLOOD COUNT 3.39 X10'6 (4.20-5.60); RED CELL DISTRIBUTION WIDTH 13.5 % (11.5-14.5); WHITE BLOOD COUNT 5.4 X10'3 (4.5-11.0)
[2020-06-29 10:51] LABS: ALANINE AMINOTRANSFERASE 22 U/L (12-78); ALBUMIN 3.3 G/DL (3.4-5.0); ALBUMIN/GLOBULIN RATIO 0.9 (1.1-1.5); ALKALINE PHOSPHATASE 63 IU/L (46-116); ANION GAP 9 (8-16); ASPARTATE AMINO TRANSFERASE 17 U/L (10-37); BILIRUBIN,TOTAL 0.2 MG/DL (0.1-1.0); BLOOD UREA NITROGEN 37 MG/DL (7-18); BUN/CREATININE RATIO 24.2 (6.6-38.0); CALCIUM 8.7 MG/DL (8.5-10.1); CHLORIDE 107 MMOL/L (99-107); CREATININE 1.53 MG/DL (0.40-0.90); GLUCOSE 122 MG/DL (70-104); POTASSIUM 4.5 MMOL/L (3.5-5.1); SODIUM 140 MMOL/L (135-145); TOTAL CARBON DIOXIDE 23.6 MMOL/L (24-32); TOTAL PROTEIN 6.8 G/DL (6.4-8.2); eGFR 34 ML/MIN
[2020-06-29 11:00] VITALS: BP 133/81
[2020-06-29] MEDS: clonazePAM 1mg tablet PO PRN (13:17)
[2020-06-29] MEDS: morphine 2 MG/ML inj. syringe IV PRN (15:55)
[2020-06-29 18:00] VITALS: BP 133/81
--- NOTE | 2020-06-29 18:08 | NUR ---
Orientee documentation: I have reviewed and agree with all interventions, assessments performed and documented by HORACE Solis. Orientee Medication Administration: For this medication-pass time frame, all medication were reviewed, dispensed, administered and documented per hospital policy by HORACE Solis.
--- NOTE | 2020-06-29 18:15 | NUR ---
Problems reprioritized. Patient report given, questions answered & plan of care reviewed with HORACE Turcios. Patient stable at transfer of care.
--- NOTE | 2020-06-29 18:15 | NUR ---
Problems reprioritized. Patient report given, questions answered & plan of care reviewed with Ave VU. Patient stable at transfer of care.
[2020-06-29] MEDS: traZODone 50mg tablet PO SCH (20:46)
[2020-06-29] MEDS: quetiapine 100mg tablet PO SCH (20:46)
--- NOTE | 2020-06-29 21:25 | NUR ---
Patient in room PCU 3012. I have received report from Farnaz VU and had the opportunity to ask questions and assume patient care.
[2020-06-29 22:00] VITALS: BP_SYST 133; BP_SYST 84; BP_DIAS 43; BP_DIAS 81
--- NOTE | 2020-06-29 22:43 | NUR ---
Paged Dr. Luna RE Bethany Combs 64F; admit Dx right foot fracture, UTI, altered mental status; BP 84/43. Would you like me to give a bolus? Thanks, Ave VU [phone]
[2020-06-29] MEDS ORDERED: normal saline 1000ml 1,000 ML IV ONE (22:45)
[2020-06-30] MEDS: normal saline 1000ml 1,000 ML IV SCH ×2 (00:04→11:26)
[2020-06-30 02:00] VITALS: BP 86/52
[2020-06-30] MEDS: albuterol 2.5 MG/3 ML nebule NEB SCH ×3 (02:36→15:02)
--- NOTE | 2020-06-30 03:21 | NUR ---
Paged Dr. Luna RE Bethany Combs 64F; FYI, BP still only 86/52 after 1000ml bolus and 100ml/hr fluids running. HR is 63. Ave VU [phone]
--- NOTE | 2020-06-30 06:03 | NUR ---
Problems reprioritized. Patient report given, questions answered & plan of care reviewed with Farnaz VU.
--- NOTE | 2020-06-30 06:30 | NUR ---
Patient in room PCU 3012. I have received report from Karolina VU and had the opportunity to ask questions and assume patient care.
--- NOTE | 2020-06-30 06:58 | NUR ---
Patient in room PCU 3012. I have received report from Ave VU and had the opportunity to ask questions and assume patient care.
[2020-06-30 07:00] VITALS: BP 95/45
[2020-06-30] MEDS: K and/or MAG REPLACEMENT MC SCH (08:00)
[2020-06-30] MEDS: propranolol 10mg tablet PO SCH ×2 (08:00→13:00)
[2020-06-30] MEDS: CefTRIAXone/D5W-Rocephin 1gm 50 ML IV SCH (08:39)
[2020-06-30] MEDS: fluticasone nasal spray 16GM bottle NS SCH (08:39)
[2020-06-30] MEDS: nicotine 21mg patch - 24 hr TD SCH (08:40)
[2020-06-30] MEDS: phenazopyridine 100mg tablet PO SCH ×2 (08:41→13:33)
[2020-06-30] MEDS: heparin, porcine 5000 units/ml vial SQ SCH (08:41)
[2020-06-30] MEDS: pantoprazole 40mg Tablet.DR PO SCH (08:42)
[2020-06-30] MEDS: gabapentin 300mg capsule PO SCH (08:42)
[2020-06-30] MEDS: duloxetine 30mg CAPSULE.DR PO SCH (08:42)
[2020-06-30] MEDS: baclofen 10mg tablet PO SCH (08:42)
[2020-06-30] MEDS: lactobacillus rhamnosus 10,000 MMU CELLS/CAPSULE PO SCH (08:43)
[2020-06-30] MEDS: calcium carbonate 500mg tablet PO SCH (08:43)
[2020-06-30] MEDS: HYDROcodone/acetaminophen 10/325mg tab PO PRN ×2 (08:43→13:34)
[2020-06-30] MEDS: budesonide 0.5mg/2ml UD nebule IH SCH (08:54)
[2020-06-30 11:00] VITALS: BP 117/40
[2020-06-30] MEDS: morphine 2 MG/ML inj. syringe IV PRN (11:40)
[2020-06-30] MEDS ORDERED: HYDR-3964 PO (12:13)
[2020-06-30] MEDS ORDERED: CEFD300C3 PO (12:13)
[2020-06-30] MEDS ORDERED: PROP10TA10 PO (12:18)
[2020-06-30] MEDS ORDERED: ATOR20TA PO (12:20)
[2020-06-30 15:00] VITALS: BP 99/46
--- NOTE | 2020-06-30 17:10 | NUR ---
Patient is stable for discharge per MD orders. All discharge instructions reviewed with patient and all questions answered. Patients medications retrieved from pharmacy. Hard copy prescription sent with patient. PIV discontinued canula intact. certified orthotic fitter discontinued. Belongings collected and sent with patient. Patient wheeled to the lobby by [employer] [facility] home mother. Cab pick patient up.
[2020-06-30] MEDS ORDERED: gabapentin 400mg capsule PO SCH (20:00)
--- NOTE | 2020-07-01 13:30 | NUR ---
CASE MANAGEMENT DISCHARGE FOLLOW UP: Attempt to contact pt via phone number provided, voicemail is for a "Sesar," message not left. Unable to contact patient.
== END 2020-06-30 18:00 | disposition home health service (06) | DRG 342 ==
LOC: ER 08:35 → ED HOLD 16:03 → PCU 3S 20:00
PROVIDERS: ADMIT Family Medicine; ATTEND Family Medicine
DX: S82.891A Other fracture of right lower leg, initial encounter for closed fracture (principal); D64.9 Anemia, unspecified; E78.5 Hyperlipidemia, unspecified; E87.0 Hyperosmolality and hypernatremia; F15.90 Other stimulant use, unspecified, uncomplicated; F20.9 Schizophrenia, unspecified; F31.9 Bipolar disorder, unspecified; G93.41 Metabolic encephalopathy; J44.9 Chronic obstructive pulmonary disease, unspecified; L03.031 Cellulitis of right toe; W01.0XXA Fall on same level from slipping, tripping and stumbling without subsequent striking against object, initial encounter; N17.9 Acute kidney failure, unspecified; N18.9 Chronic kidney disease, unspecified; F41.9 Anxiety disorder, unspecified; N39.0 Urinary tract infection, site not specified; G89.29 Other chronic pain; F17.200 Nicotine dependence, unspecified, uncomplicated; Z91.19 Patient's noncompliance with other medical treatment and regimen; Z59.0 Homelessness; Z79.899 Other long term (current) drug therapy; Y93.89 Activity, other specified; Y92.89 Other specified places as the place of occurrence of the external cause; Y99.8 Other external cause status
CPT/HCPCS: 36415; 70450; 71045; 73630; 73700; 80053; 80061; 80305; 80320; 80329; 81001; 83036; 83605; 83735; 84100; 84443; 84484; 85025; 86870; 86885; 86900; 86901; 86902; 86905; 87040; 87077; 87081; 87088; 87186; 93005; 93306; 94640; 94760; 96374; 97116; 97161; 97530; 99285; G0378; J0696; J1644; J2270; J2405; J3370; J7030; J7626; Q0163

== ENCOUNTER 2020-08-11 16:57 | Inpatient (IN) | payer MEDICAID ==
[~2020-08-11] VITALS: Ht 157.5 cm; Wt 68.0 kg
[~2020-08-11 16:57] MED LIST changes: +BACL20TA2 PO; +CLON-371 PO; +HYDR-3964 PO; +MECL-159 PO; -PROP20TA6 PO
[2020-08-11] MEDS ORDERED: LIDOcaine 2% 10ml TOPICAL JELLY (Urojet) TP ONE (17:55)
[2020-08-11] MEDS ORDERED: normal saline 1000ml 1,000 ML IV STA (18:05)
--- NOTE | 2020-08-11 18:06 | NUR ---
patient placed on a bear hugger and used fluid warmer while giving fluid bolus.
--- NOTE | 2020-08-11 18:15 | NUR ---
1800ml out from [facility].
[2020-08-11 18:20] LABS: CLARITY,URINE SLIGHTLY CLOUDY (Clear); COLOR,URINE YELLOW (Yellow); GLUCOSE, URINE NEGATIVE (Neg); KETONES,URINE NEGATIVE (Neg); LEUKOCYTE ESTERASE ,URINE SMALL (Neg); NITRITES, URINE NEGATIVE (Neg); OCCULT BLOOD,URINE NEGATIVE (Neg); PROTEIN,URINE NEGATIVE (Neg); UROBILINOGEN,URINE 0.2 E.U/dL (0.2-1.0)
[2020-08-11 18:21] LABS: UA COLLECTION TYPE CLN CATCH MIDSTREAM
[2020-08-11 18:28] LABS: URINE AMPHETAMINE SCREEN NEGATIVE (Neg); URINE BARBITUATE SCREEN NEGATIVE (Neg); URINE BENZODIAZEPINES SCREEN NEGATIVE (Neg); URINE CANNABINOID SCREEN NEGATIVE (Neg); URINE COCAINE SCREEN NEGATIVE (Neg); URINE METHADONE SCREEN NEGATIVE (Neg); URINE OPIATE SCREEN NEGATIVE (Neg); URINE PHENCYCLIDINE SCREEN NEGATIVE (Neg)
[2020-08-11 18:30] LABS: BACTERIA,URINE FEW /HPF (Neg); RBC,URINE NONE SEEN /HPF (0-2); SQUAMOUS EPITHELIAL CELL,UR MODERATE /LPF (FEW); WBC,URINE 0-4 /HPF (0-4)
[2020-08-11 19:04] LABS: BASOPHILS % (AUTO) 0.1 % (0-1); EOSINOPHILS # (AUTO) 0.1 X10'3 (0-0.9); EOSINOPHILS % (AUTO) 0.5 % (0-6); HEMATOCRIT 35.1 % (35.0-45.0); HEMOGLOBIN 11.7 g/dl (12.0-16.0); LYMPHOCYTES # (AUTO) 0.6 X10'3 (1.1-4.8); LYMPHOCYTES % (AUTO) 5.2 % (21-51); MEAN CORPUSCULAR HEMOGLOBIN 30.8 PG (27.0-31.0); MEAN CORPUSCULAR HGB CONC 33.3 g/dL (33.0-36.5); MEAN CORPUSCULAR VOLUME 92.5 FL (78-98); MEAN PLATELET VOLUME 8.4 FL (7.4-10.4); MONOCYTES # (AUTO) 0.5 X10'3 (0-0.9); MONOCYTES % (AUTO) 4.2 % (2-12); NEUTROPHILS # (AUTO) 10.3 X10'3 (1.8-7.7); PLATELET COUNT 191 X10'3 (140-440); RED CELL DISTRIBUTION WIDTH 13.7 % (11.5-14.5); WHITE BLOOD COUNT 11.4 X10'3 (4.5-11.0)
--- NOTE | 2020-08-11 19:08 | NUR ---
patient reacting to light painful stemuli, not answering to voice or commands at this time, able to maintain own airway, airway observably patent, going to ct
--- NOTE | 2020-08-11 19:10 | NUR ---
500 ml output urine
[2020-08-11 19:19] LABS: ALANINE AMINOTRANSFERASE 16 U/L (12-78); ALBUMIN 3.1 G/DL (3.4-5.0); ALKALINE PHOSPHATASE 61 IU/L (46-116); ANION GAP 7 (8-16); ASPARTATE AMINO TRANSFERASE 21 U/L (10-37); BILIRUBIN,TOTAL 0.3 MG/DL (0.1-1.0); BLOOD UREA NITROGEN 21 MG/DL (7-18); BUN/CREATININE RATIO 23.1 (6.6-38.0); CALCIUM 9.6 MG/DL (8.5-10.1); CHLORIDE 112 MMOL/L (99-107); CREATINE KINASE 261 U/L (26-192); CREATININE 0.91 MG/DL (0.40-0.90); GLUCOSE 106 MG/DL (70-104); POTASSIUM 4.3 MMOL/L (3.5-5.1); SODIUM 144 MMOL/L (135-145); TOTAL CARBON DIOXIDE 25.2 MMOL/L (24-32); TOTAL PROTEIN 6.3 G/DL (6.4-8.2); eGFR 63 ML/MIN
--- NOTE | 2020-08-11 20:14 | NUR ---
UNABLE TO OBTAIN ANY CURRENT MEDICATION LIST. MED REC PARTIALLY ADDRESSED USING EXTERNAL MED HX RECENT PERSCRIPTIONS.
[2020-08-11] MEDS ORDERED: PROP10TA10 PO (20:21)
[2020-08-11] MEDS ORDERED: ATOR20TA66 PO (20:21)
[2020-08-11] MEDS ORDERED: UNABLE TO OBTAIN (20:23)
[2020-08-11] MEDS ORDERED: HYDROcodone/acetaminophen 5mg/325mg tablet PO PRN (20:50)
[2020-08-11] MEDS ORDERED: potassium Cl 40MEQ/1/2NS 520ml 520 ML IV PRN ×2 (20:50)
[2020-08-11] MEDS ORDERED: potassium Cl 20 mEq SR tablet PO PRN ×2 (20:50)
[2020-08-11] MEDS ORDERED: mag hydrox/Alum hydrox/simeth 30ml oral suspension PO PRN (20:50)
[2020-08-11] MEDS ORDERED: ondansetron/PF 4mg/2ml inj IV PRN (20:50)
[2020-08-11] MEDS ORDERED: magnesium hydroxide 30ml (MOM) UD suspension PO PRN (20:50)
[2020-08-11] MEDS ORDERED: magnesium 2GM in 50ml NS 50 ML IV PRN (20:50)
[2020-08-11] MEDS ORDERED: magnesium 4gm in 100ml NS 100 ML IV PRN (20:50)
[2020-08-11] MEDS ORDERED: magnesium Cl slow-release 64mg tablet PO PRN (20:50)
[2020-08-11] MEDS ORDERED: acetaminophen 325mg tablet PO PRN ×2 (20:50)
--- NOTE | 2020-08-11 21:45 | NUR ---
RECEIVED PATIENT FROM MARY VU AND ASSUMED PATIENT CARE. PATIENT SPONTANEOUSLY OPENS EYES AND WILL TELL ME HER NAME BUT DOES NOT RESPOND TO ANY ADDITIONAL QUESTIONS. EASILY FALLS IN AND OUT OF SLEEP.
[2020-08-11] MEDS: potassium cl 20mEq in 1/2 NS 1,000 ML IV SCH (21:50)
[2020-08-11 22:00] VITALS: BP 149/57
[2020-08-11] MEDS: propranolol 10mg tablet PO SCH (22:22)
[2020-08-11] MEDS: atorvastatin 20mg tablet PO SCH (22:22)
[2020-08-11] MEDS: traZODone 50mg tablet PO SCH (22:22)
[2020-08-11] MEDS: quetiapine 100mg tablet PO SCH (22:22)
[2020-08-12] MEDS: clonazePAM 1mg tablet PO PRN ×2 (01:03→07:45)
[2020-08-12 02:00] VITALS: BP 145/84
--- NOTE | 2020-08-12 06:40 | NUR ---
Received report from Mis VU
[2020-08-12 06:47] VITALS: BP 154/66
[2020-08-12] MEDS: potassium cl 20mEq in 1/2 NS 1,000 ML IV SCH ×2 (06:59→16:50)
[2020-08-12 07:37] LABS: BASOPHILS % (AUTO) 0.1 % (0-1); EOSINOPHILS # (AUTO) 0.2 X10'3 (0-0.9); EOSINOPHILS % (AUTO) 1.4 % (0-6); HEMATOCRIT 31.9 % (35.0-45.0); HEMOGLOBIN 10.8 g/dl (12.0-16.0); LYMPHOCYTES # (AUTO) 1.2 X10'3 (1.1-4.8); LYMPHOCYTES % (AUTO) 10.7 % (21-51); MEAN CORPUSCULAR HGB CONC 33.8 g/dL (33.0-36.5); MEAN CORPUSCULAR VOLUME 91.9 FL (78-98); MONOCYTES # (AUTO) 0.5 X10'3 (0-0.9); MONOCYTES % (AUTO) 4.9 % (2-12); NEUTROPHILS # (AUTO) 9.1 X10'3 (1.8-7.7); NEUTROPHILS % (AUTO) 82.9 % (42-75); PLATELET COUNT 176 X10'3 (140-440); RED BLOOD COUNT 3.47 X10'6 (4.20-5.60); RED CELL DISTRIBUTION WIDTH 13.5 % (11.5-14.5)
[2020-08-12] MEDS: docusate sod 100mg capsule PO SCH ×2 (07:42→20:00)
[2020-08-12] MEDS: quetiapine 100mg tablet PO SCH ×2 (07:42→20:57)
[2020-08-12] MEDS: propranolol 10mg tablet PO SCH ×4 (07:42→20:57)
[2020-08-12 07:52] LABS: ALANINE AMINOTRANSFERASE 22 U/L (12-78); ALBUMIN 3.3 G/DL (3.4-5.0); ALKALINE PHOSPHATASE 70 IU/L (46-116); ANION GAP 10 (8-16); ASPARTATE AMINO TRANSFERASE 28 U/L (10-37); BILIRUBIN,TOTAL 0.2 MG/DL (0.1-1.0); BLOOD UREA NITROGEN 16 MG/DL (7-18); BUN/CREATININE RATIO 15.7 (6.6-38.0); CHLORIDE 110 MMOL/L (99-107); CREATININE 1.02 MG/DL (0.40-0.90); GLUCOSE 90 MG/DL (70-104); MAGNESIUM 1.7 MG/DL (1.5-2.4); POTASSIUM 4.5 MMOL/L (3.5-5.1); SODIUM 141 MMOL/L (135-145); TOTAL CARBON DIOXIDE 20.9 MMOL/L (24-32); TOTAL PROTEIN 6.6 G/DL (6.4-8.2); eGFR 55 ML/MIN
[2020-08-12] MEDS: K and/or MAG REPLACEMENT MC SCH ×2 (08:00→20:00)
[2020-08-12 08:15] LABS: CALCIUM 9.4 MG/DL (8.5-10.1)
--- NOTE | 2020-08-12 18:18 | NUR ---
RECEIVED REPORT FROM DEMETRIA VU AND ASSUMED PATIENT CARE
[2020-08-12 18:19] VITALS: BP 150/83
[2020-08-12] MEDS: atorvastatin 20mg tablet PO SCH (20:56)
[2020-08-12] MEDS: traZODone 50mg tablet PO SCH (20:56)
[2020-08-12 21:59] VITALS: BP 148/83
[2020-08-12 22:00] VITALS: BP 108/83
[2020-08-12] MEDS ORDERED: CefTRIAXone/D5W-Rocephin 1gm 50 ML IV SCH (22:30)
[2020-08-13] MEDS: potassium cl 20mEq in 1/2 NS 1,000 ML IV SCH ×2 (02:50→08:16)
[2020-08-13 06:42] VITALS: BP 132/63
[2020-08-13] MEDS: K and/or MAG REPLACEMENT MC SCH (08:00)
[2020-08-13 08:11] LABS: BASOPHILS % (AUTO) 0.3 % (0-1); EOSINOPHILS # (AUTO) 0.2 X10'3 (0-0.9); EOSINOPHILS % (AUTO) 2.7 % (0-6); HEMATOCRIT 33.2 % (35.0-45.0); HEMOGLOBIN 11.2 g/dl (12.0-16.0); LYMPHOCYTES # (AUTO) 1.8 X10'3 (1.1-4.8); LYMPHOCYTES % (AUTO) 20.1 % (21-51); MEAN CORPUSCULAR HEMOGLOBIN 30.9 PG (27.0-31.0); MEAN CORPUSCULAR HGB CONC 33.9 g/dL (33.0-36.5); MEAN CORPUSCULAR VOLUME 91.2 FL (78-98); MEAN PLATELET VOLUME 8.6 FL (7.4-10.4); MONOCYTES # (AUTO) 0.6 X10'3 (0-0.9); MONOCYTES % (AUTO) 6.6 % (2-12); NEUTROPHILS # (AUTO) 6.2 X10'3 (1.8-7.7); NEUTROPHILS % (AUTO) 70.3 % (42-75); PLATELET COUNT 200 X10'3 (140-440); RED BLOOD COUNT 3.64 X10'6 (4.20-5.60); RED CELL DISTRIBUTION WIDTH 13.4 % (11.5-14.5); WHITE BLOOD COUNT 8.8 X10'3 (4.5-11.0)
[2020-08-13] MEDS: quetiapine 100mg tablet PO SCH (08:15)
[2020-08-13] MEDS: docusate sod 100mg capsule PO SCH (08:15)
[2020-08-13] MEDS: propranolol 10mg tablet PO SCH (08:16)
[2020-08-13 08:36] LABS: ALANINE AMINOTRANSFERASE 22 U/L (12-78); ALBUMIN 3.3 G/DL (3.4-5.0); ALKALINE PHOSPHATASE 66 IU/L (46-116); ANION GAP 10 (8-16); ASPARTATE AMINO TRANSFERASE 28 U/L (10-37); BILIRUBIN,TOTAL 0.2 MG/DL (0.1-1.0); BLOOD UREA NITROGEN 15 MG/DL (7-18); BUN/CREATININE RATIO 13.9 (6.6-38.0); CALCIUM 9.2 MG/DL (8.5-10.1); CHLORIDE 107 MMOL/L (99-107); CREATININE 1.08 MG/DL (0.40-0.90); GLUCOSE 81 MG/DL (70-104); MAGNESIUM 1.8 MG/DL (1.5-2.4); POTASSIUM 4.5 MMOL/L (3.5-5.1); SODIUM 139 MMOL/L (135-145); TOTAL CARBON DIOXIDE 22.2 MMOL/L (24-32); TOTAL PROTEIN 6.7 G/DL (6.4-8.2); eGFR 51 ML/MIN
--- NOTE | 2020-08-13 09:34 | NUR ---
Pt's PIV x 2 dc'd.
[2020-08-13 09:40] VITALS: BP 137/73
[2020-08-13] MEDS: clonazePAM 1mg tablet PO PRN (10:04)
== END 2020-08-13 10:14 | disposition home health service (06) | DRG 52 ==
LOC: ER 16:58 → ED HOLD 20:50 → ORTHO 4S 21:45
PROVIDERS: ADMIT Internal Medicine; ATTEND Internal Medicine
DX: G92 Toxic encephalopathy (principal); R68.0 Hypothermia, not associated with low environmental temperature; F03.90 Unspecified dementia, unspecified severity, without behavioral disturbance, psychotic disturbance, mood disturbance, and anxiety; I49.9 Cardiac arrhythmia, unspecified; J40 Bronchitis, not specified as acute or chronic; J44.9 Chronic obstructive pulmonary disease, unspecified; Z87.440 Personal history of urinary (tract) infections; M54.9 Dorsalgia, unspecified; F41.9 Anxiety disorder, unspecified; F31.9 Bipolar disorder, unspecified; F17.210 Nicotine dependence, cigarettes, uncomplicated; Z59.0 Homelessness; F15.90 Other stimulant use, unspecified, uncomplicated; E78.5 Hyperlipidemia, unspecified; F20.9 Schizophrenia, unspecified; Z79.899 Other long term (current) drug therapy
CPT/HCPCS: 36415; 70450; 71045; 76937; 80053; 80305; 81001; 82550; 83605; 83735; 83880; 84145; 85025; 87040; 87077; 87081; 87088; 87186; 93005; 96365; 99285; G0378; J0696; J3480; J7030

== ENCOUNTER 2020-09-16 20:51 | Inpatient (IN) | payer MEDICAID ==
[~2020-09-16] VITALS: Ht 162.6 cm; Wt 68.0 kg
[~2020-09-16 20:51] MED LIST changes: +ATOR20TA66 PO; -LORA10TA7 PO; -MECL-159 PO; +PROP10TA10 PO
[2020-09-16 22:13] LABS: BASOPHILS # (AUTO) 0.1 X10'3 (0-0.2); BASOPHILS % (AUTO) 0.6 % (0-1); EOSINOPHILS % (AUTO) 0.1 % (0-6); HEMATOCRIT 36.8 % (35.0-45.0); HEMOGLOBIN 12.1 g/dl (12.0-16.0); LYMPHOCYTES # (AUTO) 0.5 X10'3 (1.1-4.8); LYMPHOCYTES % (AUTO) 3.1 % (21-51); MEAN CORPUSCULAR HEMOGLOBIN 30.2 PG (27.0-31.0); MEAN CORPUSCULAR HGB CONC 32.8 g/dL (33.0-36.5); MEAN CORPUSCULAR VOLUME 91.8 FL (78-98); MEAN PLATELET VOLUME 8.3 FL (7.4-10.4); MONOCYTES # (AUTO) 0.8 X10'3 (0-0.9); MONOCYTES % (AUTO) 4.7 % (2-12); NEUTROPHILS # (AUTO) 15.9 X10'3 (1.8-7.7); NEUTROPHILS % (AUTO) 91.5 % (42-75); PLATELET COUNT 247 X10'3 (140-440); RED BLOOD COUNT 4.01 X10'6 (4.20-5.60); RED CELL DISTRIBUTION WIDTH 13.3 % (11.5-14.5); WHITE BLOOD COUNT 17.4 X10'3 (4.5-11.0)
[2020-09-16 22:31] LABS: ALANINE AMINOTRANSFERASE 22 U/L (12-78); ALBUMIN 4.3 G/DL (3.4-5.0); ALBUMIN/GLOBULIN RATIO 1.2 (1.1-1.5); ALKALINE PHOSPHATASE 82 IU/L (46-116); ANION GAP 12 (8-16); ASPARTATE AMINO TRANSFERASE 35 U/L (10-37); BILIRUBIN,TOTAL 0.4 MG/DL (0.1-1.0); BLOOD UREA NITROGEN 14 MG/DL (7-18); BUN/CREATININE RATIO 9.6 (6.6-38.0); CALCIUM 10.2 MG/DL (8.5-10.1); CHLORIDE 108 MMOL/L (99-107); CREATININE 1.46 MG/DL (0.40-0.90); GLUCOSE 127 MG/DL (70-104); POTASSIUM 4.2 MMOL/L (3.5-5.1); SODIUM 146 MMOL/L (135-145); TOTAL CARBON DIOXIDE 25.8 MMOL/L (24-32); TOTAL PROTEIN 7.9 G/DL (6.4-8.2); eGFR 36 ML/MIN
[2020-09-16 22:34] LABS: ETHANOL < 0.010 GM/DL (0.0-0.010); TROPONIN I < 0.04 NG/ML (0.0-0.05)
[2020-09-16] MEDS ORDERED: normal saline 1000ml 1,000 ML IV ONE (22:50)
[2020-09-16] MEDS ORDERED: LORazepam 2 mg/ml vial IM ONE (23:10)
[2020-09-16] MEDS ORDERED: haloperidol lactate 5mg/ml inj IM ONE (23:10)
[2020-09-16] MEDS ORDERED: diphenhydrAMINE 50 mg/ml inj IM ONE (23:10)
[2020-09-16 23:21] LABS: CLARITY,URINE CLEAR (Clear); COLOR,URINE YELLOW (Yellow); GLUCOSE, URINE NEGATIVE (Neg); KETONES,URINE NEGATIVE (Neg); LEUKOCYTE ESTERASE ,URINE NEGATIVE (Neg); NITRITES, URINE NEGATIVE (Neg); OCCULT BLOOD,URINE NEGATIVE (Neg); PROTEIN,URINE NEGATIVE (Neg); UROBILINOGEN,URINE 0.2 E.U/dL (0.2-1.0)
[2020-09-16 23:27] LABS: UA COLLECTION TYPE STRAIGHT CATH; URINE AMPHETAMINE SCREEN NEGATIVE (Neg); URINE BARBITUATE SCREEN NEGATIVE (Neg); URINE BENZODIAZEPINES SCREEN NEGATIVE (Neg); URINE CANNABINOID SCREEN NEGATIVE (Neg); URINE COCAINE SCREEN NEGATIVE (Neg); URINE METHADONE SCREEN NEGATIVE (Neg); URINE OPIATE SCREEN NEGATIVE (Neg); URINE PHENCYCLIDINE SCREEN NEGATIVE (Neg)
[2020-09-17] MEDS ORDERED: normal saline 1000ml 1,000 ML IV ONE
--- NOTE | 2020-09-17 01:26 | NUR ---
PT ASLEEP. RESTRAINTS REMOVED. PT IS SNORING AND O2 SAT IN MID 80S. PT PLACED ON 2 L NC. O2 SATS INCREASED TO MID 90S. WILL CONTINUE TO MONITOR
--- NOTE | 2020-09-17 02:40 | NUR ---
PT CONTINUES TO BE TACHYCARDIC. MALIKA MCLAUGHLIN AWARE - ORDERED NEW EKG. PT CONTINUES TO BE ALOC
--- NOTE | 2020-09-17 07:00 | NUR ---
PT CONSTANTLY TRYING TO GET OUT OF BED. NEED A SITTER.
--- NOTE | 2020-09-17 07:15 | NUR ---
PT SCOOTER TO END OF GURNEY AND SLED TO GROUND. NO INJURY.
[2020-09-17] MEDS ORDERED: LORazepam 2 mg/ml vial IV ONE (07:45)
[2020-09-17] MEDS ORDERED: magnesium Cl slow-release 64mg tablet PO PRN (09:05)
[2020-09-17] MEDS ORDERED: acetaminophen 325mg tablet PO PRN (09:05)
[2020-09-17] MEDS ORDERED: magnesium 4gm in 100ml NS 100 ML IV PRN (09:05)
[2020-09-17] MEDS ORDERED: potassium Cl 20 mEq SR tablet PO PRN ×2 (09:05)
[2020-09-17] MEDS ORDERED: magnesium 2GM in 50ml NS 50 ML IV PRN (09:05)
[2020-09-17] MEDS ORDERED: potassium Cl 40MEQ/1/2NS 520ml 520 ML IV PRN ×2 (09:05)
[2020-09-17] MEDS ORDERED: ondansetron/PF 4mg/2ml inj IV PRN (09:05)
[2020-09-17] MEDS: normal saline 1000ml 1,000 ML IV SCH (09:05)
--- NOTE | 2020-09-17 12:32 | NUR ---
CALLED DR. ORTEGA TO UPDATE PTS CONDITION. PT CONFUSED, AND TRYING TO GET OUT OF BED ALL DAY. NEED A SITTER. PLEASE SEE NEW ORDERS.
[2020-09-17 12:55] LABS: BASOPHILS % (AUTO) 0.2 % (0-1); EOSINOPHILS % (AUTO) 0.3 % (0-6); HEMATOCRIT 35.5 % (35.0-45.0); HEMOGLOBIN 11.7 g/dl (12.0-16.0); LYMPHOCYTES # (AUTO) 1.4 X10'3 (1.1-4.8); LYMPHOCYTES % (AUTO) 8.8 % (21-51); MEAN CORPUSCULAR HEMOGLOBIN 30.5 PG (27.0-31.0); MEAN CORPUSCULAR VOLUME 92.5 FL (78-98); MEAN PLATELET VOLUME 8.3 FL (7.4-10.4); MONOCYTES # (AUTO) 0.7 X10'3 (0-0.9); MONOCYTES % (AUTO) 4.1 % (2-12); NEUTROPHILS % (AUTO) 86.6 % (42-75); PLATELET COUNT 230 X10'3 (140-440); RED BLOOD COUNT 3.83 X10'6 (4.20-5.60); RED CELL DISTRIBUTION WIDTH 13.3 % (11.5-14.5); WHITE BLOOD COUNT 16.1 X10'3 (4.5-11.0)
[2020-09-17 13:03] LABS: ANION GAP 13 (8-16); BLOOD UREA NITROGEN 11 MG/DL (7-18); BUN/CREATININE RATIO 9.7 (6.6-38.0); CALCIUM 9.7 MG/DL (8.5-10.1); CHLORIDE 110 MMOL/L (99-107); CREATININE 1.13 MG/DL (0.40-0.90); GLUCOSE 100 MG/DL (70-104); POTASSIUM 3.9 MMOL/L (3.5-5.1); SODIUM 147 MMOL/L (135-145); TOTAL CARBON DIOXIDE 24.5 MMOL/L (24-32); eGFR 49 ML/MIN
[2020-09-17] MEDS ORDERED: CHOL10006 PO (14:35)
--- NOTE | 2020-09-17 15:05 | NUR ---
received report from ED RN. Had opportunity to ask questions concerning Pt plan and care. Awaiting arrival of Pt to room 3012I.
--- NOTE | 2020-09-17 15:31 | NUR ---
Pt arrived to room 3014B. Vitals: 144/85, HR 94, RR 20, 98.2, 95% RA. Pt alert but not oriented. Will continue to monitor Pt as needed through out shift.
[2020-09-17 18:00] VITALS: BP 141/73
--- NOTE | 2020-09-17 18:00 | NUR ---
Patient in room PCU 3014. I have received report from Oli VU and had the opportunity to ask questions and assume patient care.
--- NOTE | 2020-09-17 18:00 | NUR ---
Patient in room PCU 3014. I have received report from Oli RN and Estella VU and had the opportunity to ask questions and assume patient care with Kell VU.
--- NOTE | 2020-09-17 18:14 | NUR ---
Problems reprioritized. Patient report given, questions answered & plan of care reviewed with HORACE Dawson and HORACE Clark.
--- NOTE | 2020-09-17 18:14 | NUR ---
Problems reprioritized. Patient report given, questions answered & plan of care reviewed with Kell VU and Amber Aden RN..
[2020-09-17] MEDS ORDERED: albuterol 2.5 MG/3 ML nebule NEB PRN (18:25)
[2020-09-17] MEDS ORDERED: ibuprofen tablet 400 MG TABLET PO PRN (18:25)
[2020-09-17] MEDS ORDERED: ALBUTEROL SULFATE PO PRN (18:25)
[2020-09-17 20:00] VITALS: BP_SYST 153; BP_SYST 171; BP_DIAS 87; BP_DIAS 90
[2020-09-17] MEDS: K and/or MAG REPLACEMENT MC SCH (20:00)
[2020-09-17] MEDS: budesonide 0.5mg/2ml UD nebule IH SCH (20:22)
[2020-09-17] MEDS: albuterol 2.5 MG/3 ML nebule NEB SCH (20:23)
[2020-09-17] MEDS: atorvastatin 20mg tablet PO SCH (21:17)
[2020-09-17] MEDS: calcium carbonate 500mg tablet PO SCH (21:18)
[2020-09-17] MEDS: propranolol 10mg tablet PO SCH (21:18)
[2020-09-17] MEDS: docusate sod 100mg capsule PO SCH (21:18)
[2020-09-17] MEDS: gabapentin 300mg capsule PO SCH (21:18)
[2020-09-17 22:05] VITALS: BP 153/87
[2020-09-18] VITALS (7 sets, daily range): BP systolic 143–191; BP diastolic 72–105
[2020-09-18] MEDS: albuterol 2.5 MG/3 ML nebule NEB SCH ×2 (02:32→07:58)
--- NOTE | 2020-09-18 05:46 | NUR ---
Orientee documentation: I have reviewed and agree with all interventions, medication administered, assessments performed and documented by Amber VU .
--- NOTE | 2020-09-18 06:10 | NUR ---
Problems reprioritized. Patient report given, questions answered & plan of care reviewed with Luz Maria VU.
--- NOTE | 2020-09-18 06:10 | NUR ---
Problems reprioritized. Patient report given, questions answered & plan of care reviewed with Luz Maria VU.
[2020-09-18 06:32] LABS: ALBUMIN 4.1 G/DL (3.4-5.0); ANION GAP 13 (8-16); BASOPHILS % (AUTO) 0.3 % (0-1); BLOOD UREA NITROGEN 12 MG/DL (7-18); BUN/CREATININE RATIO 11.9 (6.6-38.0); CALCIUM 10.5 MG/DL (8.5-10.1); CHLORIDE 109 MMOL/L (99-107); CREATININE 1.01 MG/DL (0.40-0.90); EOSINOPHILS # (AUTO) 0.1 X10'3 (0-0.9); EOSINOPHILS % (AUTO) 0.8 % (0-6); GLUCOSE 97 MG/DL (70-104); HEMATOCRIT 34.4 % (35.0-45.0); HEMOGLOBIN 11.4 g/dl (12.0-16.0); LYMPHOCYTES # (AUTO) 1.7 X10'3 (1.1-4.8); LYMPHOCYTES % (AUTO) 13.6 % (21-51); MAGNESIUM 2.1 MG/DL (1.5-2.4); MEAN CORPUSCULAR HEMOGLOBIN 30.4 PG (27.0-31.0); MEAN CORPUSCULAR HGB CONC 33.2 g/dL (33.0-36.5); MEAN CORPUSCULAR VOLUME 91.6 FL (78-98); MEAN PLATELET VOLUME 8.5 FL (7.4-10.4); MONOCYTES # (AUTO) 0.5 X10'3 (0-0.9); MONOCYTES % (AUTO) 4.4 % (2-12); NEUTROPHILS # (AUTO) 10.1 X10'3 (1.8-7.7); NEUTROPHILS % (AUTO) 80.9 % (42-75); PLATELET COUNT 248 X10'3 (140-440); POTASSIUM 3.6 MMOL/L (3.5-5.1); RED BLOOD COUNT 3.76 X10'6 (4.20-5.60); RED CELL DISTRIBUTION WIDTH 13.5 % (11.5-14.5); SODIUM 146 MMOL/L (135-145); TOTAL CARBON DIOXIDE 23.9 MMOL/L (24-32); WHITE BLOOD COUNT 12.5 X10'3 (4.5-11.0); eGFR 56 ML/MIN
--- NOTE | 2020-09-18 06:36 | NUR ---
Patient in room PCU 3014. I have received report from Amber Aden RN and Kell VU and had the opportunity to ask questions and assume patient care.
[2020-09-18] MEDS: budesonide 0.5mg/2ml UD nebule IH SCH (07:58)
[2020-09-18] MEDS ORDERED: vitamin D (cholecalciferol) 1,000 unit tablet PO SCH (08:00)
[2020-09-18] MEDS: K and/or MAG REPLACEMENT MC SCH ×2 (08:00→20:00)
[2020-09-18] MEDS: calcium carbonate 500mg tablet PO SCH ×2 (08:36→20:12)
[2020-09-18] MEDS: propranolol 10mg tablet PO SCH ×4 (08:37→20:12)
[2020-09-18] MEDS: duloxetine 30mg CAPSULE.DR PO SCH (08:37)
[2020-09-18] MEDS: gabapentin 300mg capsule PO SCH ×3 (08:37→20:12)
[2020-09-18] MEDS: pantoprazole 40mg Tablet.DR PO SCH (08:37)
[2020-09-18] MEDS: fluticasone nasal spray 16GM bottle NS SCH (08:37)
[2020-09-18] MEDS: docusate sod 100mg capsule PO SCH ×2 (08:37→20:11)
--- NOTE | 2020-09-18 11:32 | NUR ---
notified. PAGER ID: [phone] MESSAGE: RE: Paul Sloan. [id number]. Stress test resulted. patient back from stress test. ROMEO. Meghan. kwan. [phone].
[2020-09-18] MEDS ORDERED: quetiapine 100mg tablet PO PRN (13:00)
[2020-09-18] MEDS ORDERED: QUEtiapine 25mg tablet PO ONE (13:00)
[2020-09-18] MEDS ORDERED: traZODone 50mg tablet PO PRN (13:00)
--- NOTE | 2020-09-18 18:00 | NUR ---
Patient in room PCU 3014. I have received report from Omid VU and had the opportunity to ask questions and assume patient care with Kell VU.
--- NOTE | 2020-09-18 18:00 | NUR ---
Patient in room PCU 3014. I have received report from Luz Maria VU and had the opportunity to ask questions and assume patient care.
--- NOTE | 2020-09-18 18:14 | NUR ---
Problems reprioritized. Patient report given, questions answered & plan of care reviewed with HORACE Castorena and HORACE Clark.
--- NOTE | 2020-09-18 20:00 | NUR ---
Did not assess orthostatic vital signs. Patient confused and agitated. Patient wanted to stay in bed and reluctant to work with staff because "there is boiling water being poured on my feet". Blood pressure remained stable while sitting up in bed BP: 169/82 HR 90 Addendum: 09/19/20 at 0442 by Amber Aden RN Amended: Links added.
[2020-09-18] MEDS: atorvastatin 20mg tablet PO SCH (20:11)
[2020-09-18] MEDS: quetiapine 100mg tablet PO SCH (20:12)
[2020-09-19] VITALS (7 sets, daily range): BP systolic 109–173; BP diastolic 56–92
[2020-09-19] MEDS: LORazepam 0.5 MG tablet PO PRN ×2 (00:35→08:02)
--- NOTE | 2020-09-19 05:28 | NUR ---
Patient awake all night, having delusions and hallucinations. Patient refused her dinner and snacks saying "I don't want to get my teeth wet" and was anxious because "There is boiling water being poured on my feet".
--- NOTE | 2020-09-19 06:08 | NUR ---
Orientee documentation: I have reviewed and agree with all medication administered, interventions, assessments performed and documented by Amber VU .
--- NOTE | 2020-09-19 06:11 | NUR ---
Problems reprioritized. Patient report given, questions answered & plan of care reviewed with Luz Maria VU.
--- NOTE | 2020-09-19 06:14 | NUR ---
Problems reprioritized. Patient report given, questions answered & plan of care reviewed with Luz Maria VU.
--- NOTE | 2020-09-19 06:30 | NUR ---
Patient in room PCU 3014. I have received report from HORACE Clark and had the opportunity to ask questions and assume patient care.
[2020-09-19 07:02] LABS: BASOPHILS % (AUTO) 0.3 % (0-1); EOSINOPHILS % (AUTO) 0.4 % (0-6); HEMATOCRIT 34.7 % (35.0-45.0); HEMOGLOBIN 11.5 g/dl (12.0-16.0); LYMPHOCYTES # (AUTO) 1.6 X10'3 (1.1-4.8); LYMPHOCYTES % (AUTO) 14.1 % (21-51); MEAN CORPUSCULAR HEMOGLOBIN 30.4 PG (27.0-31.0); MEAN CORPUSCULAR HGB CONC 33.1 g/dL (33.0-36.5); MEAN CORPUSCULAR VOLUME 91.8 FL (78-98); MEAN PLATELET VOLUME 8.6 FL (7.4-10.4); MONOCYTES # (AUTO) 0.4 X10'3 (0-0.9); MONOCYTES % (AUTO) 3.2 % (2-12); NEUTROPHILS # (AUTO) 9.3 X10'3 (1.8-7.7); PLATELET COUNT 293 X10'3 (140-440); RED BLOOD COUNT 3.78 X10'6 (4.20-5.60); RED CELL DISTRIBUTION WIDTH 13.4 % (11.5-14.5); WHITE BLOOD COUNT 11.4 X10'3 (4.5-11.0)
[2020-09-19 07:14] LABS: ANION GAP 19 (8-16); BLOOD UREA NITROGEN 20 MG/DL (7-18); BUN/CREATININE RATIO 18.5 (6.6-38.0); CALCIUM 11.1 MG/DL (8.5-10.1); CHLORIDE 108 MMOL/L (99-107); CREATININE 1.08 MG/DL (0.40-0.90); GLUCOSE 82 MG/DL (70-104); MAGNESIUM 1.9 MG/DL (1.5-2.4); POTASSIUM 3.6 MMOL/L (3.5-5.1); SODIUM 147 MMOL/L (135-145); TOTAL CARBON DIOXIDE 20.2 MMOL/L (24-32); eGFR 51 ML/MIN
[2020-09-19] MEDS: K and/or MAG REPLACEMENT MC SCH ×2 (08:00→20:00)
[2020-09-19] MEDS: pantoprazole 40mg Tablet.DR PO SCH (08:01)
[2020-09-19] MEDS: calcium carbonate 500mg tablet PO SCH ×2 (08:01→20:27)
[2020-09-19] MEDS: docusate sod 100mg capsule PO SCH ×2 (08:01→20:27)
[2020-09-19] MEDS: QUEtiapine 25mg tablet PO SCH (08:02)
[2020-09-19] MEDS: duloxetine 30mg CAPSULE.DR PO SCH (08:02)
[2020-09-19] MEDS: gabapentin 300mg capsule PO SCH ×3 (08:02→20:28)
[2020-09-19] MEDS: propranolol 10mg tablet PO SCH ×4 (08:02→20:27)
[2020-09-19] MEDS: fluticasone nasal spray 16GM bottle NS SCH (08:10)
[2020-09-19] MEDS: normal saline 1000ml 1,000 ML IV SCH (09:05)
--- NOTE | 2020-09-19 18:00 | NUR ---
Patient in room PCU 3014. I have received report from Luz Maria VU and had the opportunity to ask questions and assume patient care.
--- NOTE | 2020-09-19 18:28 | NUR ---
Problems reprioritized. Patient report given, questions answered & plan of care reviewed with HORACE Castorena.
[2020-09-19] MEDS: quetiapine 100mg tablet PO SCH (20:28)
[2020-09-19] MEDS: atorvastatin 20mg tablet PO SCH (20:28)
[2020-09-20 02:00] VITALS: BP 111/56
--- NOTE | 2020-09-20 06:30 | NUR ---
Problems reprioritized. Patient report given, questions answered & plan of care reviewed with Michelle VU.
--- NOTE | 2020-09-20 06:32 | NUR ---
Patient in room PCU 3014. I have received report from Carmita VU and had the opportunity to ask questions and assume patient care.
[2020-09-20 06:45] LABS: BASOPHILS % (AUTO) 0.5 % (0-1); EOSINOPHILS # (AUTO) 0.3 X10'3 (0-0.9); EOSINOPHILS % (AUTO) 3.7 % (0-6); HEMATOCRIT 32.1 % (35.0-45.0); HEMOGLOBIN 10.9 g/dl (12.0-16.0); LYMPHOCYTES # (AUTO) 3.1 X10'3 (1.1-4.8); LYMPHOCYTES % (AUTO) 37.9 % (21-51); MEAN CORPUSCULAR HEMOGLOBIN 31.3 PG (27.0-31.0); MEAN CORPUSCULAR HGB CONC 34.1 g/dL (33.0-36.5); MEAN CORPUSCULAR VOLUME 91.8 FL (78-98); MEAN PLATELET VOLUME 8.5 FL (7.4-10.4); MONOCYTES # (AUTO) 0.7 X10'3 (0-0.9); MONOCYTES % (AUTO) 8.1 % (2-12); NEUTROPHILS % (AUTO) 49.8 % (42-75); PLATELET COUNT 238 X10'3 (140-440); RED CELL DISTRIBUTION WIDTH 13.1 % (11.5-14.5); WHITE BLOOD COUNT 8.1 X10'3 (4.5-11.0)
[2020-09-20 06:59] LABS: ALBUMIN 3.2 G/DL (3.4-5.0); ANION GAP 12 (8-16); BLOOD UREA NITROGEN 23 MG/DL (7-18); BUN/CREATININE RATIO 21.5 (6.6-38.0); CALCIUM 9.1 MG/DL (8.5-10.1); CHLORIDE 102 MMOL/L (99-107); CREATININE 1.07 MG/DL (0.40-0.90); GLUCOSE 84 MG/DL (70-104); MAGNESIUM 1.6 MG/DL (1.5-2.4); POTASSIUM 3.2 MMOL/L (3.5-5.1); SODIUM 140 MMOL/L (135-145); TOTAL CARBON DIOXIDE 26.2 MMOL/L (24-32); eGFR 52 ML/MIN
[2020-09-20 07:00] VITALS: BP 104/52
[2020-09-20] MEDS: K and/or MAG REPLACEMENT MC SCH (08:00)
[2020-09-20] MEDS: docusate sod 100mg capsule PO SCH (08:00)
[2020-09-20] MEDS: propranolol 10mg tablet PO SCH ×2 (08:27→13:48)
[2020-09-20] MEDS: pantoprazole 40mg Tablet.DR PO SCH (08:27)
[2020-09-20] MEDS: duloxetine 30mg CAPSULE.DR PO SCH (08:27)
[2020-09-20] MEDS: calcium carbonate 500mg tablet PO SCH (08:27)
[2020-09-20] MEDS: QUEtiapine 25mg tablet PO SCH (08:28)
[2020-09-20] MEDS: gabapentin 300mg capsule PO SCH ×2 (08:28→13:48)
[2020-09-20] MEDS: fluticasone nasal spray 16GM bottle NS SCH (08:38)
[2020-09-20] MEDS ORDERED: ibuprofen tablet 400 MG TABLET PO PRN (09:05)
[2020-09-20] MEDS: LORazepam 0.5 MG tablet PO PRN (10:07)
[2020-09-20] MEDS ORDERED: IBUP-1984 PO (10:45)
[2020-09-20] MEDS ORDERED: CLON-371 PO (10:45)
[2020-09-20] MEDS ORDERED: DULO30CA52 PO (10:45)
[2020-09-20 11:00] VITALS: BP 123/81
--- NOTE | 2020-09-20 12:07 | NUR ---
[employer] transportation contacted to provide patient with ride home. They will call with a pickup time.
--- NOTE | 2020-09-20 13:57 | NUR ---
Patient was dc to home. She walked to her cousin's house close by for a ride home. She did not have her phone and could not contact anyone. Patient did not have an IV. Rx were sent to [facility] [address]. DC instructions and warning s/s were reviewed with the patient and she verbalized understanding. Patient was alert, oriented, and appropriate at the time of dc.
[2020-09-21] MEDS ORDERED: duloxetine 30mg CAPSULE.DR PO SCH (08:00)
== END 2020-09-20 13:45 | disposition home or self-care (01) | DRG 52 ==
LOC: ER 20:52 → ED HOLD 09-17 09:03 → PCU 3S 09-17 15:23
PROVIDERS: ADMIT Internal Medicine; ATTEND Internal Medicine
DX: G92 Toxic encephalopathy (principal); F41.9 Anxiety disorder, unspecified; E78.5 Hyperlipidemia, unspecified; N17.9 Acute kidney failure, unspecified; I49.9 Cardiac arrhythmia, unspecified; J40 Bronchitis, not specified as acute or chronic; J44.9 Chronic obstructive pulmonary disease, unspecified; Z87.440 Personal history of urinary (tract) infections; M54.9 Dorsalgia, unspecified; F31.9 Bipolar disorder, unspecified; Z59.0 Homelessness; F15.90 Other stimulant use, unspecified, uncomplicated; N18.9 Chronic kidney disease, unspecified; S00.03XA Contusion of scalp, initial encounter; X58.XXXA Exposure to other specified factors, initial encounter; Y93.89 Activity, other specified; Y92.89 Other specified places as the place of occurrence of the external cause; Y99.8 Other external cause status; G89.4 Chronic pain syndrome; T50.995A Adverse effect of other drugs, medicaments and biological substances, initial encounter
CPT/HCPCS: 36415; 70450; 71045; 80048; 80053; 80305; 80320; 81003; 82140; 83735; 84145; 84484; 85025; 87081; 92508; 92616; 93005; 94640; 94760; 99285; G0378; J1200; J1630; J2060; J7030; J7626

== ENCOUNTER 2020-10-26 12:20 | Emergency (ER) | payer MEDICAID ==
[~2020-10-26 12:20] MED LIST changes: -BACL20TA2 PO; -CALC600T15 PO; +CALC600T35 PO; +CHOL10006 PO; -DULO-31 PO; +DULO30CA52 PO; -ERGO500093 PO; -HYDR-3964 PO; +IBUP-1984 PO; -IBUP-1986 PO
== END 2020-10-26 15:30 | disposition left against medical advice (07) ==
LOC: ER 12:21
DX: N30.90 Cystitis, unspecified without hematuria (principal); Z53.21 Procedure and treatment not carried out due to patient leaving prior to being seen by health care provider

== ENCOUNTER 2020-11-08 23:18 | Emergency (ER) | payer MEDICAID ==
[~2020-11-08] VITALS: Ht 165.1 cm; Wt 63.6 kg
[2020-11-09 01:16] VITALS: BP 110/68
== END 2020-11-09 01:19 | disposition home or self-care (01) ==
LOC: ER 23:18
DX: M79.661 Pain in right lower leg (principal); G89.29 Other chronic pain; J44.9 Chronic obstructive pulmonary disease, unspecified; F41.9 Anxiety disorder, unspecified; F31.9 Bipolar disorder, unspecified; F20.9 Schizophrenia, unspecified; F15.90 Other stimulant use, unspecified, uncomplicated; Z87.440 Personal history of urinary (tract) infections; Z98.890 Other specified postprocedural states; Z59.0 Homelessness; Z79.899 Other long term (current) drug therapy
CPT/HCPCS: 99283

== ENCOUNTER 2020-11-19 01:43 | Emergency (ER) | payer MEDICAID ==
[~2020-11-19] VITALS: Ht 165.1 cm; Wt 68.2 kg
--- NOTE | 2020-11-19 01:55 | NUR ---
PATIENT WALKED OUT OF LOBBY STEADY GAIT NO ASSISTANCE
--- NOTE | 2020-11-19 02:02 | NUR ---
PATIENT NOT IN LOBBY
--- NOTE | 2020-11-19 02:20 | NUR ---
PATIENT NOT IN LOBBY
--- NOTE | 2020-11-19 04:30 | NUR ---
PATIENT RETURNED TO LOBBY APPEARS TO BE INTOXICATED, AT FIRST STATED THAT SHE WALKED HOME TOOK HER "NIGHTTIME MEDS" AND THEN CAME BACK. LATER DENIED THIS STATING THAT SHE HAD JUST BEEN "WALKING THE STREETS" AND DENIES TAKING ANYTHING
--- NOTE | 2020-11-19 06:37 | NUR ---
pt sleeping in bed no distress noted.
[2020-11-19 08:10] VITALS: BP 110/75
== END 2020-11-19 08:56 | disposition home or self-care (01) ==
LOC: ER 01:44
DX: F19.10 Other psychoactive substance abuse, uncomplicated (principal); G89.4 Chronic pain syndrome; M79.604 Pain in right leg; J44.9 Chronic obstructive pulmonary disease, unspecified; F41.9 Anxiety disorder, unspecified; F31.9 Bipolar disorder, unspecified; F20.9 Schizophrenia, unspecified; F15.90 Other stimulant use, unspecified, uncomplicated; Z87.440 Personal history of urinary (tract) infections; Z59.0 Homelessness; Z98.890 Other specified postprocedural states; Z79.899 Other long term (current) drug therapy
CPT/HCPCS: 99284

== ENCOUNTER 2020-11-23 11:18 | Inpatient (IN) | payer MEDICAID ==
[~2020-11-23] VITALS: Ht 160 cm; Wt 65.0 kg
--- NOTE | 2020-11-23 11:58 | NUR ---
PT returned from CT
[2020-11-23 12:24] LABS: BASOPHILS % (AUTO) 0.1 % (0-1); EOSINOPHILS % (AUTO) 0.3 % (0-6); HEMATOCRIT 36.5 % (35.0-45.0); HEMOGLOBIN 12.3 g/dl (12.0-16.0); LYMPHOCYTES # (AUTO) 1.2 X10'3 (1.1-4.8); LYMPHOCYTES % (AUTO) 8.9 % (21-51); MEAN CORPUSCULAR HEMOGLOBIN 31.2 PG (27.0-31.0); MEAN CORPUSCULAR HGB CONC 33.7 g/dL (33.0-36.5); MEAN CORPUSCULAR VOLUME 92.6 FL (78-98); MEAN PLATELET VOLUME 8.5 FL (7.4-10.4); MONOCYTES # (AUTO) 0.5 X10'3 (0-0.9); MONOCYTES % (AUTO) 3.9 % (2-12); NEUTROPHILS # (AUTO) 11.7 X10'3 (1.8-7.7); NEUTROPHILS % (AUTO) 86.8 % (42-75); PLATELET COUNT 291 X10'3 (140-440); RED BLOOD COUNT 3.95 X10'6 (4.20-5.60); RED CELL DISTRIBUTION WIDTH 14.3 % (11.5-14.5); WHITE BLOOD COUNT 13.5 X10'3 (4.5-11.0)
[2020-11-23 12:28] LABS: ALANINE AMINOTRANSFERASE 17 U/L (12-78); ALBUMIN 4.1 G/DL (3.4-5.0); ALBUMIN/GLOBULIN RATIO 1.1 (1.1-1.5); ALKALINE PHOSPHATASE 80 IU/L (46-116); ANION GAP 15 (8-16); ASPARTATE AMINO TRANSFERASE 19 U/L (10-37); BILIRUBIN,TOTAL 0.3 MG/DL (0.1-1.0); BLOOD UREA NITROGEN 19 MG/DL (7-18); BUN/CREATININE RATIO 8.1 (6.6-38.0); CALCIUM 10.4 MG/DL (8.5-10.1); CHLORIDE 102 MMOL/L (99-107); CREATININE 2.34 MG/DL (0.40-0.90); GLUCOSE 120 MG/DL (70-104); POTASSIUM 3.7 MMOL/L (3.5-5.1); SODIUM 141 MMOL/L (135-145); TOTAL PROTEIN 7.8 G/DL (6.4-8.2); eGFR 21 ML/MIN
[2020-11-23 12:35] LABS: URINE HCG NEGATIVE (NEG)
[2020-11-23 12:36] LABS: ETHANOL < 0.010 GM/DL (0.0-0.010)
[2020-11-23 12:39] LABS: CLARITY,URINE CLOUDY (Clear); COLOR,URINE YELLOW (Yellow); GLUCOSE, URINE 250 mg/dl (Neg); KETONES,URINE NEGATIVE (Neg); LEUKOCYTE ESTERASE ,URINE SMALL (Neg); NITRITES, URINE NEGATIVE (Neg); OCCULT BLOOD,URINE NEGATIVE (Neg); PH,URINE 5.5 (4.8-8.0); PROTEIN,URINE NEGATIVE (Neg); UROBILINOGEN,URINE 0.2 E.U/dL (0.2-1.0)
[2020-11-23 12:41] LABS: UA COLLECTION TYPE NON-SPECIFIED
[2020-11-23 12:44] LABS: URINE AMPHETAMINE SCREEN NEGATIVE (Neg); URINE BARBITUATE SCREEN NEGATIVE (Neg); URINE BENZODIAZEPINES SCREEN NEGATIVE (Neg); URINE CANNABINOID SCREEN NEGATIVE (Neg); URINE COCAINE SCREEN NEGATIVE (Neg); URINE METHADONE SCREEN NEGATIVE (Neg); URINE OPIATE SCREEN NEGATIVE (Neg); URINE PHENCYCLIDINE SCREEN NEGATIVE (Neg)
[2020-11-23 12:55] LABS: BACTERIA,URINE 3+ /HPF (Neg); SQUAMOUS EPITHELIAL CELL,UR FEW /LPF (FEW); WBC CLUMPS,URINE MANY /HPF (NEGATIVE)
[2020-11-23 12:56] LABS: RBC,URINE 0-2 /HPF (0-2)
[2020-11-23] MEDS ORDERED: CLON-527 PO (12:59)
[2020-11-23] MEDS ORDERED: normal saline 1000ML IV soln IVB ONE (13:00)
[2020-11-23] MEDS ORDERED: CefTRIAXone 2gm/D5W 50ml BAG 50 ML IV ONE (13:05)
[2020-11-23] MEDS ORDERED: acetaminophen 325mg tablet PO PRN (13:40)
[2020-11-23] MEDS ORDERED: magnesium hydroxide 30ml (MOM) UD suspension PO PRN (13:40)
[2020-11-23] MEDS ORDERED: ondansetron/PF 4mg/2ml inj IV PRN (13:40)
[2020-11-23] MEDS ORDERED: mag hydrox/Alum hydrox/simeth 30ml oral suspension PO PRN (13:40)
[2020-11-23] MEDS: normal saline 1000ml 1,000 ML IV SCH (14:28)
--- NOTE | 2020-11-23 15:30 | NUR ---
Patient arrived from ED, Patient restless, agitated, impulsive, pulling at lines, trying to jump out of bed. 4 staff members assisting to keep patient safe. Call to Dr. Jain for intervention.
[2020-11-23] MEDS ORDERED: haloperidol lactate 5mg/ml inj IM ONE ×2 (15:45→17:25)
[2020-11-23 15:54] VITALS: BP 158/66
[2020-11-23] MEDS: LORazepam 2 mg/ml vial IV PRN ×2 (17:17→21:17)
[2020-11-23] MEDS ORDERED: haloperidol lactate 5mg/ml inj IM PRN (17:25)
--- NOTE | 2020-11-23 17:25 | NUR ---
Spoke with Dr. Jain at bedside about patients agitation, impulsiveness, constant grabbing at lines and swatting in the air. Showed physician the multiple skin abrasions, scabs and bruising on patient's head and extremities, patient is to restless to get pictures at this time. Dr. Jain discussed plan of care to alternate Ativan and Haldol to promote patient safety and a safe healing environment. Have enterprise application architect complete pictures of multiple skin wounds that were present upon admit, once calmed down and less impulsive.
[2020-11-23 18:00] VITALS: BP 138/74
--- NOTE | 2020-11-23 18:10 | NUR ---
Problems reprioritized. Patient report given, questions answered & plan of care reviewed with Amber VU.
[2020-11-23] MEDS ORDERED: KETO5DRO11 EACHEYE (18:30)
--- NOTE | 2020-11-23 18:32 | NUR ---
Patient in room U 3016. I have received report from Leigh VU and had the opportunity to ask questions and assume patient care. Rounded on patient. Sitter in room. Patient sleeping but rouses with stimulation. Patient trying to climb out of bed. Unable to respond verbally. Patient has soft restraints on her wrists.
[2020-11-23] MEDS ORDERED: ERGO500093 PO (18:33)
[2020-11-23] MEDS ORDERED: [UNRECOGNIZED DRUG - CODE] PO (18:37)
[2020-11-23] MEDS ORDERED: DULO60CA65 PO (18:38)
[2020-11-23] MEDS ORDERED: BACL20TA2 PO (18:41)
[2020-11-23] MEDS ORDERED: IBUP-1986 PO (18:58)
[2020-11-23] MEDS ORDERED: LORA10TA7 PO (19:01)
[2020-11-23] MEDS ORDERED: MECL-159 PO (19:03)
[2020-11-23] MEDS: heparin, porcine 5000 units/ml vial SQ SCH (21:17)
[2020-11-23 22:00] VITALS: BP 154/84
[2020-11-24] VITALS (7 sets, daily range): BP systolic 94–155; BP diastolic 46–87
[2020-11-24] MEDS: normal saline 1000ml 1,000 ML IV SCH ×2 (00:11→07:18)
--- NOTE | 2020-11-24 04:57 | NUR ---
Dr. cooley for restraint renewal PAGER ID: [phone] MESSAGE: Re: Bethany Combs 64F rm [id number]. Here for toxic encephalopathy. Pt acutely confused, pulling at lines, climbing out of bed, unable to be reoriented. May we have a restraint renewal? Amber [id number]
[2020-11-24] MEDS: LORazepam 2 mg/ml vial IV PRN ×3 (05:11→14:15)
--- NOTE | 2020-11-24 05:20 | NUR ---
Patient remained acutely confused and agitated throughout shift. Gave IV Ativan and IM haldol as ordered PRN. Patient still restrained, page sent for order renewal. Sitter still in room. Photos taken of wounds and placed in chart. Patient still unable to answer questions and does not respond when spoken too. Arousable to painful stimuli. Becomes agitated during nursing care. Will occasionally scream and frequently tries to climb out of bed.
--- NOTE | 2020-11-24 06:00 | NUR ---
Patient agitated despite Ativan and Haldol. Screaming out and climbing out of bed at shift change.
--- NOTE | 2020-11-24 06:10 | NUR ---
Patient in room PCU 3016. I have received report from Amber VU and had the opportunity to ask questions and assume patient care.
--- NOTE | 2020-11-24 06:10 | NUR ---
Problems reprioritized. Patient report given, questions answered & plan of care reviewed with Leigh VU.
--- NOTE | 2020-11-24 06:11 | NUR ---
Rounded on patient. Sitter in room. Patient screaming and agitated. Impulsively rising up pulling on anything she can grab, kicking legs all over bed. Patient trying to climb out of bed. Unable to respond verbally. Patient has soft restraints on her wrists.
--- NOTE | 2020-11-24 06:26 | NUR ---
Paged Dr. Jain PAGER ID: [phone] MESSAGE: [facility] [id number] Combs, Bethany combative, restless and screaming. Adivan and Haldol not working. Constant aggression all night. Can we try Abbie? Leigh VU [phone]
--- NOTE | 2020-11-24 06:30 | NUR ---
Restraint Renewal Needed, Paged Dr. Jain PAGER ID: [phone] MESSAGE: [facility] [id number] Bethany Combs, Need restraints renewed. Please call Leigh VU [phone]
[2020-11-24] MEDS: heparin, porcine 5000 units/ml vial SQ SCH ×2 (07:18→19:53)
[2020-11-24] MEDS: CefTRIAXone/D5W-Rocephin 1gm 50 ML IV SCH (07:18)
[2020-11-24] MEDS ORDERED: ziprasidone IM 20mg inj **IM only IM ONE (07:20)
[2020-11-24 07:54] LABS: BASOPHILS % (AUTO) 0.1 % (0-1); EOSINOPHILS % (AUTO) 0 % (0-6); HEMATOCRIT 32.8 % (35.0-45.0); HEMOGLOBIN 10.8 g/dl (12.0-16.0); LYMPHOCYTES % (AUTO) 7.6 % (21-51); MEAN CORPUSCULAR HEMOGLOBIN 30.5 PG (27.0-31.0); MEAN CORPUSCULAR VOLUME 92.5 FL (78-98); MEAN PLATELET VOLUME 8.7 FL (7.4-10.4); MONOCYTES # (AUTO) 0.7 X10'3 (0-0.9); MONOCYTES % (AUTO) 5.6 % (2-12); NEUTROPHILS # (AUTO) 11.2 X10'3 (1.8-7.7); NEUTROPHILS % (AUTO) 86.7 % (42-75); PLATELET COUNT 304 X10'3 (140-440); RED BLOOD COUNT 3.55 X10'6 (4.20-5.60); RED CELL DISTRIBUTION WIDTH 14.2 % (11.5-14.5)
[2020-11-24 08:12] LABS: ALBUMIN 3.9 G/DL (3.4-5.0); ANION GAP 16 (8-16); BLOOD UREA NITROGEN 12 MG/DL (7-18); BUN/CREATININE RATIO 10.6 (6.6-38.0); CALCIUM 9.4 MG/DL (8.5-10.1); CHLORIDE 114 MMOL/L (99-107); CREATININE 1.13 MG/DL (0.40-0.90); GLUCOSE 126 MG/DL (70-104); POTASSIUM 3.8 MMOL/L (3.5-5.1); SODIUM 152 MMOL/L (135-145); TOTAL CARBON DIOXIDE 21.9 MMOL/L (24-32); eGFR 49 ML/MIN
[2020-11-24] MEDS: dextrose 5%-water 1,000 ML IV SCH (09:07)
[2020-11-24] MEDS ORDERED: ziprasidone IM 20mg inj **IM only IM PRN (09:40)
[2020-11-24] MEDS ORDERED: docusate sod 100mg capsule PO PRN (11:55)
[2020-11-24] MEDS ORDERED: meclizine 12.5mg tablet PO PRN (11:55)
[2020-11-24] MEDS: calcium carbonate 500mg tablet PO SCH ×2 (12:16→19:53)
--- NOTE | 2020-11-24 12:55 | NUR ---
Paged Dr. Jain PAGER ID: [phone] MESSAGE: [facility] [id number] Bethany Combs new orders for PO medications, patient does not follow simple commands, concern with aspiration. placed swallow eval per protocol. currently unable to give PO medications. [phone] Leigh VU
[2020-11-24] MEDS: propranolol 10mg tablet PO SCH ×3 (13:00→20:49)
[2020-11-24] MEDS: gabapentin 300mg capsule PO SCH ×2 (13:00→20:49)
[2020-11-24] MEDS: baclofen 10mg tablet PO SCH ×2 (13:00→19:54)
[2020-11-24] MEDS: naphazoline/pheniramine eye 1 DROP BOTTLE EACHEYE SCH (16:16)
[2020-11-24 18:11] LABS: ALBUMIN 3.7 G/DL (3.4-5.0); ANION GAP 15 (8-16); BLOOD UREA NITROGEN 10 MG/DL (7-18); BUN/CREATININE RATIO 10.3 (6.6-38.0); CALCIUM 9.1 MG/DL (8.5-10.1); CHLORIDE 113 MMOL/L (99-107); CREATININE 0.97 MG/DL (0.40-0.90); GLUCOSE 98 MG/DL (70-104); POTASSIUM 3.2 MMOL/L (3.5-5.1); SODIUM 150 MMOL/L (135-145); TOTAL CARBON DIOXIDE 22.2 MMOL/L (24-32); eGFR 58 ML/MIN
--- NOTE | 2020-11-24 18:25 | NUR ---
Problems reprioritized. Patient report given, questions answered & plan of care reviewed with Amber VU.
--- NOTE | 2020-11-24 18:30 | NUR ---
Patient in room PCU 3016. I have received report from Leigh VU and had the opportunity to ask questions and assume patient care. Rounded on patient. Patient in soft restraints, IV being placed of ultrasound. Patient denies needs.
[2020-11-24] MEDS ORDERED: potassium Cl 20 mEq SR tablet PO PRN ×2 (19:10)
[2020-11-24] MEDS ORDERED: potassium Cl 40MEQ/1/2NS 520ml 520 ML IV PRN ×2 (19:10)
[2020-11-24] MEDS: K and/or MAG REPLACEMENT MC SCH (20:00)
[2020-11-24] MEDS: budesonide 0.5mg/2ml UD nebule IH SCH (20:00)
[2020-11-24] MEDS: quetiapine 100mg tablet PO SCH (20:49)
[2020-11-25] MEDS: naphazoline/pheniramine eye 1 DROP BOTTLE EACHEYE SCH ×4 (00:16→23:43)
--- NOTE | 2020-11-25 00:21 | NUR ---
Unable to give second potassium 20 mEq [place], patient sedate and unable to swallow.
[2020-11-25 02:00] VITALS: BP 151/85
--- NOTE | 2020-11-25 04:25 | NUR ---
called for restraint renewal. Patient is acutely confused, pulling at lines, and does not follow commands. Dr. Mccollum comfortable renewing restraint order.
--- NOTE | 2020-11-25 04:26 | NUR ---
Patient was able to swallow PO meds with apple sauce and sip water while awake. Once asleep she was very hard to wake up and could not follow commands and unable to swallow water. Will inform day shift that she may be ready for diet advancement while awake. Swallow eval recommends pureed diet with thin liquids.
[2020-11-25] MEDS: dextrose 5%-water 1,000 ML IV SCH (05:00)
[2020-11-25 06:00] VITALS: BP 142/81
--- NOTE | 2020-11-25 06:20 | NUR ---
Patient in room PCU 3016. I have received report from Amber VU and had the opportunity to ask questions and assume patient care.
--- NOTE | 2020-11-25 06:31 | NUR ---
Problems reprioritized. Patient report given, questions answered & plan of care reviewed with Leigh VU.
[2020-11-25 07:16] LABS: BASOPHILS % (AUTO) 0.6 % (0-1); EOSINOPHILS # (AUTO) 0.2 X10'3 (0-0.9); HEMATOCRIT 36.9 % (35.0-45.0); HEMOGLOBIN 12.2 g/dl (12.0-16.0); LYMPHOCYTES # (AUTO) 2.3 X10'3 (1.1-4.8); LYMPHOCYTES % (AUTO) 27.2 % (21-51); MEAN CORPUSCULAR HEMOGLOBIN 31.5 PG (27.0-31.0); MEAN CORPUSCULAR HGB CONC 33.2 g/dL (33.0-36.5); MEAN CORPUSCULAR VOLUME 94.9 FL (78-98); MEAN PLATELET VOLUME 8.2 FL (7.4-10.4); MONOCYTES # (AUTO) 1.1 X10'3 (0-0.9); MONOCYTES % (AUTO) 12.5 % (2-12); NEUTROPHILS # (AUTO) 4.9 X10'3 (1.8-7.7); NEUTROPHILS % (AUTO) 57.7 % (42-75); PLATELET COUNT 246 X10'3 (140-440); RED BLOOD COUNT 3.89 X10'6 (4.20-5.60); RED CELL DISTRIBUTION WIDTH 14.1 % (11.5-14.5); WHITE BLOOD COUNT 8.6 X10'3 (4.5-11.0)
[2020-11-25 07:25] LABS: ALBUMIN 3.5 G/DL (3.4-5.0); ANION GAP 14 (8-16); BLOOD UREA NITROGEN 9 MG/DL (7-18); BUN/CREATININE RATIO 9.9 (6.6-38.0); CALCIUM 9.2 MG/DL (8.5-10.1); CHLORIDE 107 MMOL/L (99-107); CREATININE 0.91 MG/DL (0.40-0.90); GLUCOSE 78 MG/DL (70-104); POTASSIUM 3.5 MMOL/L (3.5-5.1); SODIUM 146 MMOL/L (135-145); TOTAL CARBON DIOXIDE 24.7 MMOL/L (24-32); eGFR 63 ML/MIN
[2020-11-25] MEDS: K and/or MAG REPLACEMENT MC SCH ×2 (07:36→20:00)
[2020-11-25] MEDS: baclofen 10mg tablet PO SCH ×2 (07:50→19:47)
[2020-11-25] MEDS: propranolol 10mg tablet PO SCH ×4 (07:50→21:38)
[2020-11-25] MEDS: gabapentin 300mg capsule PO SCH ×3 (07:50→21:38)
[2020-11-25] MEDS: loratadine 10mg tablet PO SCH (07:50)
[2020-11-25] MEDS: pantoprazole 40mg Tablet.DR PO SCH (07:50)
[2020-11-25] MEDS: CefTRIAXone/D5W-Rocephin 1gm 50 ML IV SCH (07:50)
[2020-11-25] MEDS: calcium carbonate 500mg tablet PO SCH ×2 (07:50→19:47)
[2020-11-25] MEDS: heparin, porcine 5000 units/ml vial SQ SCH ×2 (07:51→19:48)
[2020-11-25] MEDS: fluticasone nasal spray 16GM bottle NS SCH (07:52)
[2020-11-25] MEDS ORDERED: duloxetine 30mg CAPSULE.DR PO SCH ×3 (08:00→13:02)
[2020-11-25] MEDS: budesonide 0.5mg/2ml UD nebule IH SCH ×2 (09:10→19:58)
[2020-11-25 11:00] VITALS: BP 108/68
--- NOTE | 2020-11-25 11:41 | NUR ---
Patient is less confused, follows simple commands, no longer pulling on line. No longer aggressive. Restraints removed, Dr. Stoddard informed. Sitter at bedside Addendum: 11/25/20 at 1144 by Mercedez Mora RN CRM intact.
[2020-11-25] MEDS ORDERED: ondansetron 4mg rapidly disintigrating tab PO PRN (13:00)
[2020-11-25] MEDS: ibuprofen tablet 400 MG TABLET PO PRN ×2 (13:33→19:48)
[2020-11-25 15:00] VITALS: BP 112/73
[2020-11-25 18:00] VITALS: BP 118/74
--- NOTE | 2020-11-25 18:07 | NUR ---
Problems reprioritized. Patient report given, questions answered & plan of care reviewed with Amber VU.
--- NOTE | 2020-11-25 18:10 | NUR ---
Patient in room PCU 3016. I have received report from Leigh VU. and had the opportunity to ask questions and assume patient care. Rounded on patient, she is awake and sitting up in bed, sitter at bedside. Introduced self and discussed plan of care for the evening. Patient unrestrained and alert. Denies needs.
[2020-11-25] MEDS: lactobacillus rhamnosus 10,000 MMU CELLS/CAPSULE PO SCH (19:47)
--- NOTE | 2020-11-25 21:01 | NUR ---
Called Dr. Mccollum for patient requested Nicotine patch. Patient smokes approximately 1 pack per day. No new orders per Dr. Mccollum.
[2020-11-25] MEDS: quetiapine 100mg tablet PO SCH (21:38)
--- NOTE | 2020-11-25 21:40 | NUR ---
Patient walked 3 laps around the unit with her sitter/aide. Addendum: 11/26/20 at 0122 by Amber Aden RN Wrong time, patient finished walking at 2240
[2020-11-25 22:00] VITALS: BP 146/84
--- NOTE | 2020-11-25 22:21 | NUR ---
Patient walking the unit with sitter/coating and embossing unit operator. Complaining of feeling anxious this evening
[2020-11-25] MEDS: LORazepam 2 mg/ml vial IV PRN (23:43)
[2020-11-26] MEDS: dextrose 5%-water 1,000 ML IV SCH ×2 (01:00→05:35)
--- NOTE | 2020-11-26 01:19 | NUR ---
Patient relates she is having visual hallucinations, she is seeing "things on the floor that aren't there". She also relates she occasionally hears voices but cannot discern what they are saying to her. She relates the voices are not friendly but denies command hallucinations. She states they are not telling her to hurt herself or others.
[2020-11-26 02:00] VITALS: BP 107/63
[2020-11-26 06:00] VITALS: BP 117/66
--- NOTE | 2020-11-26 06:15 | NUR ---
Patient in room PCU 3016. I have received report from Amber VU and had the opportunity to ask questions and assume patient care.
--- NOTE | 2020-11-26 06:16 | NUR ---
Problems reprioritized. Patient report given, questions answered & plan of care reviewed with Carolina VU.
[2020-11-26 07:17] LABS: BASOPHILS % (AUTO) 0.7 % (0-1); EOSINOPHILS # (AUTO) 0.3 X10'3 (0-0.9); EOSINOPHILS % (AUTO) 5.7 % (0-6); HEMATOCRIT 31.6 % (35.0-45.0); HEMOGLOBIN 10.9 g/dl (12.0-16.0); LYMPHOCYTES # (AUTO) 2.2 X10'3 (1.1-4.8); LYMPHOCYTES % (AUTO) 36.7 % (21-51); MEAN CORPUSCULAR HEMOGLOBIN 31.5 PG (27.0-31.0); MEAN CORPUSCULAR HGB CONC 34.5 g/dL (33.0-36.5); MEAN CORPUSCULAR VOLUME 91.4 FL (78-98); MEAN PLATELET VOLUME 8.8 FL (7.4-10.4); MONOCYTES # (AUTO) 0.5 X10'3 (0-0.9); MONOCYTES % (AUTO) 8.8 % (2-12); NEUTROPHILS # (AUTO) 2.9 X10'3 (1.8-7.7); NEUTROPHILS % (AUTO) 48.1 % (42-75); PLATELET COUNT 265 X10'3 (140-440); RED BLOOD COUNT 3.45 X10'6 (4.20-5.60); RED CELL DISTRIBUTION WIDTH 13.8 % (11.5-14.5)
[2020-11-26] MEDS: CefTRIAXone/D5W-Rocephin 1gm 50 ML IV SCH (07:41)
[2020-11-26] MEDS: lactobacillus rhamnosus 10,000 MMU CELLS/CAPSULE PO SCH ×2 (07:45→20:57)
[2020-11-26] MEDS: duloxetine 30mg CAPSULE.DR PO SCH (07:45)
[2020-11-26] MEDS: calcium carbonate 500mg tablet PO SCH ×2 (07:45→20:58)
[2020-11-26] MEDS: propranolol 10mg tablet PO SCH ×4 (07:45→20:58)
[2020-11-26] MEDS: pantoprazole 40mg Tablet.DR PO SCH (07:46)
[2020-11-26] MEDS: gabapentin 300mg capsule PO SCH ×3 (07:46→20:58)
[2020-11-26] MEDS: baclofen 10mg tablet PO SCH ×2 (07:46→20:57)
[2020-11-26 07:51] LABS: ALBUMIN 3.2 G/DL (3.4-5.0); ANION GAP 10 (8-16); BLOOD UREA NITROGEN 24 MG/DL (7-18); BUN/CREATININE RATIO 20.7 (6.6-38.0); CALCIUM 9.1 MG/DL (8.5-10.1); CHLORIDE 103 MMOL/L (99-107); CREATININE 1.16 MG/DL (0.40-0.90); GLUCOSE 116 MG/DL (70-104); POTASSIUM 4.1 MMOL/L (3.5-5.1); SODIUM 138 MMOL/L (135-145); TOTAL CARBON DIOXIDE 24.8 MMOL/L (24-32); eGFR 47 ML/MIN
[2020-11-26] MEDS: heparin, porcine 5000 units/ml vial SQ SCH ×2 (07:51→20:58)
[2020-11-26] MEDS: naphazoline/pheniramine eye 1 DROP BOTTLE EACHEYE SCH ×2 (07:52→16:14)
[2020-11-26] MEDS: fluticasone nasal spray 16GM bottle NS SCH (07:52)
[2020-11-26] MEDS: loratadine 10mg tablet PO SCH (07:58)
[2020-11-26] MEDS: K and/or MAG REPLACEMENT MC SCH ×2 (08:00→20:00)
[2020-11-26] MEDS: budesonide 0.5mg/2ml UD nebule IH SCH ×3 (08:00→19:35)
--- NOTE | 2020-11-26 08:04 | NUR ---
PAGER ID: [phone] MESSAGE: May I advance Patient Bethany Combs Room 8949P to a regular or heart healthy diet? Please advise. Carolina ext [phone]
[2020-11-26 11:00] VITALS: BP 122/65
[2020-11-26] MEDS: LORazepam 2 mg/ml vial IV PRN (14:31)
[2020-11-26 15:00] VITALS: BP 113/78
[2020-11-26 15:31] LABS: CLARITY,URINE CLEAR (Clear); COLOR,URINE STRAW (Yellow); GLUCOSE, URINE NEGATIVE (Neg); KETONES,URINE NEGATIVE (Neg); LEUKOCYTE ESTERASE ,URINE NEGATIVE (Neg); NITRITES, URINE NEGATIVE (Neg); OCCULT BLOOD,URINE NEGATIVE (Neg); PROTEIN,URINE NEGATIVE (Neg); UROBILINOGEN,URINE 0.2 E.U/dL (0.2-1.0)
[2020-11-26 15:33] LABS: UA COLLECTION TYPE CLN CATCH MIDSTREAM
[2020-11-26 19:00] VITALS: BP 128/75
[2020-11-26] MEDS: albuterol 2.5 MG/3 ML nebule NEB PRN (19:35)
[2020-11-26] MEDS: quetiapine 100mg tablet PO SCH (20:58)
[2020-11-26] MEDS: ibuprofen tablet 400 MG TABLET PO PRN (20:59)
[2020-11-26] MEDS ORDERED: magnesium 4gm in 100ml NS 100 ML IV PRN (22:50)
[2020-11-26] MEDS ORDERED: magnesium Cl slow-release 64mg tablet PO PRN (22:50)
[2020-11-26 23:00] VITALS: BP 115/73
[2020-11-27 03:00] VITALS: BP 99/59
[2020-11-27 06:00] VITALS: BP 118/65
--- NOTE | 2020-11-27 06:20 | NUR ---
Patient in room PCU 3016. I have received report from Gabby VU and had the opportunity to ask questions and assume patient care.
[2020-11-27] MEDS: budesonide 0.5mg/2ml UD nebule IH SCH ×2 (07:05→19:47)
[2020-11-27] MEDS: gabapentin 300mg capsule PO SCH ×3 (07:57→20:26)
[2020-11-27] MEDS: lactobacillus rhamnosus 10,000 MMU CELLS/CAPSULE PO SCH ×2 (07:57→19:08)
[2020-11-27] MEDS: propranolol 10mg tablet PO SCH ×4 (07:57→20:26)
[2020-11-27] MEDS: pantoprazole 40mg Tablet.DR PO SCH (07:57)
[2020-11-27] MEDS: loratadine 10mg tablet PO SCH (07:57)
[2020-11-27] MEDS: duloxetine 30mg CAPSULE.DR PO SCH (07:57)
[2020-11-27] MEDS: fluticasone nasal spray 16GM bottle NS SCH (07:58)
[2020-11-27] MEDS: calcium carbonate 500mg tablet PO SCH ×2 (07:58→19:08)
[2020-11-27] MEDS: naphazoline/pheniramine eye 1 DROP BOTTLE EACHEYE SCH ×3 (07:58→16:33)
[2020-11-27] MEDS: heparin, porcine 5000 units/ml vial SQ SCH ×2 (08:00→19:07)
[2020-11-27] MEDS: K and/or MAG REPLACEMENT MC SCH ×4 (08:00→19:09)
[2020-11-27] MEDS: baclofen 10mg tablet PO SCH ×2 (08:00→19:08)
[2020-11-27 08:13] LABS: BASOPHILS % (AUTO) 0.7 % (0-1); EOSINOPHILS # (AUTO) 0.3 X10'3 (0-0.9); EOSINOPHILS % (AUTO) 4.5 % (0-6); HEMATOCRIT 31.2 % (35.0-45.0); HEMOGLOBIN 10.6 g/dl (12.0-16.0); LYMPHOCYTES # (AUTO) 2.4 X10'3 (1.1-4.8); LYMPHOCYTES % (AUTO) 39.8 % (21-51); MEAN CORPUSCULAR HEMOGLOBIN 31.3 PG (27.0-31.0); MEAN CORPUSCULAR HGB CONC 34.1 g/dL (33.0-36.5); MEAN CORPUSCULAR VOLUME 91.9 FL (78-98); MEAN PLATELET VOLUME 8.7 FL (7.4-10.4); MONOCYTES # (AUTO) 0.5 X10'3 (0-0.9); MONOCYTES % (AUTO) 8.6 % (2-12); NEUTROPHILS # (AUTO) 2.8 X10'3 (1.8-7.7); NEUTROPHILS % (AUTO) 46.4 % (42-75); PLATELET COUNT 264 X10'3 (140-440); RED CELL DISTRIBUTION WIDTH 14.1 % (11.5-14.5); WHITE BLOOD COUNT 6.1 X10'3 (4.5-11.0)
[2020-11-27 08:18] LABS: ALBUMIN 3.1 G/DL (3.4-5.0); ANION GAP 10 (8-16); BLOOD UREA NITROGEN 34 MG/DL (7-18); CHLORIDE 106 MMOL/L (99-107); CREATININE 1.26 MG/DL (0.40-0.90); GLUCOSE 101 MG/DL (70-104); MAGNESIUM 2.2 MG/DL (1.5-2.4); PHOSPHORUS 4.4 MG/DL (2.3-4.5); POTASSIUM 4.6 MMOL/L (3.5-5.1); SODIUM 141 MMOL/L (135-145); TOTAL CARBON DIOXIDE 25.5 MMOL/L (24-32); eGFR 43 ML/MIN
[2020-11-27] MEDS: CefTRIAXone/D5W-Rocephin 1gm 50 ML IV SCH (08:41)
[2020-11-27] MEDS: ibuprofen tablet 400 MG TABLET PO PRN (09:24)
[2020-11-27 11:00] VITALS: BP 118/75
[2020-11-27 15:00] VITALS: BP 122/68
[2020-11-27 18:00] VITALS: BP 134/67
--- NOTE | 2020-11-27 18:05 | NUR ---
Problems reprioritized. Patient report given, questions answered & plan of care reviewed with Pua RN.
[2020-11-27] MEDS: albuterol 2.5 MG/3 ML nebule NEB PRN (19:47)
[2020-11-27] MEDS: LORazepam 2 mg/ml vial IV PRN (19:51)
[2020-11-27] MEDS: quetiapine 100mg tablet PO SCH (20:26)
[2020-11-27 22:00] VITALS: BP 107/70
[2020-11-28] MEDS: naphazoline/pheniramine eye 1 DROP BOTTLE EACHEYE SCH ×3 (00:31→17:07)
[2020-11-28 02:00] VITALS: BP 110/68
--- NOTE | 2020-11-28 06:00 | NUR ---
Report received from Susan VU
--- NOTE | 2020-11-28 06:11 | NUR ---
Problems reprioritized. Patient report given, questions answered & plan of care reviewed with HORACE Gilliland.
[2020-11-28 07:00] VITALS: BP 110/70
[2020-11-28] MEDS: budesonide 0.5mg/2ml UD nebule IH SCH ×2 (07:34→19:57)
[2020-11-28 07:38] LABS: BASOPHILS # (AUTO) 0.1 X10'3 (0-0.2); BASOPHILS % (AUTO) 0.9 % (0-1); EOSINOPHILS # (AUTO) 0.3 X10'3 (0-0.9); EOSINOPHILS % (AUTO) 4.5 % (0-6); HEMATOCRIT 32.9 % (35.0-45.0); HEMOGLOBIN 11.2 g/dl (12.0-16.0); LYMPHOCYTES # (AUTO) 2.3 X10'3 (1.1-4.8); LYMPHOCYTES % (AUTO) 40.1 % (21-51); MEAN CORPUSCULAR HEMOGLOBIN 31.3 PG (27.0-31.0); MEAN CORPUSCULAR HGB CONC 34.2 g/dL (33.0-36.5); MEAN CORPUSCULAR VOLUME 91.7 FL (78-98); MEAN PLATELET VOLUME 8.8 FL (7.4-10.4); MONOCYTES # (AUTO) 0.6 X10'3 (0-0.9); NEUTROPHILS # (AUTO) 2.5 X10'3 (1.8-7.7); NEUTROPHILS % (AUTO) 44.5 % (42-75); PLATELET COUNT 281 X10'3 (140-440); RED BLOOD COUNT 3.59 X10'6 (4.20-5.60); WHITE BLOOD COUNT 5.6 X10'3 (4.5-11.0)
[2020-11-28 07:40] LABS: ALBUMIN 3.3 G/DL (3.4-5.0); ANION GAP 11 (8-16); BLOOD UREA NITROGEN 37 MG/DL (7-18); BUN/CREATININE RATIO 30.6 (6.6-38.0); CALCIUM 9.6 MG/DL (8.5-10.1); CHLORIDE 106 MMOL/L (99-107); CREATININE 1.21 MG/DL (0.40-0.90); GLUCOSE 89 MG/DL (70-104); MAGNESIUM 2.3 MG/DL (1.5-2.4); PHOSPHORUS 4.4 MG/DL (2.3-4.5); SODIUM 142 MMOL/L (135-145); TOTAL CARBON DIOXIDE 25.3 MMOL/L (24-32); eGFR 45 ML/MIN
[2020-11-28] MEDS: K and/or MAG REPLACEMENT MC SCH ×4 (08:00→20:00)
[2020-11-28] MEDS: calcium carbonate 500mg tablet PO SCH ×2 (08:51→20:13)
[2020-11-28] MEDS: gabapentin 300mg capsule PO SCH ×3 (08:51→20:12)
[2020-11-28] MEDS: lactobacillus rhamnosus 10,000 MMU CELLS/CAPSULE PO SCH ×2 (08:51→20:12)
[2020-11-28] MEDS: baclofen 10mg tablet PO SCH ×2 (08:51→20:12)
[2020-11-28] MEDS: propranolol 10mg tablet PO SCH ×4 (08:52→20:13)
[2020-11-28] MEDS: duloxetine 30mg CAPSULE.DR PO SCH (08:52)
[2020-11-28] MEDS: loratadine 10mg tablet PO SCH (08:52)
[2020-11-28] MEDS: heparin, porcine 5000 units/ml vial SQ SCH ×2 (08:56→20:13)
[2020-11-28] MEDS: LORazepam 2 mg/ml vial IV PRN (08:59)
--- NOTE | 2020-11-28 09:00 | NUR ---
0900- Pt states feeling anxious. PRN IV Ativan 1mg given. IVP stopped because patient states the IV was burning. No IV Ativan was administered. Wasted Ativan with Jessica VU. Unable to give IV Rocephin. Pt refused starting a new PIV 1115- paged Dr. Stoddard regarding PIV refusal and unable to given IV Rocephin 1200- Order placed of IM Rocephin 1gm
[2020-11-28] MEDS: pantoprazole 40mg Tablet.DR PO SCH (09:10)
[2020-11-28] MEDS: fluticasone nasal spray 16GM bottle NS SCH (09:12)
--- NOTE | 2020-11-28 10:08 | NUR ---
Initial: Pt presented with AMS, admit for toxic encephalopathy, acute agitation versus psychosis, and UTI, all resolved per MD note. Pt on a 1799 and medically cleared, waiting for [facility] to evaluate for 5150 per MD note. Pt on a regular diet documented with 75-100% PO intake meeting estimated nutrient needs. LBM 11/27, with PRN bowel care available last given 11/25. No nutrition intervention implemented at this time. Will continue to follow. Recommendations: 1) Continue regular diet 2) Bowel care per rx 3) Scaled weight this admit; weekly scaled weights thereafter Addendum: 11/28/20 at [address] Amended: Links added.
[2020-11-28 11:00] VITALS: BP 123/79
[2020-11-28] MEDS ORDERED: CefTRIAXone 1000mg IM Kit (w/lidocaine diluent) IM ONE (11:55)
--- NOTE | 2020-11-28 14:30 | NUR ---
PAGER ID: [phone] MESSAGE: [phone]- Vzvo. Request PO Ativan and Nicotine patch. Patito VU [phone]
[2020-11-28 15:00] VITALS: BP 111/81
[2020-11-28] MEDS ORDERED: nicotine 21mg patch - 24 hr TD ONE (15:55)
[2020-11-28 18:00] VITALS: BP 121/51
--- NOTE | 2020-11-28 18:25 | NUR ---
Patient in room PCU 3016. I have received report from HORACE Caputo and had the opportunity to ask questions and assume patient care.
[2020-11-28] MEDS: quetiapine 100mg tablet PO SCH (20:13)
[2020-11-28] MEDS: ibuprofen tablet 400 MG TABLET PO PRN (20:27)
[2020-11-28 22:00] VITALS: BP 132/80
[2020-11-28] MEDS: LORazepam 0.5 MG tablet PO PRN (23:27)
[2020-11-29] MEDS: naphazoline/pheniramine eye 1 DROP BOTTLE EACHEYE SCH ×2 (00:37→08:31)
[2020-11-29 02:00] VITALS: BP 88/60
--- NOTE | 2020-11-29 02:00 | NUR ---
Pt BP low at 88/60 manual. Pt arousable and asymptomatic. Had pt sit up on edge of the bed before ambulating with assist to bathroom. Pt reported no dizziness; no syncopal episode. Assisted pt back to bed. Will continue to monitor per unit protocol.
[2020-11-29 06:00] VITALS: BP 83/46
--- NOTE | 2020-11-29 06:00 | NUR ---
Patient in room PCU 3016. I have received report from Estella VU and had the opportunity to ask questions and assume patient care.
--- NOTE | 2020-11-29 06:10 | NUR ---
Problems reprioritized. Patient report given, questions answered & plan of care reviewed with HORACE Oliva.
[2020-11-29] MEDS: budesonide 0.5mg/2ml UD nebule IH SCH (07:31)
[2020-11-29] MEDS ORDERED: nicotine 21mg patch - 24 hr TD SCH (08:00)
[2020-11-29] MEDS: propranolol 10mg tablet PO SCH ×2 (08:00→13:00)
[2020-11-29] MEDS: K and/or MAG REPLACEMENT MC SCH ×2 (08:00)
[2020-11-29] MEDS: heparin, porcine 5000 units/ml vial SQ SCH (08:30)
[2020-11-29] MEDS: fluticasone nasal spray 16GM bottle NS SCH (08:31)
[2020-11-29] MEDS: gabapentin 300mg capsule PO SCH ×2 (08:31→13:25)
[2020-11-29] MEDS: loratadine 10mg tablet PO SCH (08:32)
[2020-11-29] MEDS: baclofen 10mg tablet PO SCH (08:32)
[2020-11-29] MEDS: pantoprazole 40mg Tablet.DR PO SCH (08:32)
[2020-11-29] MEDS: duloxetine 30mg CAPSULE.DR PO SCH (08:32)
[2020-11-29] MEDS: lactobacillus rhamnosus 10,000 MMU CELLS/CAPSULE PO SCH (08:32)
[2020-11-29] MEDS: calcium carbonate 500mg tablet PO SCH (08:32)
[2020-11-29] MEDS: LORazepam 0.5 MG tablet PO PRN (09:05)
[2020-11-29 11:00] VITALS: BP 106/57
[2020-11-29] MEDS: ibuprofen tablet 400 MG TABLET PO PRN (13:25)
--- NOTE | 2020-11-29 14:30 | NUR ---
Problems reprioritized. Patient report given, questions answered & plan of care reviewed with Cintia VU. Patient stable at transfer of care.
--- NOTE | 2020-11-29 14:30 | NUR ---
Patient transferred to [facility], per provider orders. No PIV. Telemetry discontinued. Belongings sent with patient. Wheeled to [facility] via nursing staff.
== END 2020-11-29 14:30 | DRG 52 ==
LOC: ER 11:19 → ED HOLD 13:37 → UNDOADMIN 15:09 → ED HOLD 15:09 → PCU 3S 15:20
PROVIDERS: ADMIT Family Medicine; ATTEND Family Medicine
DX: G92 Toxic encephalopathy (principal); N17.0 Acute kidney failure with tubular necrosis; F31.9 Bipolar disorder, unspecified; N39.0 Urinary tract infection, site not specified; F15.90 Other stimulant use, unspecified, uncomplicated; F41.9 Anxiety disorder, unspecified; F20.9 Schizophrenia, unspecified; J44.9 Chronic obstructive pulmonary disease, unspecified; J40 Bronchitis, not specified as acute or chronic; G89.29 Other chronic pain; M54.9 Dorsalgia, unspecified; E87.0 Hyperosmolality and hypernatremia; S00.83XA Contusion of other part of head, initial encounter; X58.XXXA Exposure to other specified factors, initial encounter; Y93.89 Activity, other specified; Y92.89 Other specified places as the place of occurrence of the external cause; Y99.8 Other external cause status; Z59.0 Homelessness
CPT/HCPCS: 36415; 70450; 70486; 80048; 80053; 80305; 80320; 81001; 81003; 81025; 82948; 83735; 84100; 84443; 85025; 87081; 92508; 92616; 93005; 94640; 94760; 97110; 97161; 97530; 97535; 99285; G0378; J0696; J1630; J1644; J2060; J3486; J7030; J7070; J7626

== ENCOUNTER 2020-12-09 01:44 | Emergency (ER) | payer MEDICAID ==
[~2020-12-09] VITALS: Ht 167.6 cm; Wt 66.3 kg
[~2020-12-09 01:44] MED LIST changes: -ALBU90AE2 PO; -ATOR20TA66 PO; +BAC10T PO; +CALC-1008 PO; -CALC600T35 PO; -CHOL10006 PO; -CLON-371 PO; +DOCU100C40 PO; +DULO60CA65 PO; +ERGO500093 PO; -GABA-532 PO; +GABA300C PO; -IBUP-1984 PO; +IBUP-1986 PO; +LORA10TA65 PO; +MECL-226 PO; +NICO-687 TD; -OMEP-50 PO; +PANT40TA54 PO; -PROP10TA10 PO; +gabapentin capsule PO
--- NOTE | 2020-12-09 01:57 | NUR ---
Patient mumbling- states she is speaking with her voices. Denies any suicidal ideation stating "I haven't thought of that since I quit drinking".
[2020-12-09] MEDS ORDERED: normal saline 1000ML IV soln IVB ONE (02:45)
[2020-12-09] MEDS ORDERED: [UNRECOGNIZED DRUG - CODE] PO (03:34)
[2020-12-09] MEDS ORDERED: FLUT16SP26 BOTHNARES (03:34)
[2020-12-09] MEDS ORDERED: DULO30CA52 PO (03:34)
[2020-12-09] MEDS ORDERED: CALC600T35 PO (03:34)
[2020-12-09] MEDS ORDERED: PROP20TA6 PO (03:34)
[2020-12-09] MEDS ORDERED: PANT-47 PO (03:34)
[2020-12-09] MEDS ORDERED: GABA-530 PO (03:34)
[2020-12-09] MEDS ORDERED: BUDE10.26 PO (03:34)
[2020-12-09] MEDS ORDERED: LORA10TA7 PO (03:34)
[2020-12-09] MEDS ORDERED: OMEP-50 PO (03:34)
[2020-12-09] MEDS ORDERED: CLON1TAB94 PO (03:34)
[2020-12-09] MEDS ORDERED: TRAZ-251 PO (03:34)
[2020-12-09] MEDS ORDERED: QUET200T30 PO (03:34)
[2020-12-09] MEDS ORDERED: BACL20TA2 PO (03:34)
[2020-12-09] MEDS ORDERED: MECL-159 PO (03:34)
[2020-12-09 03:54] LABS: BASOPHILS % (AUTO) 0.4 % (0-1); EOSINOPHILS # (AUTO) 0.1 X10'3 (0-0.9); EOSINOPHILS % (AUTO) 1.4 % (0-6); HEMATOCRIT 35.6 % (35.0-45.0); HEMOGLOBIN 11.9 g/dl (12.0-16.0); LYMPHOCYTES # (AUTO) 1.8 X10'3 (1.1-4.8); LYMPHOCYTES % (AUTO) 18.5 % (21-51); MEAN CORPUSCULAR HEMOGLOBIN 31.1 PG (27.0-31.0); MEAN CORPUSCULAR HGB CONC 33.5 g/dL (33.0-36.5); MEAN CORPUSCULAR VOLUME 92.8 FL (78-98); MEAN PLATELET VOLUME 7.8 FL (7.4-10.4); MONOCYTES # (AUTO) 0.6 X10'3 (0-0.9); MONOCYTES % (AUTO) 6.2 % (2-12); NEUTROPHILS # (AUTO) 7.1 X10'3 (1.8-7.7); NEUTROPHILS % (AUTO) 73.5 % (42-75); PLATELET COUNT 367 X10'3 (140-440); RED BLOOD COUNT 3.84 X10'6 (4.20-5.60); RED CELL DISTRIBUTION WIDTH 14.4 % (11.5-14.5); WHITE BLOOD COUNT 9.7 X10'3 (4.5-11.0)
[2020-12-09 03:59] LABS: URINE HCG NEGATIVE (NEG)
[2020-12-09 04:08] LABS: ALANINE AMINOTRANSFERASE 19 U/L (12-78); ALBUMIN 4.6 G/DL (3.4-5.0); ALBUMIN/GLOBULIN RATIO 1.2 (1.1-1.5); ALKALINE PHOSPHATASE 132 IU/L (46-116); ANION GAP 17 (8-16); ASPARTATE AMINO TRANSFERASE 28 U/L (10-37); BILIRUBIN,TOTAL 0.6 MG/DL (0.1-1.0); BLOOD UREA NITROGEN 19 MG/DL (7-18); BUN/CREATININE RATIO 17.8 (6.6-38.0); CALCIUM 9.8 MG/DL (8.5-10.1); CHLORIDE 103 MMOL/L (99-107); CREATININE 1.07 MG/DL (0.40-0.90); GLUCOSE 96 MG/DL (70-104); POTASSIUM 3.7 MMOL/L (3.5-5.1); SODIUM 141 MMOL/L (135-145); TOTAL CARBON DIOXIDE 21.2 MMOL/L (24-32); TOTAL PROTEIN 8.6 G/DL (6.4-8.2); eGFR 52 ML/MIN
[2020-12-09 04:09] LABS: ETHANOL < 0.010 GM/DL (0.0-0.010)
[2020-12-09 04:09] LABS: CLARITY,URINE SLIGHTLY CLOUDY (Clear); COLOR,URINE YELLOW (Yellow); GLUCOSE, URINE NEGATIVE (Neg); KETONES,URINE 15 mg/dl (Neg); LEUKOCYTE ESTERASE ,URINE LARGE (Neg); NITRITES, URINE NEGATIVE (Neg); OCCULT BLOOD,URINE NEGATIVE (Neg); PH,URINE 6.5 (4.8-8.0); PROTEIN,URINE TRACE mg/dl (Neg); UROBILINOGEN,URINE 0.2 E.U/dL (0.2-1.0)
[2020-12-09 04:14] LABS: UA COLLECTION TYPE CLN CATCH MIDSTREAM
[2020-12-09 04:17] LABS: BACTERIA,URINE 3+ /HPF (Neg); RBC,URINE NONE SEEN /HPF (0-2); SQUAMOUS EPITHELIAL CELL,UR MODERATE /LPF (FEW)
[2020-12-09 04:22] LABS: URINE AMPHETAMINE SCREEN POSITIVE (Neg); URINE BARBITUATE SCREEN NEGATIVE (Neg); URINE BENZODIAZEPINES SCREEN NEGATIVE (Neg); URINE CANNABINOID SCREEN NEGATIVE (Neg); URINE COCAINE SCREEN NEGATIVE (Neg); URINE METHADONE SCREEN NEGATIVE (Neg); URINE OPIATE SCREEN NEGATIVE (Neg); URINE PHENCYCLIDINE SCREEN NEGATIVE (Neg)
[2020-12-09] MEDS ORDERED: mag hydrox/Alum hydrox/simeth 30ml oral suspension PO PRN (08:10)
[2020-12-09] MEDS ORDERED: normal saline 1000ml 1,000 ML IV SCH (08:10)
[2020-12-09] MEDS ORDERED: ondansetron/PF 4mg/2ml inj IV PRN (08:10)
[2020-12-09] MEDS ORDERED: acetaminophen 325mg tablet PO PRN (08:10)
[2020-12-09] MEDS ORDERED: magnesium hydroxide 30ml (MOM) UD suspension PO PRN (08:10)
--- NOTE | 2020-12-09 10:10 | NUR ---
dr vasquez came to nurses station and stated that pt need to be on psy eval not on floor ,as per md he will take to dialysis social worker ,charge and md.
--- NOTE | 2020-12-09 11:12 | NUR ---
patient up to the bathroom talking to herself.Cooperative and able to redirect at this time.
--- NOTE | 2020-12-09 12:41 | NUR ---
pt is resting quietly in room, calm and cooperative
--- NOTE | 2020-12-09 13:21 | NUR ---
CAUTION LUNCH TRAY GIVEN TO PATIENT
--- NOTE | 2020-12-09 14:18 | NUR ---
PT IS AWAKE, ALERT, CALM, COOPERATIVE, TALKING TO SELF
[2020-12-09] MEDS ORDERED: docusate sod 100mg capsule PO PRN (15:45)
[2020-12-09] MEDS ORDERED: albuterol 2.5 MG/3 ML nebule NEB PRN (15:45)
[2020-12-09] MEDS ORDERED: clonazePAM 1mg tablet PO PRN (15:45)
[2020-12-09] MEDS ORDERED: ibuprofen tablet 400 MG TABLET PO PRN (15:50)
[2020-12-09] MEDS ORDERED: meclizine 12.5mg tablet PO PRN (15:55)
[2020-12-09] MEDS: albuterol 2.5 MG/3 ML nebule NEB SCH ×2 (17:00→20:18)
[2020-12-09] MEDS: propranolol 10mg tablet PO SCH ×2 (17:00→20:14)
[2020-12-09] MEDS ORDERED: haloperidol lactate 5mg/ml inj IM ONE (17:45)
[2020-12-09] MEDS ORDERED: LORazepam 2 mg/ml vial IM ONE (17:45)
[2020-12-09] MEDS ORDERED: diphenhydrAMINE 50 mg/ml inj IM ONE (17:45)
--- NOTE | 2020-12-09 18:00 | NUR ---
Pt is agitated, throwing herself on floor, trying to leave unit.
--- NOTE | 2020-12-09 18:10 | NUR ---
order from provider for 10 mg ativan, 50 mg benadryl, 2 mg ativan, IM. Pt accepted meds without issue.
[2020-12-09] MEDS: budesonide 0.5mg/2ml UD nebule IH SCH (20:00)
--- NOTE | 2020-12-09 20:06 | NUR ---
pt is resting, no s/s of distress noted.
[2020-12-09] MEDS: baclofen 10mg tablet PO SCH (20:14)
[2020-12-09] MEDS: gabapentin 300mg capsule PO SCH (20:14)
[2020-12-09] MEDS ORDERED: traZODone 50mg tablet PO SCH (21:00)
[2020-12-09] MEDS ORDERED: quetiapine 100mg tablet PO SCH (21:00)
--- NOTE | 2020-12-09 21:48 | NUR ---
Pt is sleeping. she ate all of her dinner and dessert. no needs at this time.
--- NOTE | 2020-12-09 23:22 | NUR ---
pt is sleeping, snoring at times. no s/s of distress noted.
--- NOTE | 2020-12-10 00:20 | NUR ---
Pt continues to sleep, snoring at times. no s/s of distress noted.
--- NOTE | 2020-12-10 02:06 | NUR ---
pt moving around in her bed
--- NOTE | 2020-12-10 03:41 | NUR ---
pt is asleep, rr unlabored.
--- NOTE | 2020-12-10 05:54 | NUR ---
Pt is sleeping on her back, snoring. no s/s of distress noted.
[2020-12-10 06:20] VITALS: BP 98/75
--- NOTE | 2020-12-10 07:00 | NUR ---
Pt sleeping calmly without complaints or signs of distress.
[2020-12-10] MEDS: budesonide 0.5mg/2ml UD nebule IH SCH (07:24)
[2020-12-10] MEDS: albuterol 2.5 MG/3 ML nebule NEB SCH ×3 (07:24→15:17)
[2020-12-10] MEDS ORDERED: pantoprazole 40mg Tablet.DR PO SCH ×2 (07:30→08:00)
[2020-12-10] MEDS ORDERED: calcium carbonate/vitamin D3 tablet PO SCH (08:00)
[2020-12-10] MEDS ORDERED: loratadine 10mg tablet PO SCH (08:00)
[2020-12-10] MEDS ORDERED: fluticasone nasal spray 16GM bottle NS SCH (08:00)
[2020-12-10] MEDS ORDERED: enoxaparin 40mg/0.4ml syringe SUBCUT SCH (08:00)
[2020-12-10] MEDS ORDERED: duloxetine 30mg CAPSULE.DR PO SCH (08:00)
[2020-12-10] MEDS: baclofen 10mg tablet PO SCH (08:13)
[2020-12-10] MEDS: propranolol 10mg tablet PO SCH ×3 (08:14→17:21)
[2020-12-10] MEDS: gabapentin 300mg capsule PO SCH ×2 (08:14→14:09)
--- NOTE | 2020-12-10 09:00 | NUR ---
Pt awoke for breakfast and took medication. Pt speech is slurred and pt is confused and does not answer questions with a related answer. Pt has now returned to sleep.
--- NOTE | 2020-12-10 10:59 | NUR ---
Pt has been sleeping calmly without signs of distress.
--- NOTE | 2020-12-10 11:27 | NUR ---
medical clearance faxed to [facility]
--- NOTE | 2020-12-10 12:59 | NUR ---
Patient is resting quietly, no signs/symptoms of distress. Lunch tray at bedside.
--- NOTE | 2020-12-10 15:00 | NUR ---
Pt awoke for lunch and has since fallen to sleep. Pt calm while awake without any complaints or requests.
[2020-12-10] MEDS ORDERED: ergocalciferol (vit D2) capsule 50,000 UNITS (1,250mcg) CAPSULE PO SCH (15:45)
== END 2020-12-10 17:25 | disposition home or self-care (01) ==
LOC: ER 01:45 → ED HOLD 08:06 → UNDOADMIN 08:06 → ED HOLD 08:07 → UNDODISIN 12-10 17:24
DX: T43.621A Poisoning by amphetamines, accidental (unintentional), initial encounter (principal); R41.0 Disorientation, unspecified; J44.9 Chronic obstructive pulmonary disease, unspecified; G89.29 Other chronic pain; F17.200 Nicotine dependence, unspecified, uncomplicated; F15.90 Other stimulant use, unspecified, uncomplicated; F23 Brief psychotic disorder; G93.41 Metabolic encephalopathy; Z87.81 Personal history of (healed) traumatic fracture; Z72.89 Other problems related to lifestyle; Z59.0 Homelessness; Z79.899 Other long term (current) drug therapy; Y92.89 Other specified places as the place of occurrence of the external cause
CPT/HCPCS: 36415; 80053; 80305; 80320; 81001; 81025; 85025; 94640; 96360; 96361; 96372; 99285; J1200; J1630; J2060; J7030; 94760; G0378; J7626

== ENCOUNTER 2021-01-25 18:47 | Emergency (ER) | payer MEDICAID ==
[~2021-01-25] VITALS: Ht 167.6 cm; Wt 61.3 kg
[~2021-01-25 18:47] MED LIST changes: -BAC10T PO; +BACL20TA2 PO; -BUDE10.2 INH; +BUDE10.26 PO; -CALC-1008 PO; +CALC600T35 PO; +CLON1TAB94 PO; -DOCU100C40 PO; -DULO60CA65 PO; -FLUT16SP11 BOTHNARES; +FLUT16SP26 BOTHNARES; +GABA-530 PO; -GABA300C PO; -LORA10TA65 PO; +LORA10TA7 PO; +MECL-159 PO; -MECL-226 PO; -NICO-687 TD; +OMEP-50 PO; +PANT-47 PO; -PANT40TA54 PO; +PROP20TA6 PO; +QUET200T31 PO; -QUET300T2 PO; +[UNRECOGNIZED DRUG - CODE] PO; -gabapentin capsule PO
[2021-01-25] MEDS ORDERED: ketorolac tromethamine 15mg/ml inj. IM ONE (20:40)
[2021-01-25 21:50] VITALS: BP 158/87
== END 2021-01-25 21:53 | disposition home or self-care (01) ==
LOC: ER 18:48
DX: G89.29 Other chronic pain (principal); R52 Pain, unspecified; J44.9 Chronic obstructive pulmonary disease, unspecified; F15.90 Other stimulant use, unspecified, uncomplicated; Z59.0 Homelessness; Z79.899 Other long term (current) drug therapy
CPT/HCPCS: 96372; 99283; J1885

== ENCOUNTER 2021-01-30 01:22 | Emergency (ER) | payer MEDICAID ==
[~2021-01-30] VITALS: Ht 165.1 cm; Wt 75.0 kg
[2021-01-30 01:24] VITALS: BP 149/74
[2021-01-30] MEDS ORDERED: ketorolac trometh. 30mg/ml inj. IM ONE (02:20)
== END 2021-01-30 02:33 | disposition home or self-care (01) ==
LOC: ER 01:23
DX: R25.2 Cramp and spasm (principal); M79.604 Pain in right leg; M79.605 Pain in left leg; G89.29 Other chronic pain; J44.9 Chronic obstructive pulmonary disease, unspecified; F15.90 Other stimulant use, unspecified, uncomplicated; F17.200 Nicotine dependence, unspecified, uncomplicated; Z87.440 Personal history of urinary (tract) infections; Z79.899 Other long term (current) drug therapy; Z87.81 Personal history of (healed) traumatic fracture; Z72.89 Other problems related to lifestyle; Z59.0 Homelessness
CPT/HCPCS: 96372; 99283; J1885